=== PATIENT | male | born 1950 | race Caucasian/White ===

== ENCOUNTER 2020-06-29 00:51 | Outpatient (CLI) | payer MEDICARE, MEDICAID, SELFPAY ==
[2020-06-29 17:08] LABS: SARS-CoV-2 RNA PCR Negative
== END 2020-06-29 00:52 | disposition home or self-care (01) ==
PROVIDERS: PCP Internal Medicine; Visit Provider Internal Medicine Critical Care Medicine
DX: R68.89 Other general symptoms and signs (principal); Z20.828 Contact with and (suspected) exposure to other viral communicable diseases
CPT/HCPCS: 87635; C9803; U0003

== ENCOUNTER 2020-07-02 08:30 | Outpatient (CLI) | payer MEDICARE, MEDICAID, SELFPAY ==
--- NOTE | 2020-07-25 16:18 | WPDSLEEPSTUD ---
Sleep Study Date of Study: 07/02/20 Ordering Provider: Ana Pascual MD Interpreting Physician: Ana Pascual MD Sleep Study Type: Polysomnogram Height: 1.7 m Weight: 108.862 kg Body Mass Index: 37.5 Neck Circumference (inches): 17 [place]: 14 Reason for Sleep Study LESLIE; loud snoring, daytime fatigue and need for naps Sleep History Patricio Salgado is a 70 year-old man referred by Dr. Emil Morse for loud snoring, daytime fatigue and need for naps. His sleep is non-refreshing, with frequent tossing and turning at night, which has been going on for years. He occasionally wakes feeling short of breath or having heartburn, belching or coughing. He reports difficulty falling asleep at night. He occasionally has difficulty sleeping when he has a cold, occasionally wakes up gasping for breath at night, never sweats excessively at night, although he does occasionally notice his heart pounding excessively at night. He does not fall asleep involuntarily, while driving, or with physical effort. He does not have loss of muscle tone with strong emotion, does not have daytime difficulty due to excessive sleepiness, rarely feels paralyzed on waking or falling sleep. He never has vivid dreams upon waking or falling asleep, and is never afraid to go to sleep. He occasionally has nightmares, rarely remembers his dreams. He frequently has racing thoughts, denies feeling sad or depressed, occasionally has anxiety. He occasionally has muscular tension, rarely notices parts of his body jerking, frequently kicks at night, occasionally has crawly achy feelings in his legs and occasionally has leg pain at night. He denies morning jaw pain and grinding his teeth during sleep. He is not bothered by pain in the day. Occasionally he is awakened with pain at night. He does not wake in the morning with stiffness, sore or achy muscles, or pain in the neck and spine. He does take naps in the afternoon of evening, and sometimes feels refreshed after a short nap. He feels better in the afternoon than in the morning. He frequently has morning headaches and daytime sleepiness. He wakes with a dry mouth, so severe that he can't swallow until he drinks water during the night. He requires at least 1-2 trips to the bathroom at night to urinate. He goes to bed between 8:00 p.m., usually closer to 9:00 p.m. waking at 5:00 a.m. Weekend schedule is the same. He has 1 cup of coffee in the morning, no soda. His legs are always cold and his feet constantly swell. He has has hypertension, currently better controlled. He has frequent crazy type dreams. He wakes at midnight to take his medications. I explained that he can adjust his meds to take them 3 times a day without waking up in the middle of the night. He says that he has taken his pills like this for years so he is used to waking in the middle of the night. He has multiple medical co-morbidities including hypertension coronary artery disease hyperlipidemia. [place] = 14, elevated. The patient had a home sleep test ordered by Dr. Marcus, cognos bi developer, and the patient said that he could not sleep during the testing as he was constipated. 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
[2020-07-25 19:30] VITALS: BMI 37.5
== END 2020-07-02 08:31 | disposition home or self-care (01) ==
LOC: ANHCSM 08:31
PROVIDERS: PCP Internal Medicine; Visit Provider Internal Medicine Critical Care Medicine
DX: G47.33 Obstructive sleep apnea (adult) (pediatric) (principal)
CPT/HCPCS: 95810

== ENCOUNTER 2022-09-15 11:03 | Inpatient (IN) | payer OTHER, SELFPAY ==
[2022-09-15] VITALS (9 sets, daily range): BP systolic 94–131; BP diastolic 61–84; PULSE 75–113; RESP 14–24; TEMP 36.6–37.6; O2SAT 92–98; BMI 33.7
--- NOTE | ~2022-09-15 | US_ITS ---
EXAMINATION: US right upper quadrant DATE: 09/29/2022 07:16 INDICATION: Gallbladder wall thickening. TECHNIQUE: Multiple grayscale and Doppler ultrasound images of the abdomen were obtained. COMPARISON: Chest CT 09/27/2022 FINDINGS: The visualized portions of the head, body, and tail of the pancreas are normal. The liver i s normal without focal lesion. There is normal flow in main portal vein. The gallbladder is normal in size and contains sludge. The gallstones seen by CT are not well visualized. Gallbladder wall thicke rachel is noted. There was no sonographic Bowser sign. The common duct is not visualized, but was vincenzo l in caliber on the CT . IMPRESSION: 1. Cholelithiasis. Gallbladder wall thickening is most likely secondary to interstitial edema. No gal lbladder distention or sonographic Bowser sign to suggest acute cholecystitis. Reviewed, dictated and finalized at location A. RENCE AND INSTRUCTION LIBRARIAN IMPRESSION: 1. Cholelithiasis. Gallbladder wall thickening is most likely secondary to inte rstitial edema. No gallbladder distention or sonographic Bowser sign to suggest acute cholecystitis.
--- NOTE | ~2022-09-15 | US_ITS ---
Renal-Bladder ultrasound Clinical History: Renal failure Technique: Real-time sonographic imaging of the kidneys and urinary bladder was performed. Findings: The right kidney is not visualized. The left kidney measures 12.3 cm. There is no left hydr onephrosis or renal calculus identified. Left renal cortical echogenicity is within normal limits. No left renal mass lesion is identified. The urinary bladder is partially distended at the time of this exam. No intraluminal echoes are ident ified. No abnormal wall thickening is seen. Impression: Unremarkable left kidney and bladder. Right kidney not seen. Correlate for prior nephrectomy. Reviewed, dictated and finalized at location [] NE COMMUNICATIONS MANAGER Impression: Unremarkable left kidney and bladder. Right kidney not seen. Correlate for prior nephrectomy.
--- NOTE | ~2022-09-15 | US_ITS ---
EXAMINATION: US thoracentesis DATE: 09/28/2022 15:52 INDICATION: Right pleural effusion TECHNIQUE: The procedure and its risks and benefits were discussed with the patient. Potential risks discussed included bleeding, infection, and pneumothorax. The patient understood the risks and agreed to proceed. The skin was prepped and draped in sterile fashion. 1% lidocaine was used for local anes thesia. Under ultrasound guidance, a 5 Fr catheter with trochar was advanced into the right pleural e ffusion. Fluid was aspirated. The catheter was removed, and a dressing was applied. There were no imm ediate complications. FINDINGS: Ultrasound images demonstrate a small right pleural effusion and the catheter within the fluid. IMPRESSION: 1. Successful ultrasound-guided thoracentesis yielding 740 mL of clear yellow fluid. Reviewed, dictated and finalized at location A. OSITOR APPRENTICE
--- NOTE | ~2022-09-15 | XR_ITS ---
EXAMINATION: XR chest 1V portable INDICATION: Shortness of breath TECHNIQUE: Portable AP chest at 1147 hours COMPARISON: None available FINDINGS: There is a small to moderate size right pleural effusion. There are airspace opacities of t he lung bases and right midlung zone. No pneumothorax is identified. Cardiomegaly is noted. IMPRESSION: 1. Yadhn-lk-cftrgbsn size right pleural effusion. 2. Airspace opacities of the lung bases and right midlung zone, consistent with atelectasis versus pn eumonia. Reviewed, dictated and finalized at location A. T MARKETING REPRESENTATIVE IMPRESSION: 1. Ifkqy-nz-akbuaycj size right pleural effusion. 2. Airspace opacities of the lung bases and right midlung zone, consistent with atelectasis versus pneumonia.
--- NOTE | ~2022-09-15 | NM_ITS ---
EXAMINATION: NM renal flow and function DATE: 10/03/2022 15:01 INDICATION: Acute kidney injury TECHNIQUE: 7.5 mCi Tc-99m MAG3 was administered IV. 40 mg furosemide was administered IV immediately afterward. The patient was scanned in the supine position. A posterior abdominal radionuclide angiog haley was obtained. A subsequent time course of static images of the kidneys, ureters, and bladder was obtained. COMPARISON: Ultrasound dated 09/25/2022 FINDINGS: The posterior abdominal radionuclide angiogram and sequential static images show normal size, positio n, and morphology of the left kidney. The right kidney is again not visualized suggesting it is eithe r severely atrophic or developmentally or surgically absent. Peak renal parenchymal uptake was indete rminate with continually rising activity in the left kidney over the 30 minute course of the study. N o evident photopenic region at the left renal hilum to suggest significant hydronephrosis. No evident accumulation of activity at the left renal pelvis no evident activity in the left ureter. IMPRESSION: 1. Indeterminate left renal peak renal parenchymal uptake and half-time of clearance with continuall y increasing activity in the left kidney throughout the 30 minutes of observation consistent with non specific nephropathy. 2. No evident right renal activity suggesting either severe atrophy or developmental or surgical abs ence of the right kidney. Correlate with clinical history. Reviewed, dictated and finalized at location A. DEICER ELEMENT WINDER IMPRESSION: 1. Indeterminate left renal peak renal parenchymal uptake and half-time of cale arance with continually increasing activity in the left kidney throughout the 3 0 minutes of observation consistent with nonspecific nephropathy. 2. No evident right renal activity suggesting either severe atrophy or develop mental or surgical absence of the right kidney. Correlate with clinical history .
--- NOTE | ~2022-09-15 | MR_ITS ---
MRI of the pelvis CLINICAL HISTORY: Osteomyelitis, sacral decubitus ulcer TECHNIQUE: T1-weighted and T2 fat sat images were acquired in the axial, coronal, and sagittal planes . Axial diffusion-weighted imaging and T1 fat sat imaging was performed. Following intravenous admini stration of 20 MultiHance gadolinium, T1-weighted fat-sat imaging was performed in the axial, coronal , and sagittal planes. FINDINGS: Sacral decubitus ulcer is present at the midline just right of midline, at the S4 and S5 le vels, and at the proximal coccyx. The ulcer extends nearly to the level of the bone at the S5 level. Bone marrow signals however are intact. No marrow edema or hypointense T1 marrow signal to suggest os teomyelitis. No fracture. Bilateral hip joint spaces are preserved, with probable mild to moderate diffuse chondromalacia bilat erally. No significant hip joint effusion seen on either side. Remainder of the visualized pelvic bon es also demonstrate normal marrow signal intensity. SI joints are intact. There is diffuse edema of the visualized musculature about the pelvis and bilateral hip regions, incl uding the proximal quadriceps and hamstring musculature, adductor musculature, and gluteal musculatur e. No focal fluid collection or abnormal postcontrast enhancement evident. IMPRESSION: No evidence for osteomyelitis. Sacral decubitus ulcer, as detailed above. Diffuse muscle edema about the pelvis and proximal hips, nonspecific. Reviewed, dictated and finalized at location [] ORK CONSULTANT
--- NOTE | ~2022-09-15 | XR_ITS ---
EXAMINATION: XR chest 1V portable DATE: 09/29/2022 06:48 INDICATION: Right pleural effusion. TECHNIQUE: A single frontal view of the chest was obtained. COMPARISON: Chest single view 09/28/2022, chest CT 09/27/2022 FINDINGS: There is elevation of right hemidiaphragm. There are mild airspace opacities in right mid a nd lower lung zones. No pleural effusion or pneumothorax. The heart size is normal. IMPRESSION: 1. Persistent elevation of right hemidiaphragm. 2. Worsened mild airspace opacities in right mid and lower lung zones, consistent with atelectasis ve rsus pneumonia. Reviewed, dictated and finalized at location A. CTOR OF SPEECH PATHOLOGY IMPRESSION: 1. Persistent elevation of right hemidiaphragm. 2. Worsened mild airspace opacities in right mid and lower lung zones, consiste nt with atelectasis versus pneumonia.
--- NOTE | ~2022-09-15 | CT_ITS ---
EXAMINATION: CT brain wo con DATE: 09/18/2022 22:55 INDICATION: Patient unresponsive. TECHNIQUE: Computed tomography (CT) of the head was performed without intravenous contrast. The dose- length product was 605.33 mGy-cm. Automated exposure control and iterative reconstruction technique w ere employed. COMPARISON: None FINDINGS: Generalized atrophy. There are scattered moderate periventricular and subcortical white mat ter changes, most likely related to small vessel ischemic disease (microangiopathy). There is a large chronic right lacunar infarction. Small chronic left lacunar infarction. There is mild mucosal thick ening of the ethmoid and left sphenoid sinus. Mastoids are pneumatized. There is small right mastoid effusion. No depressed skull fractures. No acute intracranial infarction, hemorrhage or mass. IMPRESSION: 1. No acute intracranial abnormality. 2: Chronic bilateral lacunar infarctions. 3: Chronic age-related findings. Reviewed, dictated and finalized at location A. NO CAGE SUPERVISOR
--- NOTE | ~2022-09-15 | XR_ITS ---
EXAMINATION: XR sacrum coccyx min 2V DATE: 09/15/2022 11:31 INDICATION: Decubitus ulcer TECHNIQUE: AP and lateral views of the sacrum and coccyx were obtained. COMPARISON: None. FINDINGS: Lucency in the soft tissues along the posterior margin of the caudal sacrum and the coccyx likely rep resenting a deep decubitus ulcer which extends to contact the bone. There is cortical erosion and ost eolysis along the posterior margin of S4 consistent with osteomyelitis. Technique 3 mm anterolisthesis L4 on L5. Mild to moderate disc height loss at L4-L5. Polyarticular os teoarthritis, moderate at the left and mild at the right sacral joints and mild at the bilateral hip joints. IMPRESSION: 1. Deep sacral decubitus ulcer with osteolysis along the posterior margin of S4 concerning for osteom yelitis. Reviewed, dictated and finalized at location A. H WINDER IMPRESSION: 1. Deep sacral decubitus ulcer with osteolysis along the posterior margin of S4 concerning for osteomyelitis.
--- NOTE | ~2022-09-15 | XR_ITS ---
EXAMINATION: [id number] DATE: 09/28/2022 15:15 INDICATION: Status post right thoracentesis TECHNIQUE: frontal view of the chest was obtained. COMPARISON: Chest radiograph dated 09/27/2022 FINDINGS: Elevation the right hemidiaphragm with resolution of prior small right pleural effusion. Mild residua l opacities in the right lung base and persistent opacities in the left lower lung zone. No pulmonary edema, pneumothorax or pleural effusion. Heart size within normal limits for AP technique. IMPRESSION: 1. Persistent elevation right hemidiaphragm but no residual pleural effusion post right thoracentesis . 2. Opacities in the bilateral lower lung zones which could represent atelectasis or pneumonia. Reviewed, dictated and finalized at location A. GE WEAVER IMPRESSION: 1. Persistent elevation right hemidiaphragm but no residual pleural effusion po st right thoracentesis. 2. Opacities in the bilateral lower lung zones which could represent atelectasi s or pneumonia.
--- NOTE | ~2022-09-15 | CT_ITS ---
EXAMINATION: CT diagnostic chest wo con DATE: 09/27/2022 14:08 INDICATION: right-sided pleural effusion TECHNIQUE: Computed tomography (CT) of the chest was performed without intravenous contrast. Addition al 3D reconstructions utilizing coronal maximum intensity projection (MIP) were performed. Automated exposure control and iterative reconstruction technique were employed. The dose-length product was 78 4.89 mGy-cm. COMPARISON: None FINDINGS: Moderate-sized right and small left pleural effusions. Near complete collapse of the right lower lobe and additional dependent compressive atelectasis in the remaining lobes of both lungs. No pneumonia or pulmonary edema within the residual aerated portions of the lungs. Calcified right lower lobe nodu le along with calcified bilateral hilar and mediastinal lymphadenopathy consistent with old granuloma tous disease. Heart size is normal. Atherosclerotic coronary artery calcifications. Very small perica rdial effusion. Thoracic aorta is normal in caliber. No pathologically enlarged thoracic lymphadenopa thy. Small amount of ascites in the visualized upper abdomen. Dependent predominant gradient of incre asing density likely representing sludge within the gallbladder. There is also diffuse nonspecific ga llbladder wall thickening. Moderate right glenohumeral osteoarthritis with additional mild degenerati ve skeletal changes in the spine and left shoulder. IMPRESSION: 1. Moderate right and small left pleural effusions with associated partial collapse of the right lowe r lobe and additional dependent atelectasis in the remaining lobes of both lungs. No other evident un derlying lung disease. 2. There is small pericardial effusion. 3. Very small amount of ascites in the abdomen. 4. Sludge in the gallbladder with diffuse nonspecific mild gallbladder wall thickening. Differential would include acute cholecystitis or more likely edema related to heart, renal or liver failure, seps is or other generalized edema forming states which might also account for the ascites and pleural and pericardial effusions. Correlate for Bowser and could consider further evaluation with either right upper quadrant ultrasound or HIDA scan as clinically indicated. Reviewed, dictated and finalized at location A. FEEDER IMPRESSION: 1. Moderate right and small left pleural effusions with associated partial bhavana apse of the right lower lobe and additional dependent atelectasis in the remain ing lobes of both lungs. No other evident underlying lung disease. 2. There is small pericardial effusion. 3. Very small amount of ascites in the abdomen. 4. Sludge in the gallbladder with diffuse nonspecific mild gallbladder wall thi ckening. Differential would include acute cholecystitis or more likely edema re lated to heart, renal or liver failure, sepsis or other generalized edema formi ng states which might also account for the ascites and pleural and pericardial effusions. Correlate for Bowser and could consider further evaluation with [facility] right upper quadrant ultrasound or HIDA scan as clinically indicated.
--- NOTE | ~2022-09-15 | US_ITS ---
EXAMINATION:US venous doppler LE BI INDICATION:Leg pain TECHNIQUE: Multiple grayscale, color flow and Doppler images of the right and left lower extremity de ep venous systems were obtained and reviewed. COMPARISON:No prior studies for comparison. FINDINGS: The common femoral, superficial femoral and popliteal veins demonstrate normal respiratory variation, augmentation and compressibility. Color flow is also seen within the posterior tibial, pe roneal, greater saphenous and profunda veins. IMPRESSION: 1: No lower extremity deep venous thrombosis. Reviewed, dictated and finalized at location A. L SAWYER
--- NOTE | 2022-09-15 11:16 | ED.WOUNDLAC ---
HPI - Wound/Laceration General Chief Complaint: Wound/Laceration Stated Complaint: COCCYX WOUND MORE PAINFUL AND DRAINAGE Time Seen by Provider: 09/15/22 11:07 History of Present Illness HPI narrative: Pt presents with a sacral decubitus ulcer that is getting worse and draining foul smelling purulent material. Pt says this has been treated for a long time but has been getting worse for the last few weeks. Pt denies fever. Pt says it is becoming more painful. Related Data Home Medications Medication Instructions Recorded Confirmed aspirin 81 mg chewable tablet 81 mg PO DAILY 12/20/19 09/15/22 (Juvenal Chewable Low Dose Aspirin) atorvastatin 20 mg tablet 20 mg PO DAILY 12/20/19 09/15/22 hydralazine 25 mg tablet 25 mg PO TID 12/20/19 09/15/22 metoprolol succinate 100 mg 25 mg PO BID 12/20/19 09/15/22 tablet,extended release 24 hr apixaban 5 mg tablet (Eliquis) 5 mg PO BID 09/15/22 09/15/22 gabapentin 300 mg capsule 300 mg PO TID 09/15/22 09/15/22 tamsulosin 0.4 mg capsule 0.4 mg PO HS 09/15/22 09/15/22 Allergies Allergy/AdvReac Type Severity Reaction Status Date / Time No Known Allergies Allergy Unverified 09/15/22 11:16 Review of Systems Review of Systems: All systems reviewed & are unremarkable except as noted in HPI and below PMFSH Past Medical History Medical History (Updated 09/15/22 @ 18:28 by Pilar Nava PA-C) Chronic anticoagulation Coronary artery disease Essential hypertension History of tobacco abuse Hyperlipemia Hypertension Obstructive sleep apnea Stroke (2006) Residual left-sided weakness. Surgical History Surgical History (Updated 09/15/22 @ 18:14 by Pilar Nava PA-C) History of arthroplasty of right knee History of cardiac catheterization History of colonoscopy History of coronary artery stent placement History of nephrectomy, right Reportedly for large kidney stones. Family History Family History (Updated 09/15/22 @ 18:15 by Pilar Nava PA-C) Other Heart disease Hypertension Social History Social History (Updated 09/15/22 @ 18:15 by Pilar Nava PA-C) Social History: Surrogate medical decision maker: Nelda Najera, daughter. Code status: Full code. Smoking packs per day: 1 Smoking cigarettes per day: 20.0 Years smoked: 40 Smoking pack-years: 40.00 Smoking status: Former smoker Tobacco type: cigarettes Second hand tobacco smoke exposure: Yes Smoking end date: 10/12/06 Additional smoking assessment comments: quit in 2009 Alcohol intake: never Substance use: never Lack of Transportation: No Lack of Food: Never True Current Housing: I Have Housing Concerned About Future Housing: Decline to Answer Difficulty Paying Gas/Electric Bills: Decline to Answer Difficulty Paying for Meds: Decline to Answer Currently Unemployed: Decline to Answer Education: Decline to Answer Difficulty w/ Childcare or Family Care: Decline to Answer Additional living arrangements comments: Currently in [facility]. 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 Spiritual care concerns: No Exam Const: General: no acute distress Nutritional Appearance: well nourished Orientation/consciousness: patient oriented x3 Limitations: no limitations Eyes: EOM: EOMs intact bilaterally Neck: Neck: normal visual inspection Resp: Effort & Inspection: normal respiratory effort Auscultation: clear to auscultation bilaterally Cardio: Rate: regular rate Rhythm: regular rhythm GI: GI Palp: Yes Soft to palpation Auscultation: normal bowel sounds Back/Spine/Pelvis: Other: sacral decub with surrounding erythema and yellow drainiage Skin: Wounds: wounds noted Neuro: General: patient oriented x3 Speech: normal speech Extrem: General: no pedal edema Psych: Mental Status: mental status grossly normal Affect: normal affect Attitude: cooperative Course Vital Signs Vital signs:
[2022-09-15 12:14] LABS: Basophils Percent Auto 0.4 % (0.2-1.2); Eosinophils Absolute Auto 0.3 K/mm3 (0-0.3); Eosinophils Percent Auto 3.3 % (0-4.4); Hematocrit 27.7 % (42.0-52.0); Immature Granulocyte Absolute 0.08 K/mm3 (0.00-0.031); Immature Granulocyte Percent A 0.8 % (0-0.5); Lymphocytes Absolute Auto 1.65 K/mm3 (0.9-3.2); Lymphocytes Percent Auto 16.7 % (18.3-44.2); Mean Corpuscular HGB Conc 28.9 g/dl (32-36); Mean Corpuscular Hemoglobin 26.3 pg (26-34); Mean Corpuscular Volume 91.1 fl (80-100); Mean Platelet Volume 10.1 fl (7.4-10.4); Monocytes Percent Auto 9.9 % (2.6-8.5); Neutrophils Absolute Auto 6.8 K/mm3 (1.3-6.7); Neutrophils Percent Auto 68.9 % (45.5-73.1); Platelet Count Result 350 k/mm3 (150-375); Red Blood Count 3.04 M/mm3 (4.6-6.20); Red Cell Distribution Width 19.5 % (11.5-14.5); White Blood Count 9.9 K/mm3 (4.5-10.0)
[2022-09-15 12:24] LABS: Influenza A QL RT-PCR Negative (Negative); Influenza B QL RT-PCR Negative (Negative); RSV RNA, RT-PCR Negative (Negative); SARS-CoV-2 RNA PCR Negative
[2022-09-15 12:26] LABS: Alanine Aminotransferase 18 U/L (6-50); Albumin Level 2.9 g/dL (3.5-5.1); Alkaline Phosphatase 74 U/L (38-126); Anion Gap 4 mmol/L (8-16); Aspartate Amino Transferase 20 U/L (17-59); Bilirubin,Total 0.8 mg/dL (0.2-1.3); Blood Urea Nitrogen 13 mg/dL (9-20); CRP 2.4 mg/dL (<1.0); Calcium 8.4 mg/dL (8.4-10.2); Carbon Dioxide 25 mmol/L (22-30); Chloride 105 mmol/L (98-107); Estimated CRCL calculation 73 ml/min; Estimated Glomerular Filt Rate > 60; Glucose 88 mg/dL (65-110); Sodium 134 mmol/L (137-145)
[2022-09-15 12:31] LABS: INR 1.9; Partial Thromboplastin Time 40.9 SECONDS (22.3-36.8); Prothrombin Time 21.1 Seconds (11.1-14.7)
[2022-09-15 12:54] LABS: Anisocytosis 2+ (NORMAL); Hypochromasia 2+ (NORMAL); Ovalocytes 1+ (NORMAL); Platelet Estimate Adequate (Adequate); Poikilocytosis 1+ (NORMAL); Schistocytes Rare (NORMAL)
[2022-09-15 12:55] LABS: Atypical Lymphocytes Present
--- NOTE | 2022-09-15 14:30 | PM.IMHP ---
H&P: HPI History of Present Illness Date/Time: 09/15/22 14:30 Chief Complaint: Increased drainage from sacral wound. Narrative: This is a very pleasant 72-year-old male with history of stroke, coronary artery disease, hypertension, hyperlipidemia, and benign prostatic hyperplasia with indwelling Starks catheter who presented to the emergency department [facility] for evaluation of increased drainage from a sacral wound. Prior to May he was living in his own home and ambulating with a cane. He suffered a fall at the end of May, sustained no significant injuries, but he was week following hospitalization for what sounds like rhabdomyolysis and he was admitted to the facility for rehab. Unfortunately it does not sound as though he has much rehab there and in fact he is not able to walk any longer. He tells me it is rare for them to even get him out of the bed with a Shannon lift. As such he has developed multiple pressure wounds including a sacral decubitus ulcer which has worsen over the last week or so with malodorous drainage and increasing pain. Radiographs showed a deep sacral decubitus ulcer with osteolysis along the posterior margin of S4 concerning for osteomyelitis and he is being admitted in this setting for IV antibiotics and surgery consultation. He denies fever, chills, sweats, cold and flu symptoms, chest pain, shortness a breath, nausea, vomiting, and diarrhea. No known history of multidrug resistant organisms. Review of Systems Review of Systems: Twelve systems were reviewed and are negative except for as per HPI. FORMERLY [facility], [facility] Past Medical History Medical History (Updated 09/15/22 @ 18:28 by Pilar Nava PA-C) Chronic anticoagulation Coronary artery disease Essential hypertension History of tobacco abuse Hyperlipemia Hypertension Obstructive sleep apnea Stroke (2006) Residual left-sided weakness. Surgical History Surgical History (Updated 09/15/22 @ 18:14 by Pilar Nava PA-C) History of arthroplasty of right knee History of cardiac catheterization History of colonoscopy History of coronary artery stent placement History of nephrectomy, right Reportedly for large kidney stones. Family History Family History (Updated 09/15/22 @ 18:15 by Pilar Nava PA-C) Other Heart disease Hypertension Social History Social History (Updated 09/15/22 @ 18:15 by Pilar Nava PA-C) Social History: Surrogate medical decision maker: Nelda Najera, daughter. Code status: Full code. Smoking packs per day: 1 Smoking cigarettes per day: 20.0 Years smoked: 40 Smoking pack-years: 40.00 Smoking status: Former smoker Tobacco type: cigarettes Second hand tobacco smoke exposure: Yes Smoking end date: 10/12/06 Additional smoking assessment comments: quit in 2009 Alcohol intake: never Substance use: never Lack of Transportation: No Lack of Food: Never True Current Housing: I Have Housing Concerned About Future Housing: Decline to Answer Difficulty Paying Gas/Electric Bills: Decline to Answer Difficulty Paying for Meds: Decline to Answer Currently Unemployed: Decline to Answer Education: Decline to Answer Difficulty w/ Childcare or Family Care: Decline to Answer Additional living arrangements comments: Currently in [facility]. 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 Spiritual care concerns: No Meds Home Medications and Allergies Home Medications Medication Instructions Recorded Confirmed Type aspirin 81 mg chewable tablet 81 mg PO DAILY 12/20/19 09/15/22 History (Juvenal Chewable Low Dose Aspirin) atorvastatin 20 mg tablet 20 mg PO DAILY 12/20/19 09/15/22 History hydralazine 25 mg tablet 25 mg PO TID 12/20/19 09/15/22 History metoprolol succinate 100 mg 25 mg PO BID 12/20/19 09/15/22 History tablet,extended release 24 hr apixaban 5 mg tablet (Eliquis) 5 mg PO BID 09/15
--- NOTE | 2022-09-15 15:20 | PC.NURSE ---
Pt to ultra sound and then to 330-2 after. Valerie forman.
--- NOTE | 2022-09-15 16:02 | ADMGEN ---
This patient, Patricio Salgado, was admitted to [facility] Room 330-02. Patient/family oriented to hospital policies and general routines including ID bracelet, bed and alarms, visiting hours, pain management, procedures, bathroom and other care routines, personal items, smoking policy, room service/diet, and visiting hours. Information on how to activate the Rapid Response Team has been discussed. Patient/Family are encouraged to report perceived risks to care and to ask questions if they do not understand what they are told or what they should do.
--- NOTE | 2022-09-15 17:03 | PM.CNGS ---
Assessment and Plan Assessment and plan (1) Decubitus ulcer of sacral area: Code(s): L89.159 - Pressure ulcer of sacral region, unspecified stage Status: Acute Assessment and Plan: Sacral decubitus ulcer appears to be fairly deep and extensive despite the rather small wound opening on the surface. This will likely require further wound opening and debridement to adequately clean out wound and determine extent of infection. This likely goes all the way down to bone and will require long-term antibiotics. This will also require very careful meticulous care to prevent further wound breakdown in the future. Will plan for Dakin's dressing changes currently and plan to proceed with surgical debridement in the next 1-2 days. (2) Osteomyelitis: Code(s): M86.9 - Osteomyelitis, unspecified Status: Acute (3) Obstructive sleep apnea: Code(s): G47.33 - Obstructive sleep apnea (adult) (pediatric) Status: Acute History of Present Illness Consult details Consult date: 09/15/22 Reason for consult: wound care Requesting physician: Pilar Nava PA-C Narrative: This is a 72-year-old man who I am asked to see for a worsening sacral decubitus ulcer. Patient is currently a resident at a assisted facility. He had a fall about 4-5 months ago and has been essentially bed-bound since then. His daughter is present in the room once he got up to the floor. She states that she has been seeing the wound it has been concerned with it getting worse. She had spoken to the assisted facility recently about this and they were discussing having a specialist see him there in the nursing facility. Over this weekend she was noticing a very foul smell coming from this and she called the ambulance to bring him to the hospital. He has never had any prior surgery to the area and this has been only treated topically so far. Review of Systems Review of Systems: All systems reviewed & are unremarkable except as noted in HPI and below Constitutional: Constitutional: Denies chills and Denies fever(s) Cardiovascular: Cardiovascular: Denies chest pain and Denies dyspnea Respiratory: Respiratory: Denies dyspnea Gastrointestinal: Gastrointestinal: Denies abdominal pain, Denies nausea and Denies vomiting Musculoskeletal: Musculoskeletal: Reports as per HPI [facility] Past Medical History Medical History Coronary arteriosclerosis Essential hypertension History of tobacco abuse Hyperlipemia Hypertension Status post nephrectomy Right kidney, not cancer Stroke 2007 with residual left sided weakness Surgical History Surgical History History of colonoscopy History of nephrectomy, right Social History Social History Smoking packs per day: 1 Smoking cigarettes per day: 20.0 Years smoked: 40 Smoking pack-years: 40.00 Smoking status: Former smoker Tobacco type: cigarettes Second hand tobacco smoke exposure: Yes Smoking end date: 10/12/06 Additional smoking assessment comments: quit in 2009 Alcohol intake: never Substance use: never Lack of Transportation: No Lack of Food: Never True Current Housing: I Have Housing Concerned About Future Housing: Decline to Answer Difficulty Paying Gas/Electric Bills: Decline to Answer Difficulty Paying for Meds: Decline to Answer Currently Unemployed: Decline to Answer Education: Decline to Answer Difficulty w/ Childcare or Family Care: Decline to Answer Spiritual care concerns: No Meds Home Medications and Allergies Home Medications Medication Instructions Recorded Confirmed Type aspirin 81 mg chewable tablet 81 mg PO DAILY 12/20/19 09/15/22 History (Juvenal Chewable Low Dose Aspirin) atorvastatin 20 mg tablet 20 mg PO DAILY 12/20/19 09/15/22 Histo
[2022-09-15] MEDS: ACETAMINOPHEN 325 MG TABLET 650 MG PO (17:31)
[2022-09-15 18:59] LABS: Immature Reticulocyte Fraction 40.4 % (3.0-15.9); Reticulocyte Hemoglobin Conten 26.6 pg (28.2-35.7); Reticulocyte Percent 3.25 % (0.7-4.3)
[2022-09-15 19:33] LABS: Appearance Urine Cloudy (Clear); Bilirubin Urine 1+ (Negative); Blood Urine 3+ (Negative); Color Urine Yellow (Yellow); Glucose Urine UA Trace mg/dL (Negative); Ketones Urine 1+ mg/dL (Negative); Leukocyte Esterase Ur 1+ LEU/UL (Negative); Nitrate Urine Positive (Negative); Protein Urine 2+ mg/dL (Negative); Specific Grav Ur >= 1.030 (1.001-1.035); Urobilinogen Urine >=8.0 mg/dL (<2.0); pH Urine 5.5 (5.0-9.0)
[2022-09-15 19:43] LABS: Add Urine Microscopic? YES; Bacteria Urine 4+ /hpf; Mucus Urine Heavy /lpf; RBC Urine >75 /hpf (0-2); WBC Urine >75 /hpf
[2022-09-15] MEDS: hydrALAZINE HCL 25 MG TABLET PO (20:29)
[2022-09-15] MEDS: GABAPENTIN 300 MG CAPSULE PO (20:29)
[2022-09-15] MEDS: METOPROLOL SUCCINATE EXT REL 25 MG TABCR PO (20:29)
[2022-09-15] MEDS: TAMSULOSIN HCL 0.4 MG CAPSULE PO (20:30)
[2022-09-15 20:33] LABS: Iron 24 ug/dL (49-181)
[2022-09-15 20:42] LABS: Percent Iron Saturation 14 % (20-50)
[2022-09-15 21:42] LABS: Folic Acid 5.1 ng/mL (2.76->20)
--- NOTE | 2022-09-15 22:30 | PC.NURSE ---
Pt has been resting in bed. Pt is a q2 turn. Pt has been sleeping and woke up for his assessment to answer questions. Pt participated and contributed in plan of care. Pt has no complaints of pain at this time. Pt went right back to sleep after assessment. Will continue to monitor pt.
[2022-09-16] VITALS (7 sets, daily range): BP systolic 100–114; BP diastolic 61–64; PULSE 69–83; RESP 18–22; TEMP 36.1–36.6; O2SAT 92–93; BMI 33.0
[2022-09-16 06:41] LABS: Hematocrit 26.2 % (42.0-52.0); Hemoglobin 7.4 g/dL (14.0-18.0); Mean Corpuscular HGB Conc 28.2 g/dl (32-36); Mean Corpuscular Hemoglobin 26.1 pg (26-34); Mean Corpuscular Volume 92.3 fl (80-100); Mean Platelet Volume 10.5 fl (7.4-10.4); Platelet Count Result 307 k/mm3 (150-375); Red Blood Count 2.84 M/mm3 (4.6-6.20); Red Cell Distribution Width 19.7 % (11.5-14.5)
[2022-09-16 07:09] LABS: Anion Gap 5 mmol/L (8-16); Blood Urea Nitrogen 12 mg/dL (9-20); Calcium 7.9 mg/dL (8.4-10.2); Carbon Dioxide 22 mmol/L (22-30); Chloride 104 mmol/L (98-107); Estimated CRCL calculation 80 ml/min; Estimated Glomerular Filt Rate > 60; Glucose 92 mg/dL (65-110); Magnesium 1.9 mg/dL (1.6-2.3); Potassium 3.8 mmol/L (3.4-5.0); Sodium 131 mmol/L (137-145)
[2022-09-16] MEDS: GABAPENTIN 300 MG CAPSULE PO ×3 (08:18→16:54)
[2022-09-16] MEDS: ATORVASTATIN 20 MG TABLET PO (08:18)
[2022-09-16] MEDS: METOPROLOL SUCCINATE EXT REL 25 MG TABCR PO ×2 (08:19→16:54)
[2022-09-16] MEDS: ASPIRIN 81 MG CHEWABLE TABLET PO (08:19)
--- NOTE | 2022-09-16 09:02 | ECG_ITS ---
Measurements Intervals [place] Rate: 77 P: 70 OK: 208 QRS: 33 QRSD: 95 T: 41 QT: 367 QTc: 417 Interpretive Statements SINUS RHYTHM NO PREVIOUS ECG AVAILABLE FOR COMPARISON Electronically Signed On 09-16-2022 15:31:44 AUTOMOTIVE REFINISH TECHNICIAN by Chrissie Bradley M.D.
[2022-09-16] MEDS: SILVERGEL (ELTA) 45 ML 1 APPLIC TOPICAL (11:57)
[2022-09-16] MEDS: SOD HYPOCHLORITE 1/4 STRENGTH 473 ML 1 APPLIC TOPICAL ×2 (11:57→22:29)
[2022-09-16] MEDS: hydrALAZINE HCL 25 MG TABLET PO (16:33)
--- NOTE | 2022-09-16 17:26 | PM.IMPN ---
Progress Note: A&P Assessment and Plan (1) Decubitus ulcer of sacral area: Code(s): L89.159 - Pressure ulcer of sacral region, unspecified stage Status: Acute Assessment and Plan: Imaging shows a sacral decubitus ulcer to bone with findings concerning for osteomyelitis. For now he will be started on broad-spectrum antibiotics to include cefepime and vancomycin pending wound cultures. Dr. Medina has been consulted for probable debridement and his input is greatly appreciated. Wound nurse has been consulted to address other pressure ulcers. 09/16/2022 interval history: 72-year-old male resident of nursing sent to emergency department with worsening sacral ulcer and drainage, patient was seen by General surgery recommended patient will need debridement of the wound and suspect patient may have osteomyelitis, culture will be collected and benign patient is being treated with cefepime and vancomycin, surgery scheduled for tomorrow will follow-up further recommendation to follow will have a PT OT evaluate the patient. (2) Osteomyelitis: Code(s): M86.9 - Osteomyelitis, unspecified Status: Acute Assessment and Plan: Plan is as detailed above. He will need long-term antibiotics. 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 Resume when okay with surgery. (4) Coronary artery disease: Code(s): I25.10 - Atherosclerotic heart disease of [place] coronary artery without angina pectoris Status: Acute Assessment and Plan: Continue aspirin, statin, and beta-dedra. (5) Obstructive sleep apnea: Code(s): G47.33 - Obstructive sleep apnea (adult) (pediatric) Status: Acute Assessment and Plan: CPAP will be provided for the patient to use while hospitalized. (6) Physical debility: Code(s): R53.81 - Other malaise Status: Acute Assessment and Plan: The patient's goal is to ultimately return home, so more than likely he will end up staying with his daughter. It does not sound as though he gets much therapy and in fact does not get out of bed much at his current facility. I encouraged him to do small exercises while in bed and perhaps he would be a candidate for rehab on discharge depending on how he does. (7) Hypertension: Code(s): I10 - Essential (primary) hypertension Status: Acute Assessment and Plan: Blood pressures were reviewed and they are stable. (8) Normocytic anemia: Code(s): D64.9 - Anemia, unspecified Status: Acute Assessment and Plan: Check iron studies, B12, folates. Subjective Date/time seen: 09/16/22 17:26 HPI-Narrative: This is a very pleasant 72-year-old male with history of stroke, coronary artery disease, hypertension, hyperlipidemia, and benign prostatic hyperplasia with indwelling Starks catheter who presented to the emergency department via EMS from [facility] for evaluation of increased drainage from a sacral wound. Prior to May he was living in his own home and ambulating with a cane. He suffered a fall at the end of May, sustained no significant injuries, but he was week following hospitalization for what sounds like rhabdomyolysis and he was admitted to the facility for rehab.? Unfortunately it does not sound as though he has much rehab there and in fact he is not able to walk any longer.? He tells me it is rare for them to even get him out of the bed with a Shannon lift. As such he has developed multiple pressure wounds including a sacral decubitus ulcer which has worsen over the last week or so with malodorous drainage and increasing pain. Radiographs showed a deep sacral decubitus ulcer with osteolysis along the posterior margin of S4 concerning for osteomyelitis and he is being admitted in this setting for IV antibio
[2022-09-16] MEDS: TAMSULOSIN HCL 0.4 MG CAPSULE PO (23:00)
[2022-09-17] VITALS (7 sets, daily range): BP systolic 100–126; BP diastolic 54–82; PULSE 77–85; RESP 16–20; TEMP 36.1–36.5; O2SAT 94–95
[2022-09-17 01:47] LABS: Estimated CRCL calculation 72 ml/min; Estimated Glomerular Filt Rate > 60
[2022-09-17 02:23] LABS: Vancomycin Trough 19.7 ug/mL (10.0-20.0)
--- NOTE | 2022-09-17 04:15 | PC.NURSE ---
Pt has no complaints of pain at this time. Pt expresses no needs at this time. Pt went NPO at midnight. Pt had dressing changed per orders. Pt participated and contributed in plan of care. Will continue to monitor pt.
[2022-09-17] MEDS: SOD HYPOCHLORITE 1/4 STRENGTH 473 ML 1 APPLIC TOPICAL ×2 (08:07→20:19)
[2022-09-17] MEDS: SILVERGEL (ELTA) 45 ML 1 APPLIC TOPICAL (08:07)
[2022-09-17 08:36] LABS: Hematocrit 24.6 % (42.0-52.0); Mean Corpuscular HGB Conc 28.9 g/dl (32-36); Mean Corpuscular Hemoglobin 26.2 pg (26-34); Mean Corpuscular Volume 90.8 fl (80-100); Mean Platelet Volume 10.4 fl (7.4-10.4); Platelet Count Result 279 k/mm3 (150-375); Red Blood Count 2.71 M/mm3 (4.6-6.20); Red Cell Distribution Width 19.3 % (11.5-14.5); White Blood Count 8.1 K/mm3 (4.5-10.0)
[2022-09-17 08:45] LABS: Anion Gap -1 mmol/L (8-16); Blood Urea Nitrogen 13 mg/dL (9-20); Calcium 7.9 mg/dL (8.4-10.2); Carbon Dioxide 27 mmol/L (22-30); Chloride 103 mmol/L (98-107); Estimated CRCL calculation 71 ml/min; Estimated Glomerular Filt Rate > 60; Glucose 93 mg/dL (65-110); Hemoglobin 7.1 g/dL (14.0-18.0); Magnesium 1.8 mg/dL (1.6-2.3); Potassium 3.9 mmol/L (3.4-5.0); Sodium 129 mmol/L (137-145)
[2022-09-17 11:31] LABS: Iron 26 ug/dL (49-181)
[2022-09-17 11:41] LABS: Percent Iron Saturation 19 % (20-50)
--- NOTE | 2022-09-17 12:08 | PM.PNGS ---
Progress Note: A&P Assessment and Plan (1) Decubitus ulcer of sacral area: Code(s): L89.159 - Pressure ulcer of sacral region, unspecified stage Status: Acute Assessment and Plan: Patient not medically stable for surgery today. Blood transfusion ordered by Hospitalist. Will await transfusion and better medical optimization before surgery. Will plan to proceed with debridement in OR tomorrow. (2) Osteomyelitis: Code(s): M86.9 - Osteomyelitis, unspecified Status: Acute (3) Normocytic anemia: Code(s): D64.9 - Anemia, unspecified Status: Acute Subjective Subjective Date/Time Seen: 09/17/22 12:08 Interval history: Patient anemic and hyponatremic, now getting a transfusion. No signs of sepsis currently. Exam Back/Spine/Pelvis: Other: left sacral wound extending to right with purulent drainage. Objective Data Vital Signs Vital Signs: Vital Signs - 24 hr 09/16/22 14:00 09/16/22 16:33 09/16/22 16:54 Temperature 36.6 C Pulse Rate 81 78 Respiratory Rate 20 Blood Pressure 105/62 110/61 Pulse Oximetry 92 Oxygen Delivery 09/16/22 21:10 09/16/22 22:00 09/17/22 06:00 Temperature 36.5 C 36.3 C L Pulse Rate 83 77 Respiratory Rate 22 H 16 Blood Pressure 100/64 105/68 Pulse Oximetry 93 95 Oxygen Delivery Room Air Intake/Output Intake/Output: Intake & Output 09/14/22 09/15/22 09/16/22 09/17/22 23:59 23:59 23:59 23:59 Intake Total 50 1200 50 Output Total 100 400 250 Balance -50 800 -200 Meds/Results Medications: Active Medications Generic Name Dose Route Start Last Admin Trade Name Freq PRN Reason Stop Dose Admin Acetaminophen 650 mg 09/15/22 17:02 09/15/22 17:31 Acetaminophen 325 Mg Tablet PO 650 mg Q6H PRN Administration Mild Pain (1-3) or Fever Hydrocodone Bitart/Acetaminophen 1 tab 09/15/22 17:02 Hydrocodone/Acetaminophen (*Crx) 5-325 Mg Tablet PO Q6H PRN Pain Rated 4-6 Aspirin 81 mg 09/16/22 09:00 09/17/22 08:12 Aspirin 81 Mg Chewable Tablet PO Not Given DAILY JOSE G Atorvastatin Calcium 20 mg 09/16/22 09:00 09/17/22 08:12 Atorvastatin 20 Mg Tablet PO Not Given DAILY [facility] Enoxaparin Sodium 40 mg 09/16/22 09:00 09/17/22 08:12 Enoxaparin 40 Mg/0.4 Ml Syringe SUB-Q Not Given DAILY [facility] Gabapentin 300 mg 09/15/22 18:50 09/17/22 08:12 Gabapentin 300 Mg Capsule PO Not Given TID [facility] Hydralazine HCl 25 mg 09/15/22 18:50 09/17/22 08:12 Hydralazine Hcl 25 Mg Tablet PO Not Given TID JOSE G Cefepime HCl 2 gm in 50 mls @ 100 mls/hr 09/15/22 20:00 09/17/22 08:34 Maxipime 2 Gm/D5w 50 Ml IVPB Infused Q12H JOSE G Infusion Vancomycin HCl 1,500 mg in 500 mls @ 333.333 mls/hr 09/17/22 03:00 09/17/22 03:21 Vancomycin 1,500 Mg/D5w 500 Ml IVPB 333.33 mls/hr Q12H [facility] Administration Sodium Chloride 250 mls @ 30 mls/hr 09/17/22 08:52 Normal Saline Iv IV CONT 09/17/22 17:11 .Q8H20M STA Metoprolol Succinate 25 mg 09/15/22 18:50 09/17/22 08:13 Metoprolol Succinate Ext Rel 25 Mg Tabcr PO Not Given BID [facility] Morphine Sulfate 2 mg 09/15/22 17:02 Morphine Sulfate (*Crx) 2 Mg/Ml Inj IV PUSH Q4H PRN Pain Rated 7-10 Silver Nitrate 1 applic 09/16/22 09:00 09/17/22 08:07 Silvergel (Elta) 45 Ml TOPICAL 1 applic DAILY [facility] Administration Sodium Chloride 1 gm 09/17/22 11:58 Sodium Chloride 1 Gm Tablet PO QAM [facility] Sodium Hypochlorite 1 applic 09/16/22 09:00 09/17/22 08:07 Sod Hypochlorite 1/4 Strength 473 Ml TOPICAL 1 applic Q12HR JOSE G Administration Tamsulosin HCl 0.4 mg 09/15/22 21:00 09/16/22 23:00 Tamsulosin Hcl 0.4 Mg Capsule PO 0.4 mg HS JOSE G Administration Radiology Results: ITS Impressions Sacrum and Coccyx X-Ray 09/15/22 11:39 IMPRESSION: 1. Deep sacral decubitus ulcer with osteolysis along the posterior margin of S4 concerning for osteomyelitis. Ve
[2022-09-17] MEDS: GABAPENTIN 300 MG CAPSULE PO ×2 (12:10→16:47)
[2022-09-17] MEDS: hydrALAZINE HCL 25 MG TABLET PO (12:10)
[2022-09-17] MEDS: SODIUM CHLORIDE 0.9% IV 250 ML 30 ML IV CONT (12:38)
[2022-09-17] MEDS: SODIUM CHLORIDE 1 GM TABLET PO (12:40)
--- NOTE | 2022-09-17 14:59 | PM.IMPN ---
Progress Note: A&P Assessment and Plan (1) Decubitus ulcer of sacral area: Code(s): L89.159 - Pressure ulcer of sacral region, unspecified stage Status: Acute Assessment and Plan: Imaging shows a sacral decubitus ulcer to bone with findings concerning for osteomyelitis. For now he will be started on broad-spectrum antibiotics to include cefepime and vancomycin pending wound cultures. Dr. Medina has been consulted for probable debridement and his input is greatly appreciated. Wound nurse has been consulted to address other pressure ulcers. 09/17/2022 interval history: 72-year-old male resident of alf sent to emergency department with worsening sacral ulcer and drainage, patient was seen by General surgery recommended patient will need debridement of the wound and suspect patient may have osteomyelitis, culture will be collected and benign patient is being treated with cefepime and vancomycin, surgery was scheduled for today however today patient's hemoglobin is 7.1, will give her 1 unit of pack RBC and patient appears to have iron deficiency anemia will give 1 time dose of Venofer 300 mg, patient has mild hyponatremia will start the patient salt tablet to bring patient NA up for surgery tomorrow, will follow-up further recommendation to follow will have a PT OT evaluate the patient. (2) Osteomyelitis: Code(s): M86.9 - Osteomyelitis, unspecified Status: Acute Assessment and Plan: Plan is as detailed above. He will need long-term antibiotics. 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 Resume when okay with surgery. (4) Coronary artery disease: Code(s): I25.10 - Atherosclerotic heart disease of [place] coronary artery without angina pectoris Status: Acute Assessment and Plan: Continue aspirin, statin, and beta-dedra. (5) Obstructive sleep apnea: Code(s): G47.33 - Obstructive sleep apnea (adult) (pediatric) Status: Acute Assessment and Plan: CPAP will be provided for the patient to use while hospitalized. (6) Physical debility: Code(s): R53.81 - Other malaise Status: Acute Assessment and Plan: The patient's goal is to ultimately return home, so more than likely he will end up staying with his daughter. It does not sound as though he gets much therapy and in fact does not get out of bed much at his current facility. I encouraged him to do small exercises while in bed and perhaps he would be a candidate for rehab on discharge depending on how he does. (7) Hypertension: Code(s): I10 - Essential (primary) hypertension Status: Acute Assessment and Plan: Blood pressures were reviewed and they are stable. (8) Normocytic anemia: Code(s): D64.9 - Anemia, unspecified Status: Acute Assessment and Plan: Check iron studies, B12, folates. Subjective Date/time seen: 09/17/22 14:59 Imaging shows a sacral decubitus ulcer to bone with findings concerning for osteomyelitis. For now he will be started on broad-spectrum antibiotics to include cefepime and vancomycin pending wound cultures. Dr. Medina has been consulted for probable debridement and his input is greatly appreciated. Wound nurse has been consulted to address other pressure ulcers. 09/17/2022 interval history: 72-year-old male resident of alf sent to emergency department with worsening sacral ulcer and drainage, patient was seen by General surgery recommended patient will need debridement of the wound and suspect patient may have osteomyelitis, culture will be collected and benign patient is being treated with cefepime and vancomycin, surgery was scheduled for today however today patient's hemoglobin is 7.1, will give her 1 unit of pack RBC and patient appears to
[2022-09-17] MEDS: TAMSULOSIN HCL 0.4 MG CAPSULE PO (20:18)
[2022-09-18] VITALS (15 sets, daily range): BP systolic 91–148; BP diastolic 52–75; PULSE 43–93; RESP 12–22; TEMP 35.9–37.7; O2SAT 91–99
--- NOTE | 2022-09-18 04:25 | PC.NURSE ---
Lost IV access @0420. Attempting new IV start; vancomycin paused.
[2022-09-18 07:04] LABS: Anion Gap 2 mmol/L (8-16); Blood Urea Nitrogen 12 mg/dL (9-20); Calcium 7.8 mg/dL (8.4-10.2); Carbon Dioxide 23 mmol/L (22-30); Chloride 104 mmol/L (98-107); Estimated CRCL calculation 90 ml/min; Estimated Glomerular Filt Rate > 60; Glucose 150 mg/dL (65-110); Magnesium 1.9 mg/dL (1.6-2.3); Potassium 3.6 mmol/L (3.4-5.0); Sodium 129 mmol/L (137-145)
[2022-09-18 07:12] LABS: Hematocrit 27.4 % (42.0-52.0); Hemoglobin 8.2 g/dL (14.0-18.0); Mean Corpuscular HGB Conc 29.9 g/dl (32-36); Mean Corpuscular Volume 90.1 fl (80-100); Mean Platelet Volume 11.3 fl (7.4-10.4); Platelet Count Result 282 k/mm3 (150-375); Red Blood Count 3.04 M/mm3 (4.6-6.20); Red Cell Distribution Width 18.5 % (11.5-14.5); White Blood Count 9.4 K/mm3 (4.5-10.0)
[2022-09-18] MEDS: SILVERGEL (ELTA) 45 ML 1 APPLIC TOPICAL (08:13)
[2022-09-18] MEDS: SOD HYPOCHLORITE 1/4 STRENGTH 473 ML 1 APPLIC TOPICAL ×2 (08:13→21:28)
[2022-09-18] MEDS: SODIUM CHLORIDE 1 GM TABLET PO (08:18)
[2022-09-18] MEDS: hydrALAZINE HCL 25 MG TABLET PO ×3 (09:48→15:34)
[2022-09-18] MEDS: METOPROLOL SUCCINATE EXT REL 25 MG TABCR PO ×3 (09:49→16:48)
--- NOTE | 2022-09-18 11:15 | WPDANESEPPF ---
Anes - Initial Pre Proc Eval Procedure: Operation Date: 09/18/22 12:00 Proposed Procedures p Debridement Sacral Decubitis - Braxton Medina DO Date/Time: 09/18/22 11:15 Surgeon: Chaitanya Kevin MD Pre Op Diagnosis: Decubitus Ulcer Patient Data Age: 72 Gender: M Height: 1.7 m Weight: 94.1 kg Last Vital Signs Temp 36.3 C L 09/18/22 11:01 Pulse 43 L 09/18/22 11:01 Resp 12 09/18/22 11:01 BP 138/63 09/18/22 11:01 Pulse Ox 97 09/18/22 11:01 O2 Del Method Room Air 09/18/22 11:01 Allergies Allergy/AdvReac Type Severity Reaction Status Date / Time No Known Allergies Allergy Unverified 09/15/22 11:16 Home Medications Medication Instructions Recorded Confirmed Type aspirin 81 mg chewable tablet 81 mg PO DAILY 12/20/19 09/15/22 History (Juvenal Chewable Low Dose Aspirin) atorvastatin 20 mg tablet 20 mg PO DAILY 12/20/19 09/15/22 History hydralazine 25 mg tablet 25 mg PO TID 12/20/19 09/15/22 History metoprolol succinate 100 mg 25 mg PO BID 12/20/19 09/15/22 History tablet,extended release 24 hr apixaban 5 mg tablet (Eliquis) 5 mg PO BID 09/15/22 09/15/22 History gabapentin 300 mg capsule 300 mg PO TID 09/15/22 09/15/22 History tamsulosin 0.4 mg capsule 0.4 mg PO HS 09/15/22 09/15/22 History Laboratory Tests 09/17/22 09/17/22 09/18/22 08:14 10:14 06:14 WBC 9.4 K/mm3 K/mm3 (4.5-10.0) RBC 3.04 M/mm3 L M/mm3 (4.6-6.20) Hgb 8.2 g/dL L g/dL (14.0-18.0) Hct 27.4 % L % (42.0-52.0) MCV 90.1 fl fl (80-100) MCH 27.0 pg pg (26-34) MCHC 29.9 g/dl L g/dl (32-36) RDW 18.5 % H % (11.5-14.5) Plt Count 282 k/mm3 k/mm3 (150-375) MPV 11.3 fl H fl (7.4-10.4) Sodium Potassium Chloride Carbon Dioxide Anion Gap BUN Creatinine Estim Creat Clear Calc Estimated GFR Glucose Calcium Magnesium Iron 26 ug/dL L ug/dL (49-181) TIBC 138 ug/dL L ug/dL (265-497) % Saturation 19 % L % (20-50) Ferritin 333.00 ng/mL H ng/mL (11.1-264) Blood Type A Positive Antibody Screen Negative Crossmatch See Detail 09/18/22 06:14 WBC RBC Hgb Hct MCV MCH MCHC RDW Plt Count MPV Sodium 129 mmol/L L mmol/L (137-145) Potassium 3.6 mmol/L mmol/L (3.4-5.0) Chloride 104 mmol/L mmol/L (98-107) Carbon Dioxide 23 mmol/L mmol/L (22-30) Anion Gap 2 mmol/L L mmol/L (8-16) BUN 12 mg/dL mg/dL (9-20) Creatinine 0.70 mg/dL mg/dL (0.7-1.3) Estim Creat Clear Calc 90 ml/min ml/min Estimated GFR > 60 (59 - ) Glucose 150 mg/dL H mg/dL (65-110) Calcium 7.8 mg/dL L mg/dL (8.4-10.2) Magnesium 1.9 mg/dL mg/dL (1.6-2.3) Iron TIBC % Saturation Ferritin Blood Type Antibody Screen Crossmatch Patient hx anesthesia problems: none Family hx anesthesia problems: none Results Review: All pre-operative results and documents have been reviewed as part of the pre-operative evaluation. [facility] Past Medical History Medical History (Updated 09/15/22 @ 18:28 by Pilar Nava PA-C) Chronic anticoagulation Coronary artery disease Essential hypertension History of tobacco abuse Hyperlipemia Hypertension Obstructive sleep apnea Stroke (2006) Residual left-sided weakness. Surgical History Surgical History (Updated 09/15/22 @ 18:14 by Pilar Nava PA-C) History of arthroplasty of right knee History of cardiac catheterization History of colonoscopy History of coronary artery stent placement History of nephrectomy, right Reportedly for large kidney stones. Family History Family History (Update
--- NOTE | 2022-09-18 12:11 | WPDHPUPDATE1 ---
History and Physical Update Update Date/Time: 09/18/22 12:11 History and Physical has been reviewed, including an updated exam of the patient. There are NO changes in the patient's condition. Risks, benefits, and alternatives have been discussed and questions answered. Patient agrees to proceed with procedure.
[2022-09-18] MEDS: BUPIVACAINE HCL 0.5% PF 30 ML VIAL INFILTRATE (12:50)
[2022-09-18] MEDS: LACTATED RINGERS 1,000 ML 30 ML IV CONT (13:03)
--- NOTE | 2022-09-18 13:07 | P.OP_ITS ---
Procedure Note - Detailed Date of Procedure 09/18/22 Pre-op Diagnosis Sacral decubitus ulcer Post-op Diagnosis Same Procedure Performed Sharp excisional debridement of sacral decubitus ulcer including skin, subcutaneous fat, tendon, and muscle measuring 12 cm x 5 cm Surgeon Braxton Medina, DO Anesthesia MAC and Local ( 0.5% bupivacaine) Indications this is a 72-year-old man who presented with a sacral wound from a senior care. He has an open wound that has progressively worsened over the past month. He was found to have an infected wound with purulence drainage and tunneling underneath the skin. Discussions were made with the patient and daughter about treatment options and decision was made to proceed with debridement of sacral decubitus ulcer. Findings Debridement of sacral decubitus ulcer was performed. There appeared to be a wide area of tunneling under an open wound in the left sacral region that extended all the way over to the right sacral region. There was purulence drainage and necrotic tissue within the wound bed. An incision was made over the tunneling area to open the wound completely and adequately d?bride the wound. Debridement included skin, subcutaneous fat, tendon, and muscle measuring 12 cm x 5 cm. Debridement was performed with scissors and 10 blade scalpel. I palpated the region and did not appreciate any definite soft bone within the region. I did not see the need to biopsy any of the bone given the firm nature. After most of the necrotic tissue was excised, the wound was then irrigated with sterile saline and packed with a 4 in Kerlix gauze soaked with Betadine. Description of Procedure Procedure as well as risks, benefits, and alternatives were discussed with the patient and daughter. Written consent was obtained and placed in chart prior to procedure. Patient was brought back to surgical suite. He was placed in the right lateral decubitus position on the operating table. Time-out was done to confirm patient and procedure. IV sedation was then administered by the anesthesia department. His sacral region was prepped and draped in sterile fashion using Betadine prep. The open wound on the left sacral region was probed and carefully inspected. The wound was then opened along the area that was tunneling over to the right sacral region using a 10 blade scalpel. Electrocautery was used for hemostasis. 0.5% bupivacaine was infiltrated locally around the skin. The necrotic tissue was then sharply excised using curved Marroquin scissors. The wound was adequately debrided and then irrigated with sterile saline. Hemostasis was achieved with electrocautery. The wound was then packed with 4 in Kerlix gauze soaked in Betadine. Fluff gauze, ABD pads, and Medipore tape was then applied. The patient was then awakened from anesth esia and transferred to recovery. Estimated Blood Loss 20 Pathology None sent Complications No immediate complications Condition Stable Disposition Floor [facility] Billing Surgery - Charge Forward: Surgery Billing
--- NOTE | 2022-09-18 14:57 | PM.IMPN ---
Progress Note: A&P Assessment and Plan (1) Decubitus ulcer of sacral area: Code(s): L89.159 - Pressure ulcer of sacral region, unspecified stage Status: Acute Assessment and Plan: Imaging shows a sacral decubitus ulcer to bone with findings concerning for osteomyelitis. For now he will be started on broad-spectrum antibiotics to include cefepime and vancomycin pending wound cultures. Dr. Medina has been consulted for probable debridement and his input is greatly appreciated. Wound nurse has been consulted to address other pressure ulcers. 09/18/2022 interval history: 72-year-old male resident of care home sent to emergency department with worsening sacral ulcer and drainage, patient was seen by General surgery recommended patient will need debridement of the wound and suspect patient may have osteomyelitis, culture will be collected and patient is being treated with cefepime and vancomycin, surgery was scheduled for 09/17 however patient's hemoglobin was 7.1, and surgery was postponed, was given 1 unit of pack RBC and patient appears to have iron deficiency anemia gave 1 time dose of Venofer 300 mg, patient has mild hyponatremia will start the patient salt tablet, today patient hemoglobin is 8.2 and patient is scheduled for debridement of performing, will continue present management, will follow-up further recommendation to follow will have a PT OT evaluate the patient. (2) Osteomyelitis: Code(s): M86.9 - Osteomyelitis, unspecified Status: Acute Assessment and Plan: Plan is as detailed above. He will need long-term antibiotics. 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 Resume when okay with surgery. (4) Coronary artery disease: Code(s): I25.10 - Atherosclerotic heart disease of [place] coronary artery without angina pectoris Status: Acute Assessment and Plan: Continue aspirin, statin, and beta-dedra. (5) Obstructive sleep apnea: Code(s): G47.33 - Obstructive sleep apnea (adult) (pediatric) Status: Acute Assessment and Plan: CPAP will be provided for the patient to use while hospitalized. (6) Physical debility: Code(s): R53.81 - Other malaise Status: Acute Assessment and Plan: The patient's goal is to ultimately return home, so more than likely he will end up staying with his daughter. It does not sound as though he gets much therapy and in fact does not get out of bed much at his current facility. I encouraged him to do small exercises while in bed and perhaps he would be a candidate for rehab on discharge depending on how he does. (7) Hypertension: Code(s): I10 - Essential (primary) hypertension Status: Acute Assessment and Plan: Blood pressures were reviewed and they are stable. (8) Normocytic anemia: Code(s): D64.9 - Anemia, unspecified Status: Acute Assessment and Plan: Check iron studies, B12, folates. Subjective Date/time seen: 09/18/22 14:57 09/18/2022 interval history: 72-year-old male resident of care home sent to emergency department with worsening sacral ulcer and drainage, patient was seen by General surgery recommended patient will need debridement of the wound and suspect patient may have osteomyelitis, culture will be collected and patient is being treated with cefepime and vancomycin, surgery was scheduled for 09/17 however patient's hemoglobin was 7.1, and surgery was postponed, was given 1 unit of pack RBC and patient appears to have iron deficiency anemia gave 1 time dose of Venofer 300 mg, patient has mild hyponatremia will start the patient salt tablet, today patient hemoglobin is 8.2 and patient is scheduled for debridement of performing, will continue present management, will follow-
[2022-09-18] MEDS: HYDROcodone/acetaminophen (*CRX) 10-325 MG TABLET 1 TAB PO (15:34)
[2022-09-18] MEDS: GABAPENTIN 300 MG CAPSULE PO ×2 (15:34→16:49)
[2022-09-18] MEDS: TAMSULOSIN HCL 0.4 MG CAPSULE PO (21:27)
--- NOTE | 2022-09-18 22:41 | PM.CCN ---
Critical Care Event Note Summary Code activated: No Narrative: 09/18/2022 at 22:11 A rapid response was called as patient was unresponsive. The patient had had an I and D sacral decubitus ulcer earlier in the day. Evidently since the patient returned from the ER the patient was awake but was not responding verbally to nursing staff. However at the time of the rapid response the patient was sitting upright in bed head of bed at 45?. The patient initially would not open his eyes. After multiple attempts patient did open his eyes. Accu-Chek at this time a rapid response was 130. Blood pressures were within normal limits. After evaluation the patient did start looking around the room. however, he was still not speaking. He was able to weakly wiggle toes his fingers. Was able to move his right great toe. he would not stick his tongue out however when I pulled the patient's mouth open he then did stick his tongue out. He was not diaphoretic and breath sounds were equal. The Patient's heart rate was regular. the patient did not have any obvious facial asymmetry. Patient has evidently been having increasing weakness since he had a fall in May and is no longer able to walk. 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 This could explain fact that the patient was unable to vehicle his toes on his left foot. And also explains why he was unable to squeeze nursing staff hand on the left side. However given the patient is still nonverbal and not at his baseline will check stat CT of the brain to rule out acute CVA. has nursing staff was trying to get an IV in prepare the patient to be taken and his stat CT of the head the patient did become more responsive was moving his upper extremities more equally. He was following commands better but still was not verbal. Acute change in mental status 32 minutes spent in critical care activities. Due to a high probability of clinically significant, life threatening deterioration, the patient required my highest level of preparedness to intervene emergently and I personally spent this critical care time directly and personally managing the patient. This critical care time included obtaining a history; examining the patient; pulse oximetry; ordering and review of studies; arranging urgent treatment with development of a management plan; evaluation of patient's response to treatment; frequent reassessment; and discussions with other providers. It was exclusive of separately billable procedures and treating other patients and teaching time. Please see Assessment and Plan section and the rest of the note for further information on patient assessment and treatment. This case had a high probability of a clinically significant, sudden, or life threatening deterioration of this patient's condition which required my full and direct attention, intervention and personal management. Critical care time: 30 - 74 mins
[2022-09-18 23:06] LABS: Glucose Point of Care 139 mg/dl (65-105)
[2022-09-19] VITALS (9 sets, daily range): BP systolic 98–119; BP diastolic 56–75; PULSE 84–94; RESP 16–24; TEMP 36.2–36.7; O2SAT 91–95
[2022-09-19 03:45] LABS: Hematocrit 31.7 % (42.0-52.0); Hemoglobin 9.3 g/dL (14.0-18.0); Mean Corpuscular HGB Conc 29.3 g/dl (32-36); Mean Corpuscular Hemoglobin 26.5 pg (26-34); Mean Corpuscular Volume 90.3 fl (80-100); Mean Platelet Volume 10.6 fl (7.4-10.4); Platelet Count Result 330 k/mm3 (150-375); Red Blood Count 3.51 M/mm3 (4.6-6.20); Red Cell Distribution Width 18.9 % (11.5-14.5); White Blood Count 13.7 K/mm3 (4.5-10.0)
[2022-09-19 03:57] LABS: Anion Gap 3 mmol/L (8-16); Blood Urea Nitrogen 12 mg/dL (9-20); Calcium 8.2 mg/dL (8.4-10.2); Carbon Dioxide 24 mmol/L (22-30); Chloride 106 mmol/L (98-107); Estimated CRCL calculation 79 ml/min; Estimated Glomerular Filt Rate > 60; Glucose 95 mg/dL (65-110); Magnesium 1.8 mg/dL (1.6-2.3); Potassium 3.9 mmol/L (3.4-5.0); Sodium 133 mmol/L (137-145)
[2022-09-19 04:04] LABS: Vancomycin Trough 32.8 ug/mL (10.0-20.0)
[2022-09-19] MEDS: ATORVASTATIN 20 MG TABLET PO (08:56)
[2022-09-19] MEDS: GABAPENTIN 300 MG CAPSULE PO ×3 (08:56→17:27)
[2022-09-19] MEDS: SODIUM CHLORIDE 1 GM TABLET PO (08:56)
[2022-09-19] MEDS: ASPIRIN 81 MG CHEWABLE TABLET PO (08:56)
[2022-09-19] MEDS: ENOXAPARIN 40 MG/0.4 ML SYRINGE SUB-Q (09:12)
[2022-09-19] MEDS: METOPROLOL SUCCINATE EXT REL 25 MG TABCR PO ×2 (09:12→17:27)
[2022-09-19] MEDS: SOD HYPOCHLORITE 1/4 STRENGTH 473 ML 1 APPLIC TOPICAL ×2 (09:13→20:48)
[2022-09-19] MEDS: SILVERGEL (ELTA) 45 ML 1 APPLIC TOPICAL (09:13)
[2022-09-19] MEDS: hydrALAZINE HCL 25 MG TABLET PO ×3 (09:13→17:27)
--- NOTE | 2022-09-19 09:48 | PCNFU ---
Nutrition Follow-Up Complete: Unintentional weight loss related to reduced appetite and intake as evidenced by pt report Goal:Meet estimated needs -Progressing toward goal Pt current nutrition is Heart healthy diet. Nutrition recommendation: Prasanth BID and Ensure Compact BID for wound healing and weight loss Last recorded weight is 100.1 kg. Bowel Motility: +1 BM 09/16/22 Labs Reviewed: Hgb 9.3, Hct 31.7, Na 133 Meds Noted: Lovenox Skin: Unstageable R heel; stage 4 coccyx Additional Notes: Had I&D to sacral pressure ulcer yesterday. NPO for procedure yesterday. Intakes averaging 66%. Will add supplements and monitor Monitor for diet order, intake, wt, labs, skin. Follow up in 3 days.
--- NOTE | 2022-09-19 10:42 | WPDANESPN ---
Anes - Prog Note Post-Op Date/Time: 09/19/22 09:54 Cardiovascular status: normal Respiratory status: normal Airway patency: baseline Mental status: baseline Post-Op hydration status: normal Vital Signs: Last Vital Signs Temp 97.4 F L 09/19/22 07:25 Pulse 94 09/19/22 09:12 Resp 22 H 09/19/22 07:25 BP 114/75 09/19/22 07:25 Pulse Ox 95 09/19/22 07:25 O2 Del Method Room Air 09/18/22 22:25 O2 Flow Rate 8 09/18/22 13:15 Pain Score (VAS): 0 I/O: Intake & Output 09/18/22 09/19/22 09/19/22 23:59 07:59 15:59 Intake Total 800 200 240 Output Total 275 Balance 800 -75 240 Laboratory Tests 09/19/22 03:10 09/19/22 03:10 09/18/22 09/19/22 09/19/22 22:07 03:10 03:10 WBC 13.7 H RBC 3.51 L Hgb 9.3 L Hct 31.7 L MCV 90.3 MCH 26.5 MCHC 29.3 L RDW 18.9 H Plt Count 330 MPV 10.6 H Sodium 133 L Potassium 3.9 Chloride 106 Carbon Dioxide 24 Anion Gap 3 L BUN 12 Creatinine 0.80 Estim Creat Clear Calc 79 Estimated GFR > 60 Glucose 95 POC Capillary Glucose 139 H Calcium 8.2 L Magnesium 1.8 Vancomycin Trough 09/19/22 03:10 WBC RBC Hgb Hct MCV MCH MCHC RDW Plt Count MPV Sodium Potassium Chloride Carbon Dioxide Anion Gap BUN Creatinine Estim Creat Clear Calc Estimated GFR Glucose POC Capillary Glucose Calcium Magnesium Vancomycin Trough 32.8 H Microbiology 09/15/22 11:59 Blood Blood Culture - Preliminary Proteus Mirabilis 09/15/22 12:40 Decubitus Ulcer Wound Culture - Final Proteus Mirabilis Post-procedural complaints: none Patient Feedback: Patient satisfied with anesthetic care.
--- NOTE | 2022-09-19 11:36 | PM.PNGS ---
Progress Note: A&P Assessment and Plan (1) Decubitus ulcer of sacral area: Code(s): L89.159 - Pressure ulcer of sacral region, unspecified stage Status: Acute Assessment and Plan: Continue local wound care with Dakin's packing changes. Surrounding skin needs to heal a little more, but might eventually be able to place wound vac. Will re-assess on Thursday with wound care nurses and determine half-way treatment. Dr. Garcia will be available over the weekend if there are any significant changes to the wound. (2) Normocytic anemia: Code(s): D64.9 - Anemia, unspecified Status: Acute Subjective Subjective Date/Time Seen: 09/19/22 11:36 Interval history: No acute changes overnight. Nursing changed packing this morning. Exam Back/Spine/Pelvis: Sacrum: other (Skin around sacral wound still macerated and red. No purulent drainage.) Other: No necrotic skin. No bleeding. Objective Data Vital Signs Vital Signs: Vital Signs - 24 hr 09/18/22 13:02 09/18/22 13:15 09/18/22 13:30 Temperature 37.7 C H Pulse Rate 56 L 87 83 Respiratory Rate 22 H 20 22 H Blood Pressure 148/75 H 102/68 100/57 L Pulse Oximetry 97 97 94 Oxygen Delivery Simple Face Mask Simple Face Mask Room Air Oxygen Flow Rate 8 8 09/18/22 13:37 09/18/22 14:01 09/18/22 14:22 Temperature 36.3 C L 36.3 C L Pulse Rate 82 88 84 Respiratory Rate 20 20 19 Blood Pressure 105/61 105/60 108/67 Pulse Oximetry 94 91 91 Oxygen Delivery Room Air Oxygen Flow Rate 09/18/22 15:22 09/18/22 16:33 09/18/22 16:48 Temperature 36.8 C 36.6 C Pulse Rate 90 92 93 Respiratory Rate 19 17 Blood Pressure 107/70 106/74 Pulse Oximetry 91 94 Oxygen Delivery Oxygen Flow Rate 09/18/22 22:25 09/18/22 21:25 09/18/22 20:00 Temperature 36.2 C L 35.9 C L Pulse Rate 84 72 Respiratory Rate 20 20 Blood Pressure 106/64 91/52 L Pulse Oximetry 99 94 Oxygen Delivery Room Air Room Air Oxygen Flow Rate 09/18/22 23:25 09/19/22 03:25 09/19/22 09:12 Temperature 36.2 C L 36.3 C L Pulse Rate 79 86 94 Respiratory Rate 20 20 Blood Pressure 111/69 Pulse Oximetry 94 91 Oxygen Delivery Oxygen Flow Rate 09/19/22 07:25 Temperature 36.3 C L Pulse Rate 94 Respiratory Rate 22 H Blood Pressure 114/75 Pulse Oximetry 95 Oxygen Delivery Oxygen Flow Rate Intake/Output Intake/Output: Intake & Output 09/16/22 09/17/22 09/18/22 09/19/22 23:59 23:59 23:59 23:59 Intake Total 1200 2085 1350 440 Output Total 400 1000 550 275 Balance 800 1085 800 165 Meds/Results Medications: Active Medications Generic Name Dose Route Start Last Admin Trade Name Freq PRN Reason Stop Dose Admin Acetaminophen 650 mg 09/15/22 17:02 09/15/22 17:31 Acetaminophen 325 Mg Tablet PO 650 mg Q6H PRN Administration Mild Pain (1-3) or Fever Hydrocodone Bitart/Acetaminophen 1 tab 09/18/22 13:40 Hydrocodone/Acetaminophen (*Crx) 5-325 Mg Tablet PO Q4H PRN Pain Rated 4-6 Hydrocodone Bitart/Acetaminophen 1 tab 09/18/22 13:40 09/18/22 15:34 Hydrocodone/Acetaminophen (*Crx) 10-325 Mg Tablet PO 1 tab Q6H PRN Administration Pain Rated 7-10 Aspirin 81 mg 09/16/22 09:00 09/19/22 08:56 Aspirin 81 Mg Chewable Tablet PO 81 mg DAILY JOSE G Administration Atorvastatin Calcium 20 mg 09/16/22 09:00 09/19/22 08:56 Atorvastatin 20 Mg Tablet PO 20 mg DAILY JOSE G Administration Enoxaparin Sodium 40 mg 09/16/22 09:00 09/19/22 09:12 Enoxaparin 40 Mg/0.4 Ml Syringe SUB-Q 40 mg DAILY JOSE G Administration Gabapentin 300 mg 09/15/22 18:50 09/19/22 08:56 Gabapentin 300 Mg Capsule PO 300 mg TID JOSE G Administration Hydralazine HCl 25 mg 09/15/22 18:50 09/19/22 09:13 Hydralazine Hcl 25 Mg Tablet PO 25 mg TID JOSE G Administration Cefepime HCl 2 gm in 50 mls @ 100 mls/hr 09/15/22 20:00 09/19/22 08:53 Maxipime 2 Gm/D5w 50 Ml IVPB 100 mls/hr Q12H S
--- NOTE | 2022-09-19 15:15 | PM.IMPN ---
Progress Note: A&P Assessment and Plan (1) Decubitus ulcer of sacral area: Code(s): L89.159 - Pressure ulcer of sacral region, unspecified stage Status: Acute Assessment and Plan: Imaging shows a sacral decubitus ulcer to bone with findings concerning for osteomyelitis. For now he will be started on broad-spectrum antibiotics to include cefepime and vancomycin pending wound cultures. Dr. Medina has been consulted for probable debridement and his input is greatly appreciated. Wound nurse has been consulted to address other pressure ulcers. 09/19/2022 interval history: 72-year-old male resident of [facility] sent to emergency department with worsening sacral ulcer and drainage, patient was seen by General surgery recommended patient will need debridement of the wound and suspect patient may have osteomyelitis, culture will be collected and patient is being treated with cefepime and vancomycin, surgery was scheduled for 09/17 however patient's hemoglobin was 7.1, and surgery was postponed, was given 1 unit of pack RBC and patient appears to have iron deficiency anemia gave 1 time dose of Venofer 300 mg, patient has mild hyponatremia will start the patient salt tablet, on 09/18 patient hemoglobin was 8.2 and patient had debridement of the wound, wound culture collected upon arrival is growing Proteus Mirabalis, sensitive to ceftriaxone, will continue present management, will follow-up further recommendation to follow will have a PT OT evaluate the patient. (2) Osteomyelitis: Code(s): M86.9 - Osteomyelitis, unspecified Status: Acute Assessment and Plan: Plan is as detailed above. He will need long-term antibiotics. 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 Resume when okay with surgery. (4) Coronary artery disease: Code(s): I25.10 - Atherosclerotic heart disease of [place] coronary artery without angina pectoris Status: Acute Assessment and Plan: Continue aspirin, statin, and beta-dedra. (5) Obstructive sleep apnea: Code(s): G47.33 - Obstructive sleep apnea (adult) (pediatric) Status: Acute Assessment and Plan: CPAP will be provided for the patient to use while hospitalized. (6) Physical debility: Code(s): R53.81 - Other malaise Status: Acute Assessment and Plan: The patient's goal is to ultimately return home, so more than likely he will end up staying with his daughter. It does not sound as though he gets much therapy and in fact does not get out of bed much at his current facility. I encouraged him to do small exercises while in bed and perhaps he would be a candidate for rehab on discharge depending on how he does. (7) Hypertension: Code(s): I10 - Essential (primary) hypertension Status: Acute Assessment and Plan: Blood pressures were reviewed and they are stable. (8) Normocytic anemia: Code(s): D64.9 - Anemia, unspecified Status: Acute Assessment and Plan: Check iron studies, B12, folates. Subjective Date/time seen: 09/19/22 15:15 09/19/2022 interval history: 72-year-old male resident of [facility] sent to emergency department with worsening sacral ulcer and drainage, patient was seen by General surgery recommended patient will need debridement of the wound and suspect patient may have osteomyelitis, culture will be collected and patient is being treated with cefepime and vancomycin, surgery was scheduled for 09/17 however patient's hemoglobin was 7.1, and surgery was postponed, was given 1 unit of pack RBC and patient appears to have iron deficiency anemia gave 1 time dose of Venofer 300 mg, patient has mild hyponatremia will start the patient salt tablet, on 09/18 patient hemoglobin was 8.2 and patient had
[2022-09-19 15:54] LABS: Vancomycin Trough 25.3 ug/mL (10.0-20.0)
[2022-09-19] MEDS: TAMSULOSIN HCL 0.4 MG CAPSULE PO (20:42)
[2022-09-20 04:00] VITALS: BP 105/69; PULSE 85; RESP 20; TEMP 36.1; O2SAT 93
[2022-09-20] MEDS: GABAPENTIN 300 MG CAPSULE PO ×3 (08:30→18:16)
[2022-09-20] MEDS: ATORVASTATIN 20 MG TABLET PO (08:31)
[2022-09-20] MEDS: hydrALAZINE HCL 25 MG TABLET PO ×3 (08:31→18:15)
[2022-09-20] MEDS: SODIUM CHLORIDE 1 GM TABLET PO (08:32)
[2022-09-20] MEDS: METOPROLOL SUCCINATE EXT REL 25 MG TABCR PO ×2 (08:32→18:16)
[2022-09-20] MEDS: ASPIRIN 81 MG CHEWABLE TABLET PO (08:32)
[2022-09-20] MEDS: ENOXAPARIN 40 MG/0.4 ML SYRINGE SUB-Q (08:33)
[2022-09-20 08:38] LABS: Hematocrit 25.9 % (42.0-52.0); Hemoglobin 7.3 g/dL (14.0-18.0); Mean Corpuscular HGB Conc 28.2 g/dl (32-36); Mean Corpuscular Hemoglobin 25.8 pg (26-34); Mean Corpuscular Volume 91.5 fl (80-100); Mean Platelet Volume 10.9 fl (7.4-10.4); Platelet Count Result 271 k/mm3 (150-375); Red Blood Count 2.83 M/mm3 (4.6-6.20); Red Cell Distribution Width 18.8 % (11.5-14.5); White Blood Count 10.9 K/mm3 (4.5-10.0)
[2022-09-20 08:50] LABS: Anion Gap 3 mmol/L (8-16); Blood Urea Nitrogen 15 mg/dL (9-20); Carbon Dioxide 23 mmol/L (22-30); Chloride 106 mmol/L (98-107); Estimated CRCL calculation 81 ml/min; Estimated Glomerular Filt Rate > 60; Glucose 92 mg/dL (65-110); Potassium 3.8 mmol/L (3.4-5.0); Sodium 132 mmol/L (137-145)
[2022-09-20 09:19] LABS: Vancomycin Trough 19.6 ug/mL (10.0-20.0)
[2022-09-20] MEDS: SILVERGEL (ELTA) 45 ML 1 APPLIC TOPICAL (09:33)
[2022-09-20] MEDS: SOD HYPOCHLORITE 1/4 STRENGTH 473 ML 1 APPLIC TOPICAL (09:40)
--- NOTE | 2022-09-20 13:32 | PM.IMPN ---
Progress Note: A&P Assessment and Plan (1) Decubitus ulcer of sacral area: Code(s): L89.159 - Pressure ulcer of sacral region, unspecified stage Status: Acute Assessment and Plan: Imaging shows a sacral decubitus ulcer to bone with findings concerning for osteomyelitis. For now he will be started on broad-spectrum antibiotics to include cefepime and vancomycin pending wound cultures. Dr. Medina has been consulted for probable debridement and his input is greatly appreciated. Wound nurse has been consulted to address other pressure ulcers. 09/20/2022 interval history: 72-year-old male resident of [facility] to emergency department with worsening sacral ulcer and drainage, patient was seen by General surgery recommended patient will need debridement of the wound and suspect patient may have osteomyelitis, culture will be collected and patient is being treated with cefepime and vancomycin, surgery was scheduled for 09/17 however patient's hemoglobin was 7.1, and surgery was postponed, was given 1 unit of pack RBC and patient appears to have iron deficiency anemia gave 1 time dose of Venofer 300 mg, patient has mild hyponatremia will start the patient salt tablet, on 09/18 patient hemoglobin was 8.2 and patient had debridement of the wound, wound culture collected upon arrival is growing Proteus Mirabalis as well as one bottle is also the organis,, sensitive to ceftriaxone, discuss with ID pharmacist, will continue IV abx, until patient is discharge, patient will need wound vac per surgeon, will continue present management, will follow-up further recommendation to follow will have a PT OT evaluate the patient. (2) Osteomyelitis: Code(s): M86.9 - Osteomyelitis, unspecified Status: Acute Assessment and Plan: Plan is as detailed above. He will need long-term antibiotics. 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 Resume when okay with surgery. (4) Coronary artery disease: Code(s): I25.10 - Atherosclerotic heart disease of [place] coronary artery without angina pectoris Status: Acute Assessment and Plan: Continue aspirin, statin, and beta-dedra. (5) Obstructive sleep apnea: Code(s): G47.33 - Obstructive sleep apnea (adult) (pediatric) Status: Acute Assessment and Plan: CPAP will be provided for the patient to use while hospitalized. (6) Physical debility: Code(s): R53.81 - Other malaise Status: Acute Assessment and Plan: The patient's goal is to ultimately return home, so more than likely he will end up staying with his daughter. It does not sound as though he gets much therapy and in fact does not get out of bed much at his current facility. I encouraged him to do small exercises while in bed and perhaps he would be a candidate for rehab on discharge depending on how he does. (7) Hypertension: Code(s): I10 - Essential (primary) hypertension Status: Acute Assessment and Plan: Blood pressures were reviewed and they are stable. (8) Normocytic anemia: Code(s): D64.9 - Anemia, unspecified Status: Acute Assessment and Plan: Check iron studies, B12, folates. Subjective Date/time seen: 09/20/22 13:32 Imaging shows a sacral decubitus ulcer to bone with findings concerning for osteomyelitis. For now he will be started on broad-spectrum antibiotics to include cefepime and vancomycin pending wound cultures. Dr. Medina has been consulted for probable debridement and his input is greatly appreciated. Wound nurse has been consulted to address other pressure ulcers. 09/20/2022 interval history: 72-year-old male resident [facility] to emergency department with worsening sacral ulcer and drainage, patient was seen by General s
[2022-09-20 14:00] VITALS: BP 101/70; PULSE 84; RESP 24; TEMP 35.8; O2SAT 95
[2022-09-20 20:00] VITALS: BP 139/99; PULSE 44; RESP 16; TEMP 36.2; O2SAT 93
[2022-09-20] MEDS: TAMSULOSIN HCL 0.4 MG CAPSULE PO (21:40)
[2022-09-21] MEDS: SOD HYPOCHLORITE 1/4 STRENGTH 473 ML 1 APPLIC TOPICAL ×3 (01:27→20:21)
[2022-09-21] MEDS: MELOXICAM 7.5 MG TABLET PO ×2 (01:27→10:10)
[2022-09-21 04:00] VITALS: BP 109/70; PULSE 78; RESP 14; TEMP 36.3; O2SAT 93
[2022-09-21 07:22] LABS: Hematocrit 26.7 % (42.0-52.0); Hemoglobin 7.9 g/dL (14.0-18.0); Mean Corpuscular HGB Conc 29.6 g/dl (32-36); Mean Corpuscular Hemoglobin 27.1 pg (26-34); Mean Corpuscular Volume 91.4 fl (80-100); Mean Platelet Volume 10.5 fl (7.4-10.4); Platelet Count Result 282 k/mm3 (150-375); Red Blood Count 2.92 M/mm3 (4.6-6.20); White Blood Count 12.1 K/mm3 (4.5-10.0)
[2022-09-21 07:35] LABS: Anion Gap 4 mmol/L (8-16); Blood Urea Nitrogen 20 mg/dL (9-20); Calcium 8.2 mg/dL (8.4-10.2); Carbon Dioxide 24 mmol/L (22-30); Chloride 102 mmol/L (98-107); Estimated CRCL calculation 42 ml/min; Estimated Glomerular Filt Rate 43; Glucose 120 mg/dL (65-110); Magnesium 1.9 mg/dL (1.6-2.3); Potassium 4.1 mmol/L (3.4-5.0); Sodium 130 mmol/L (137-145)
[2022-09-21] MEDS: ASPIRIN 81 MG CHEWABLE TABLET PO (10:05)
[2022-09-21 10:06] VITALS: PULSE 70
[2022-09-21] MEDS: METOPROLOL SUCCINATE EXT REL 25 MG TABCR PO ×2 (10:06→16:07)
[2022-09-21] MEDS: GABAPENTIN 300 MG CAPSULE PO ×3 (10:06→16:07)
[2022-09-21] MEDS: SODIUM CHLORIDE 1 GM TABLET PO (10:10)
[2022-09-21] MEDS: ATORVASTATIN 20 MG TABLET PO (10:10)
[2022-09-21] MEDS: hydrALAZINE HCL 25 MG TABLET PO ×3 (10:10→16:06)
[2022-09-21] MEDS: ENOXAPARIN 40 MG/0.4 ML SYRINGE SUB-Q (10:11)
[2022-09-21] MEDS: SILVERGEL (ELTA) 45 ML 1 APPLIC TOPICAL (10:12)
[2022-09-21 14:00] VITALS: BP 93/67; PULSE 77; RESP 20; TEMP 35.9; O2SAT 92
--- NOTE | 2022-09-21 14:14 | PM.IMPN ---
Progress Note: A&P Assessment and Plan (1) Decubitus ulcer of sacral area: Code(s): L89.159 - Pressure ulcer of sacral region, unspecified stage Status: Acute Assessment and Plan: Imaging shows a sacral decubitus ulcer to bone with findings concerning for osteomyelitis. For now he will be started on broad-spectrum antibiotics to include cefepime and vancomycin pending wound cultures. Dr. Medina has been consulted for probable debridement and his input is greatly appreciated. Wound nurse has been consulted to address other pressure ulcers. 09/21/2022 interval history: 72-[facility] with worsening sacral ulcer and drainage, patient was seen by General surgery recommended patient will need debridement of the wound and suspect patient may have osteomyelitis, culture will be collected and patient is being treated with cefepime and vancomycin, surgery was scheduled for 09/17 however patient's hemoglobin was 7.1, and surgery was postponed, was given 1 unit of pack RBC and patient appears to have iron deficiency anemia gave 1 time dose of Venofer 300 mg, patient has mild hyponatremia will start the patient salt tablet, on 09/18 patient hemoglobin was 8.2 and patient had debridement of the wound, wound culture collected upon arrival is growing Proteus Mirabalis as well as one bottle is also the Proteus mirabilis, sensitive to ceftriaxone, another bottle is growing Peptoniphilus assacharolyticus, will discuss with ID pharmacist, will continue IV abx, until patient is discharge, patient will need wound vac per surgeon, will continue present management, will follow-up further recommendation to follow will have a PT OT evaluate the patient. (2) Osteomyelitis: Code(s): M86.9 - Osteomyelitis, unspecified Status: Acute Assessment and Plan: Plan is as detailed above. He will need long-term antibiotics. (3) Chronic anticoagulation: Code(s): Z79.01 - [facility] (current) use of anticoagulants Status: Acute Assessment and Plan: Hold Eliquis in anticipation of debridement. Resume when okay with surgery. (4) Coronary artery disease: Code(s): I25.10 - Atherosclerotic heart disease of [place] coronary artery without angina pectoris Status: Acute Assessment and Plan: Continue aspirin, statin, and beta-dedra. (5) Obstructive sleep apnea: Code(s): G47.33 - Obstructive sleep apnea (adult) (pediatric) Status: Acute Assessment and Plan: CPAP will be provided for the patient to use while hospitalized. (6) Physical debility: Code(s): R53.81 - Other malaise Status: Acute Assessment and Plan: The patient's goal is to ultimately return home, so more than likely he will end up staying with his daughter. It does not sound as though he gets much therapy and in fact does not get out of bed much at his current facility. I encouraged him to do small exercises while in bed and perhaps he would be a candidate for rehab on discharge depending on how he does. (7) Hypertension: Code(s): I10 - Essential (primary) hypertension Status: Acute Assessment and Plan: Blood pressures were reviewed and they are stable. (8) Normocytic anemia: Code(s): D64.9 - Anemia, unspecified Status: Acute Assessment and Plan: Check iron studies, B12, folates. Subjective Date/time seen: 09/21/22 14:14 09/21/2022 interval history: 72-year-old [facility] to emergency department with worsening sacral ulcer and drainage, patient was seen by General surgery recommended patient will need debridement of the wound and suspect patient may have osteomyelitis, culture will be collected and patient is being treated with cefepime and vancomycin, surgery was scheduled for 09/17 however patient's hemoglobin was 7.1, and surgery was postponed, was
[2022-09-21 16:07] VITALS: PULSE 70
[2022-09-21 20:00] VITALS: BP 98/58; PULSE 76; RESP 24; TEMP 36.4; O2SAT 93
[2022-09-21] MEDS: TAMSULOSIN HCL 0.4 MG CAPSULE PO (20:21)
[2022-09-22] VITALS (9 sets, daily range): BP systolic 92–108; BP diastolic 48–64; PULSE 56–77; RESP 12–26; TEMP 35.6–36.6; O2SAT 94–97
[2022-09-22 00:06] LABS: Vancomycin Trough 24.6 ug/mL (10.0-20.0)
[2022-09-22 03:28] LABS: IFOB Positive Control Positive; Immunochemical Fecal Occult Bl Negative (N)
[2022-09-22 07:02] LABS: Hematocrit 25.3 % (42.0-52.0); Hemoglobin 7.4 g/dL (14.0-18.0); Mean Corpuscular HGB Conc 29.2 g/dl (32-36); Mean Corpuscular Hemoglobin 26.9 pg (26-34); Mean Platelet Volume 11.1 fl (7.4-10.4); Platelet Count Result 267 k/mm3 (150-375); Red Blood Count 2.75 M/mm3 (4.6-6.20); Red Cell Distribution Width 19.3 % (11.5-14.5); White Blood Count 10.7 K/mm3 (4.5-10.0)
[2022-09-22 07:08] LABS: Anion Gap 4 mmol/L (8-16); Blood Urea Nitrogen 28 mg/dL (9-20); Calcium 7.8 mg/dL (8.4-10.2); Carbon Dioxide 23 mmol/L (22-30); Chloride 106 mmol/L (98-107); Estimated CRCL calculation 29 ml/min; Estimated Glomerular Filt Rate 28; Glucose 93 mg/dL (65-110); Magnesium 2.1 mg/dL (1.6-2.3); Potassium 4.2 mmol/L (3.4-5.0); Sodium 133 mmol/L (137-145)
[2022-09-22] MEDS: SODIUM CHLORIDE 0.9% IV 1,000 ML 125 ML IV CONT ×2 (08:07→19:34)
[2022-09-22] MEDS: METOPROLOL SUCCINATE EXT REL 25 MG TABCR PO ×2 (08:08→16:17)
[2022-09-22] MEDS: ASPIRIN 81 MG CHEWABLE TABLET PO (08:08)
[2022-09-22] MEDS: hydrALAZINE HCL 25 MG TABLET PO ×3 (08:08→16:16)
[2022-09-22] MEDS: MELOXICAM 7.5 MG TABLET PO (08:08)
[2022-09-22] MEDS: GABAPENTIN 300 MG CAPSULE PO ×3 (08:08→16:17)
[2022-09-22] MEDS: SODIUM CHLORIDE 1 GM TABLET PO (08:08)
[2022-09-22] MEDS: ENOXAPARIN 40 MG/0.4 ML SYRINGE SUB-Q (08:09)
[2022-09-22] MEDS: ATORVASTATIN 20 MG TABLET PO (08:09)
[2022-09-22] MEDS: SOD HYPOCHLORITE 1/4 STRENGTH 473 ML 1 APPLIC TOPICAL (08:10)
[2022-09-22] MEDS: SILVERGEL (ELTA) 45 ML 1 APPLIC TOPICAL (08:10)
--- NOTE | 2022-09-22 10:28 | PCNFU ---
Nutrition Follow-Up Complete: Unintentional weight loss related to reduced appetite and intake as evidenced by pt report Goal: Meet estimated needs - not meeting goal. Continue same goal Pt current nutrition is Heart healthy diet. Intakes 30% average. Prasanth BID, Ensure compact BID. Nutrition recommendation: Continue with same diet order and supplements. Encourage intakes. Last recorded weight is 96.4 kg. Bowel Motility: +2 BM 09/22/22 Labs Reviewed: Hgb 7.4, Hct 25.3, Na 133, BUN 28, Creat 2.3 Meds Noted: Lovenox, cefepime, zofran, vanco Skin: Unstageable R heel. Stage IV coccyx, s/p I&D Additional Notes: [facility]. Appetite has decreased. Monitor for diet order, intake, wt, labs, skin. Follow up in 3 days.
[2022-09-22 11:40] LABS: Vancomycin Random 20.9 ug/mL (10-20)
--- NOTE | 2022-09-22 12:20 | PM.PNGS ---
Progress Note: A&P Assessment and Plan (1) Decubitus ulcer of sacral area: Code(s): L89.159 - Pressure ulcer of sacral region, unspecified stage Status: Acute Assessment and Plan: Wound assessed with wound care today. Appears to be healing well. Will try switching to wound vac therapy. Continue frequent turning. (2) Normocytic anemia: Code(s): D64.9 - Anemia, unspecified Status: Acute Plan I have discussed the patient's case and plan of care with Dr. Medina. Subjective Subjective Date/Time Seen: 09/22/22 12:20 Patient reports: no new complaints Interval history: Patient seen and examined with Dr. Medina and the wound care nurse, Rebecca. No acute changes overnight. Nursing has not changed the dressing yet today. Exam Back/Spine/Pelvis: Other: Sacral dressing removed with some granulation tissue forming and some yellow slough in the right side of the wound, but no purulent drainage or foul odor. Surrounding skin between the wound and anal verge is macerated. Objective Data Vital Signs Vital Signs: Vital Signs - 24 hr 09/21/22 14:00 09/21/22 16:07 09/21/22 20:00 Temperature 96.7 F L 97.5 F L Pulse Rate 77 70 76 Respiratory Rate 20 24 H Blood Pressure 93/67 L 98/58 L Pulse Oximetry 92 93 Oxygen Delivery 09/21/22 20:00 09/22/22 00:00 09/22/22 04:00 Temperature 97.3 F L 97.8 F Pulse Rate 76 77 Respiratory Rate 24 H 26 H Blood Pressure 108/58 L 108/62 Pulse Oximetry 94 96 Oxygen Delivery Room Air 09/22/22 06:00 09/22/22 08:08 09/22/22 08:00 Temperature 97.8 F Pulse Rate 77 56 L Respiratory Rate 26 H Blood Pressure 108/62 Pulse Oximetry 96 Oxygen Delivery Room Air Intake/Output Intake/Output: Intake & Output 09/19/22 09/20/22 09/21/22 09/22/22 23:59 23:59 23:59 23:59 Intake Total 762 1190 610 340 Output Total 525 500 50 50 Balance 237 690 560 290 Meds/Results Medications: Active Medications Generic Name Dose Route Start Last Admin Trade Name Freq PRN Reason Stop Dose Admin Acetaminophen 650 mg 09/15/22 17:02 09/15/22 17:31 Acetaminophen 325 Mg Tablet PO 650 mg Q6H PRN Administration Mild Pain (1-3) or Fever Hydrocodone Bitart/Acetaminophen 1 tab 09/18/22 13:40 Hydrocodone/Acetaminophen (*Crx) 5-325 Mg Tablet PO Q4H PRN Pain Rated 4-6 Hydrocodone Bitart/Acetaminophen 1 tab 09/18/22 13:40 09/18/22 15:34 Hydrocodone/Acetaminophen (*Crx) 10-325 Mg Tablet PO 1 tab Q6H PRN Administration Pain Rated 7-10 Aspirin 81 mg 09/16/22 09:00 09/22/22 08:08 Aspirin 81 Mg Chewable Tablet PO 81 mg DAILY JOSE G Administration Atorvastatin Calcium 20 mg 09/16/22 09:00 09/22/22 08:09 Atorvastatin 20 Mg Tablet PO 20 mg DAILY JOSE G Administration Enoxaparin Sodium 40 mg 09/16/22 09:00 09/22/22 08:09 Enoxaparin 40 Mg/0.4 Ml Syringe SUB-Q 40 mg DAILY JOSE G Administration Gabapentin 300 mg 09/15/22 18:50 09/22/22 12:11 Gabapentin 300 Mg Capsule PO 300 mg TID JOSE G Administration Hydralazine HCl 25 mg 09/15/22 18:50 09/22/22 12:11 Hydralazine Hcl 25 Mg Tablet PO 25 mg TID JOSE G Administration Cefepime HCl 2 gm in 50 mls @ 100 mls/hr 09/15/22 20:00 09/22/22 07:51 Maxipime 2 Gm/D5w 50 Ml IVPB 100 mls/hr Q12H JOSE G Administration Vancomycin HCl 1,500 mg in 500 mls @ 333.333 mls/hr 09/22/22 12:00 Vancomycin 1,500 Mg/D5w 500 Ml IVPB Q48H JOSE G Sodium Chloride 1,000 mls @ 125 mls/hr 09/22/22 08:00 09/22/22 08:07 Normal Saline Iv IV CONT 125 mls/hr .Q8H JOSE G Administration Meloxicam 7.5 mg 09/20/22 23:00 09/22/22 08:08 Meloxicam 7.5 Mg Tablet PO 7.5 mg DAILY@0800 JOSE G Administration Metoprolol Succinate 25 mg 09/15/22 18:50 09/22/22 08:08 Metoprolol Succinate Ext Rel 25 Mg Tabcr PO 25 mg BID JOSE G Administration Morphine Sulfate 2 mg 09/18/22 13:40 Morphine Sulfate (*Crx) 2 Mg/Ml Inj IV PUSH
--- NOTE | 2022-09-22 15:22 | PM.IMPN ---
Progress Note: A&P Assessment and Plan (1) Decubitus ulcer of sacral area: Code(s): L89.159 - Pressure ulcer of sacral region, unspecified stage Status: Acute Assessment and Plan: Imaging shows a sacral decubitus ulcer to bone with findings concerning for osteomyelitis. For now he will be started on broad-spectrum antibiotics to include cefepime and vancomycin pending wound cultures. Dr. Medina has been consulted for probable debridement and his input is greatly appreciated. Wound nurse has been consulted to address other pressure ulcers. 09/22/2022 interval history: 72-year-old male resident of [facility] sent to emergency department with worsening sacral ulcer and drainage, patient was seen by General surgery recommended patient will need debridement of the wound and suspect patient may have osteomyelitis, culture will be collected and patient is being treated with cefepime and vancomycin, surgery was scheduled for 09/17 however patient's hemoglobin was 7.1, and surgery was postponed, was given 1 unit of pack RBC and patient appears to have iron deficiency anemia gave 1 time dose of Venofer 300 mg, patient has mild hyponatremia will start the patient salt tablet, on 09/18 patient hemoglobin was 8.2 and patient had debridement of the wound, wound culture collected upon arrival is growing Proteus Mirabalis as well as one bottle is also the Proteus mirabilis, sensitive to ceftriaxone, another bottle is growing Peptoniphilus assacharolyticus, discussed with ID pharmacist, suspect most likely contamination, recommended to DC vancomycin continue IV Rocephin and further recommendation to follow, patient was seen by surgery service wound is healing, patient will need wound vac per surgeon, will continue present management, will follow-up further recommendation to follow will have a PT OT evaluate the patient. (2) Osteomyelitis: Code(s): M86.9 - Osteomyelitis, unspecified Status: Acute Assessment and Plan: Plan is as detailed above. He will need long-term antibiotics. (3) Chronic anticoagulation: Code(s): Z79.01 - [facility] (current) use of anticoagulants Status: Acute Assessment and Plan: Hold Eliquis in anticipation of debridement. Resume when okay with surgery. (4) Coronary artery disease: Code(s): I25.10 - Atherosclerotic heart disease of [place] coronary artery without angina pectoris Status: Acute Assessment and Plan: Continue aspirin, statin, and beta-dedra. (5) Obstructive sleep apnea: Code(s): G47.33 - Obstructive sleep apnea (adult) (pediatric) Status: Acute Assessment and Plan: CPAP will be provided for the patient to use while hospitalized. (6) Physical debility: Code(s): R53.81 - Other malaise Status: Acute Assessment and Plan: The patient's goal is to ultimately return home, so more than likely he will end up staying with his daughter. It does not sound as though he gets much therapy and in fact does not get out of bed much at his current facility. I encouraged him to do small exercises while in bed and perhaps he would be a candidate for rehab on discharge depending on how he does. (7) Hypertension: Code(s): I10 - Essential (primary) hypertension Status: Acute Assessment and Plan: Blood pressures were reviewed and they are stable. (8) Normocytic anemia: Code(s): D64.9 - Anemia, unspecified Status: Acute Assessment and Plan: Check iron studies, B12, folates. Subjective Date/time seen: 09/22/22 15:22 09/22/2022 interval history: 72-year-old male resident of [facility] sent to emergency department with worsening sacral ulcer and drainage, patient was seen by General surgery recommended patient will need debridement of the wound and suspect patient may have osteomyelitis, culture will be collected and patient is being treated with cefep
[2022-09-22] MEDS: TAMSULOSIN HCL 0.4 MG CAPSULE PO (21:01)
[2022-09-23] MEDS: SODIUM CHLORIDE 0.9% IV 1,000 ML 125 ML IV CONT ×4 (03:32→21:43)
[2022-09-23 06:00] VITALS: BP 103/66; PULSE 73; RESP 12; TEMP 36.3; O2SAT 96
[2022-09-23 08:00] VITALS: PULSE 73; RESP 12; O2SAT 96
[2022-09-23] MEDS: METOPROLOL SUCCINATE EXT REL 25 MG TABCR PO ×2 (08:44→18:05)
[2022-09-23] MEDS: GABAPENTIN 300 MG CAPSULE PO ×3 (08:44→18:05)
[2022-09-23] MEDS: ATORVASTATIN 20 MG TABLET PO (08:44)
[2022-09-23] MEDS: SODIUM CHLORIDE 1 GM TABLET PO (08:44)
[2022-09-23] MEDS: MELOXICAM 7.5 MG TABLET PO (08:44)
[2022-09-23] MEDS: hydrALAZINE HCL 25 MG TABLET PO ×3 (08:44→18:05)
[2022-09-23] MEDS: ASPIRIN 81 MG CHEWABLE TABLET PO (08:45)
[2022-09-23] MEDS: ENOXAPARIN 40 MG/0.4 ML SYRINGE SUB-Q (08:45)
[2022-09-23] MEDS: SILVERGEL (ELTA) 45 ML 1 APPLIC TOPICAL (08:46)
[2022-09-23] MEDS: SOD HYPOCHLORITE 1/4 STRENGTH 473 ML 1 APPLIC TOPICAL ×2 (08:46→21:39)
[2022-09-23 09:22] LABS: Hematocrit 24.9 % (42.0-52.0); Hemoglobin 7.3 g/dL (14.0-18.0); Mean Corpuscular HGB Conc 29.3 g/dl (32-36); Mean Corpuscular Hemoglobin 26.6 pg (26-34); Mean Corpuscular Volume 90.9 fl (80-100); Platelet Count Result 238 k/mm3 (150-375); Red Blood Count 2.74 M/mm3 (4.6-6.20); Red Cell Distribution Width 18.9 % (11.5-14.5); White Blood Count 9.3 K/mm3 (4.5-10.0)
[2022-09-23 09:31] LABS: Anion Gap 4 mmol/L (8-16); Blood Urea Nitrogen 29 mg/dL (9-20); Calcium 7.6 mg/dL (8.4-10.2); Carbon Dioxide 20 mmol/L (22-30); Chloride 110 mmol/L (98-107); Estimated CRCL calculation 28 ml/min; Estimated Glomerular Filt Rate 26; Glucose 112 mg/dL (65-110); Sodium 134 mmol/L (137-145)
[2022-09-23 13:42] VITALS: BP 98/64; PULSE 66; RESP 18; TEMP 36.1; O2SAT 96
--- NOTE | 2022-09-23 18:15 | PM.IMPN ---
Progress Note: A&P Assessment and Plan (1) Decubitus ulcer of sacral area: Code(s): L89.159 - Pressure ulcer of sacral region, unspecified stage Status: Acute Assessment and Plan: Imaging shows a sacral decubitus ulcer to bone with findings concerning for osteomyelitis. For now he will be started on broad-spectrum antibiotics to include cefepime and vancomycin pending wound cultures. Dr. Medina has been consulted for probable debridement and his input is greatly appreciated. Wound nurse has been consulted to address other pressure ulcers. 09/23/2022 interval history: 72-year-old [facility] emergency department with worsening sacral ulcer and drainage, patient was seen by General surgery recommended patient will need debridement of the wound and suspect patient may have osteomyelitis, culture will be collected and patient is being treated with cefepime and vancomycin, surgery was scheduled for 09/17 however patient's hemoglobin was 7.1, and surgery was postponed, was given 1 unit of pack RBC and patient appears to have iron deficiency anemia gave 1 time dose of Venofer 300 mg, patient has mild hyponatremia will start the patient salt tablet, on 09/18 patient hemoglobin was 8.2 and patient had debridement of the wound, wound culture collected upon arrival is growing Proteus Mirabalis as well as one bottle is also the Proteus mirabilis, sensitive to ceftriaxone, another bottle is growing Peptoniphilus assacharolyticus, discussed with ID pharmacist, suspect most likely contamination, recommended to DC vancomycin continue IV Rocephin and further recommendation to follow, patient was seen by surgery service wound is healing, today patient had wound vac placed per surgeon, discussed with surgery service during the debridement did not notice any bone erosion suspicious for osteomyelitis however recommended to do the pelvic MRI to rule out osteomyelitis, pelvic MRI is ordered, will continue present management, will follow-up further recommendation to follow will have a PT OT evaluate the patient. (2) Osteomyelitis: Code(s): M86.9 - Osteomyelitis, unspecified Status: Acute Assessment and Plan: Plan is as detailed above. He will need long-term antibiotics. (3) Chronic anticoagulation: Code(s): Z79.01 - [facility] (current) use of anticoagulants Status: Acute Assessment and Plan: Hold Eliquis in anticipation of debridement. Resume when okay with surgery. (4) Coronary artery disease: Code(s): I25.10 - Atherosclerotic heart disease of [place] coronary artery without angina pectoris Status: Acute Assessment and Plan: Continue aspirin, statin, and beta-dedra. (5) Obstructive sleep apnea: Code(s): G47.33 - Obstructive sleep apnea (adult) (pediatric) Status: Acute Assessment and Plan: CPAP will be provided for the patient to use while hospitalized. (6) Physical debility: Code(s): R53.81 - Other malaise Status: Acute Assessment and Plan: The patient's goal is to ultimately return home, so more than likely he will end up staying with his daughter. It does not sound as though he gets much therapy and in fact does not get out of bed much at his current facility. I encouraged him to do small exercises while in bed and perhaps he would be a candidate for rehab on discharge depending on how he does. (7) Hypertension: Code(s): I10 - Essential (primary) hypertension Status: Acute Assessment and Plan: Blood pressures were reviewed and they are stable. (8) Normocytic anemia: Code(s): D64.9 - Anemia, unspecified Status: Acute Assessment and Plan: Check iron studies, B12, folates. Subjective Date/time seen: 09/23/22 18:15 09/23/2022 interval history: 72-year-old male [facility] sent to emergency department with worsening sacral ulcer a
[2022-09-23 19:32] VITALS: BP 98/62; PULSE 69; RESP 17; TEMP 36.5; O2SAT 98
[2022-09-23] MEDS: TAMSULOSIN HCL 0.4 MG CAPSULE PO (21:39)
[2022-09-23] MEDS: AMOXICILLIN/CLAVULANATE K 500-125 MG TAB 1 TABLET PO (21:39)
[2022-09-24] VITALS (8 sets, daily range): BP systolic 93–116; BP diastolic 52–71; PULSE 64–77; RESP 16–20; TEMP 36.2–36.6; O2SAT 93–99
[2022-09-24 06:48] LABS: Mean Corpuscular HGB Conc 28.4 g/dl (32-36); Mean Corpuscular Hemoglobin 26.3 pg (26-34); Mean Corpuscular Volume 92.6 fl (80-100); Mean Platelet Volume 10.7 fl (7.4-10.4); Platelet Count Result 246 k/mm3 (150-375); Red Cell Distribution Width 18.6 % (11.5-14.5); White Blood Count 8.7 K/mm3 (4.5-10.0)
[2022-09-24 06:53] LABS: Anion Gap 5 mmol/L (8-16); Blood Urea Nitrogen 27 mg/dL (9-20); Calcium 7.6 mg/dL (8.4-10.2); Carbon Dioxide 19 mmol/L (22-30); Chloride 109 mmol/L (98-107); Estimated CRCL calculation 28 ml/min; Estimated Glomerular Filt Rate 26; Glucose 82 mg/dL (65-110); Potassium 3.8 mmol/L (3.4-5.0); Sodium 133 mmol/L (137-145)
[2022-09-24 07:12] LABS: Hemoglobin 7.1 g/dL (14.0-18.0)
[2022-09-24] MEDS: ENOXAPARIN 40 MG/0.4 ML SYRINGE SUB-Q (08:52)
[2022-09-24] MEDS: MELOXICAM 7.5 MG TABLET PO (08:52)
[2022-09-24] MEDS: SODIUM CHLORIDE 1 GM TABLET PO (08:52)
[2022-09-24] MEDS: METOPROLOL SUCCINATE EXT REL 25 MG TABCR PO ×2 (08:52→17:12)
[2022-09-24] MEDS: ATORVASTATIN 20 MG TABLET PO (08:52)
[2022-09-24] MEDS: ASPIRIN 81 MG CHEWABLE TABLET PO (08:52)
[2022-09-24] MEDS: GABAPENTIN 300 MG CAPSULE PO ×3 (08:53→17:12)
[2022-09-24] MEDS: SILVERGEL (ELTA) 45 ML 1 APPLIC TOPICAL (08:53)
[2022-09-24] MEDS: hydrALAZINE HCL 25 MG TABLET PO ×3 (08:53→17:12)
[2022-09-24] MEDS: AMOXICILLIN/CLAVULANATE K 500-125 MG TAB 1 TABLET PO ×2 (08:53→20:53)
[2022-09-24] MEDS: SOD HYPOCHLORITE 1/4 STRENGTH 473 ML 1 APPLIC TOPICAL ×2 (08:54→20:51)
[2022-09-24] MEDS: SODIUM CHLORIDE 0.9% IV 1,000 ML 125 ML IV CONT ×2 (09:11→23:25)
--- NOTE | 2022-09-24 12:12 | PM.IMPN ---
Progress Note: A&P Assessment and Plan (1) Decubitus ulcer of sacral area: Code(s): L89.159 - Pressure ulcer of sacral region, unspecified stage Status: Acute Assessment and Plan: Imaging shows a sacral decubitus ulcer to bone with findings concerning for osteomyelitis. For now he will be started on broad-spectrum antibiotics to include cefepime and vancomycin pending wound cultures. Dr. Medina has been consulted for probable debridement and his input is greatly appreciated. Wound nurse has been consulted to address other pressure ulcers. plan for wound VAC therapy 09/23/2022 interval history: 72-year-old male resident of [facility] sent to emergency department with worsening sacral ulcer and drainage, patient was seen by General surgery recommended patient will need debridement of the wound and suspect patient may have osteomyelitis, culture will be collected and patient is being treated with cefepime and vancomycin, surgery was scheduled for 09/17 however patient's hemoglobin was 7.1, and surgery was postponed, was given 1 unit of pack RBC and patient appears to have iron deficiency anemia gave 1 time dose of Venofer 300 mg, patient has mild hyponatremia will start the patient salt tablet, on 09/18 patient hemoglobin was 8.2 and patient had debridement of the wound, wound culture collected upon arrival is growing Proteus Mirabalis as well as one bottle is also the Proteus mirabilis, sensitive to ceftriaxone, another bottle is growing Peptoniphilus assacharolyticus, discussed with ID pharmacist, suspect most likely contamination, recommended to DC vancomycin continue IV Rocephin and further recommendation to follow, patient was seen by surgery service wound is healing, today patient had wound vac placed per surgeon, discussed with surgery service during the debridement did not notice any bone erosion suspicious for osteomyelitis however recommended to do the pelvic MRI to rule out osteomyelitis, pelvic MRI is ordered, will continue present management, will follow-up further recommendation to follow will have a PT OT evaluate the patient. 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 Wound culture with Proteus mirabilis sensitive to ceftriaxone another bottle with Pepto only for less sec or lytic us which most likely contamination. Remains on IV Rocephin. Wound VAC placement planned status post debridement 09/18/2022. Pelvic MRI With no evidence of osteomyelitis but sacral decubitus ulcer but the ulcer extends nearly to the level of the bone at S5 level there is noted diffuse muscle edema about the pelvis and proximal hip which nonspecific finding. Seems like antibiotic has been switched to Augmentin until 10/02/2022 total 2 weeks Proteus mirabilis bacteremia sensitive to cefepime, swutched to augmentin for total 2 weeks course. Anemia acute on chronic. Evidence of iron deficiency. Received Venofer. Hyponatremia mild on salt tablet ULISSES baseline creatinine 0.8-1 creatinine bumped up to 2. Currently at 2.5 stable. urine output is not charted will add intake and output. 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 DVT prophylaxis on Lovenox with ongoing anemia will hold need to switch to heparin subQ (2) Osteomyelitis: Code(s): M86.9 - Osteomyelitis, unspecified Status: Acute Assessment and Plan: Plan is as detailed above. He will need long-term antibiotics. 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 Resume when okay with surgery. may need to resume this but with anemia will hold off today and reassess in a.m. (4) Coronary artery disease: C
--- NOTE | 2022-09-24 14:10 | PM.PNGS ---
Progress Note: A&P Assessment and Plan (1) Decubitus ulcer of sacral area: Code(s): L89.159 - Pressure ulcer of sacral region, unspecified stage Status: Acute Assessment and Plan: Wound assessed with wound care today. Wound vac not keeping a seal, so we will discontinue wound vac therapy and switch back to packing. Start silver gel dressing changes with gauze packing. MRI pelvis showed no evidence of osteomyelitis. WBC normal, wound healing well, afebrile. Okay from a surgical standpoint to [facility] the [facility] with wound care when okay with primary service. (2) Normocytic anemia: Code(s): D64.9 - Anemia, unspecified Status: Acute Plan I have discussed the patient's case and plan of care with Dr. Medina. Subjective Subjective Date/Time Seen: 09/24/22 14:10 Post Op day: 6 Interval history: Patient seen today with the wound care nurses for wound vac change. No acute changes overnight. Went for MRI pelvis this morning. Exam Const: General: no acute distress and alert Orientation/consciousness: patient oriented x3 Skin: Other: Wound vac dressing without a seal on the bottom and dressing coming off. Sacral ulcer healing well with granulation tissue forming. Small amount of yellow slough in one area of the wound bed but no purulent drainage or significant necrotic tissue. Objective Data Vital Signs Vital Signs: Vital Signs - 24 hr 09/23/22 19:32 09/24/22 00:00 09/24/22 03:25 Temperature 97.7 F 97.6 F 97.9 F Pulse Rate 69 66 69 Respiratory Rate 17 18 17 Blood Pressure 98/62 L 116/52 L 114/64 Pulse Oximetry 98 95 99 Oxygen Delivery 09/24/22 08:52 09/24/22 11:05 Temperature Pulse Rate 74 Respiratory Rate Blood Pressure Pulse Oximetry 93 Oxygen Delivery Room Air Intake/Output Intake/Output: Intake & Output 09/21/22 09/22/22 09/23/22 09/24/22 23:59 23:59 23:59 23:59 Intake Total 610 1540 4400 1340 Output Total 50 115 450 Balance 560 1425 4400 890 Meds/Results Medications: Active Medications Generic Name Dose Route Start Last Admin Trade Name Freq PRN Reason Stop Dose Admin Acetaminophen 650 mg 09/15/22 17:02 09/15/22 17:31 Acetaminophen 325 Mg Tablet PO 650 mg Q6H PRN Administration Mild Pain (1-3) or Fever Hydrocodone Bitart/Acetaminophen 1 tab 09/18/22 13:40 Hydrocodone/Acetaminophen (*Crx) 5-325 Mg Tablet PO Q4H PRN Pain Rated 4-6 Hydrocodone Bitart/Acetaminophen 1 tab 09/18/22 13:40 09/18/22 15:34 Hydrocodone/Acetaminophen (*Crx) 10-325 Mg Tablet PO 1 tab Q6H PRN Administration Pain Rated 7-10 Amoxicillin/Clavulanate Potassium 1 tablet 09/23/22 21:00 09/24/22 08:53 Amoxicillin/Clavulanate K 500-125 Mg Tab PO 10/02/22 23:59 1 tablet Q12HR JOSE G Administration Aspirin 81 mg 09/16/22 09:00 09/24/22 08:52 Aspirin 81 Mg Chewable Tablet PO 81 mg DAILY JOSE G Administration Atorvastatin Calcium 20 mg 09/16/22 09:00 09/24/22 08:52 Atorvastatin 20 Mg Tablet PO 20 mg DAILY JOSE G Administration Enoxaparin Sodium 40 mg 09/16/22 09:00 09/24/22 08:52 Enoxaparin 40 Mg/0.4 Ml Syringe SUB-Q 40 mg DAILY JOSE G Administration Gabapentin 300 mg 09/15/22 18:50 09/24/22 12:10 Gabapentin 300 Mg Capsule PO 300 mg TID JOSE G Administration Hydralazine HCl 25 mg 09/15/22 18:50 09/24/22 12:10 Hydralazine Hcl 25 Mg Tablet PO 25 mg TID JOSE G Administration Sodium Chloride 1,000 mls @ 125 mls/hr 09/22/22 08:00 09/24/22 09:11 Normal Saline Iv IV CONT 125 mls/hr .Q8H JOSE G Administration Metoprolol Succinate 25 mg 09/15/22 18:50 09/24/22 08:52 Metoprolol Succinate Ext Rel 25 Mg Tabcr PO 25 mg BID JOSE G Administration Morphine Sulfate 2 mg 09/18/22 13:40 Morphine Sulfate (*Crx) 2 Mg/Ml Inj IV PUSH Q2H PRN Pain Rated 4-6 Morphine Sulfate 4 mg 09/18/22 13:40 Morphine Sulfate (*Crx) 4 Mg/Ml Inj IV P
[2022-09-24] MEDS: TAMSULOSIN HCL 0.4 MG CAPSULE PO (20:54)
[2022-09-25] VITALS (8 sets, daily range): BP systolic 120–127; BP diastolic 62–88; PULSE 73–88; RESP 18; TEMP 35.9–36.6; O2SAT 96–100
[2022-09-25] MEDS: SODIUM CHLORIDE 0.9% IV 1,000 ML 125 ML IV CONT ×2 (06:12→18:13)
[2022-09-25 07:40] LABS: Hematocrit 25.7 % (42.0-52.0); Mean Corpuscular HGB Conc 27.6 g/dl (32-36); Mean Corpuscular Hemoglobin 26.2 pg (26-34); Mean Corpuscular Volume 94.8 fl (80-100); Mean Platelet Volume 10.8 fl (7.4-10.4); Platelet Count Result 240 k/mm3 (150-375); Red Blood Count 2.71 M/mm3 (4.6-6.20); Red Cell Distribution Width 19.1 % (11.5-14.5); White Blood Count 8.4 K/mm3 (4.5-10.0)
[2022-09-25 07:53] LABS: Hemoglobin 7.1 g/dL (14.0-18.0)
[2022-09-25 07:57] LABS: Anion Gap 3 mmol/L (8-16); Blood Urea Nitrogen 33 mg/dL (9-20); Calcium 7.7 mg/dL (8.4-10.2); Carbon Dioxide 19 mmol/L (22-30); Chloride 115 mmol/L (98-107); Estimated CRCL calculation 28 ml/min; Estimated Glomerular Filt Rate 24; Glucose 80 mg/dL (65-110); Magnesium 1.9 mg/dL (1.6-2.3); Sodium 137 mmol/L (137-145)
--- NOTE | 2022-09-25 09:30 | PCNFU ---
Nutrition Follow-Up Complete: Unintentional weight loss related to reduced appetite and intake as evidenced by pt report goal: Meet estimated needs Patient is progressing towards goal. We will continue current goal. Pt current nutrition is Heart Healthy. Last recorded weight is 109.1 kg. Bowel Motility:+BM reported 09/25 Labs Reviewed:Cr 2.6,GFR 24, BUN 33, Hct 25.7 Meds Noted:Lovenox,NS Skin: Unstageable R heel. Stage IV coccyx Additional Notes: Patient remains on a heart healthy diet, tolerating diet well. Diet supplement of Ensure providing an additional 220 kcals and 9 gms protein. Protein Modular of Prasanth BID for wound healing, providing an additional 90 kcals and 2.5 gms protein. Agree with diet orders. Monitor for diet order, intake, wt, labs, skin. Follow up in 7 days.
[2022-09-25] MEDS: ATORVASTATIN 20 MG TABLET PO (09:38)
[2022-09-25] MEDS: AMOXICILLIN/CLAVULANATE K 500-125 MG TAB 1 TABLET PO ×2 (09:38→20:47)
[2022-09-25] MEDS: GABAPENTIN 300 MG CAPSULE PO ×3 (09:38→17:12)
[2022-09-25] MEDS: ASPIRIN 81 MG CHEWABLE TABLET PO (09:38)
[2022-09-25] MEDS: hydrALAZINE HCL 25 MG TABLET PO ×3 (09:39→17:12)
[2022-09-25] MEDS: METOPROLOL SUCCINATE EXT REL 25 MG TABCR PO ×2 (09:39→17:12)
[2022-09-25] MEDS: SODIUM CHLORIDE 1 GM TABLET PO (09:39)
[2022-09-25] MEDS: SOD HYPOCHLORITE 1/4 STRENGTH 473 ML 1 APPLIC TOPICAL (09:40)
[2022-09-25] MEDS: SILVERGEL (ELTA) 45 ML 1 APPLIC TOPICAL (09:40)
[2022-09-25 11:13] LABS: Add Urine Microscopic? YES; Appearance Urine Cloudy (Clear); Bilirubin Urine Negative (Negative); Blood Urine Trace-Intact (Negative); Color Urine Light Yellow (Yellow); Glucose Urine UA Negative (Negative); Ketones Urine Trace mg/dL (Negative); Leukocyte Esterase Ur 1+ LEU/UL (NEGATIVE); Nitrate Urine Negative (Negative); Protein Urine 2+ mg/dL (Negative); Specific Grav Ur 1.025 (1.001-1.035); Urobilinogen Urine 0.2 mg/dL (<2.0); pH Urine 5.5 (5.0-9.0)
[2022-09-25 11:19] LABS: Amorphous Sediment Urine Few; Bacteria Urine Trace /hpf; Mucus Urine Rare /lpf; RBC Urine 21-50 /hpf (0-2); Squamous Epithelial Cell Urine Occasional /hpf (Few); WBC Urine >75 /hpf (0-3)
--- NOTE | 2022-09-25 17:56 | PM.IMPN ---
Progress Note: A&P Assessment and Plan (1) Decubitus ulcer of sacral area: Code(s): L89.159 - Pressure ulcer of sacral region, unspecified stage Status: Acute Assessment and Plan: Imaging shows a sacral decubitus ulcer to bone with findings concerning for osteomyelitis. For now he will be started on broad-spectrum antibiotics to include cefepime and vancomycin pending wound cultures. Dr. Medina has been consulted for probable debridement and his input is greatly appreciated. Wound nurse has been consulted to address other pressure ulcers. plan for wound VAC therapy 09/23/2022 interval history: 72-year-old male resident of [facility] sent to emergency department with worsening sacral ulcer and drainage, patient was seen by General surgery recommended patient will need debridement of the wound and suspect patient may have osteomyelitis, culture will be collected and patient is being treated with cefepime and vancomycin, surgery was scheduled for 09/17 however patient's hemoglobin was 7.1, and surgery was postponed, was given 1 unit of pack RBC and patient appears to have iron deficiency anemia gave 1 time dose of Venofer 300 mg, patient has mild hyponatremia will start the patient salt tablet, on 09/18 patient hemoglobin was 8.2 and patient had debridement of the wound, wound culture collected upon arrival is growing Proteus Mirabalis as well as one bottle is also the Proteus mirabilis, sensitive to ceftriaxone, another bottle is growing Peptoniphilus assacharolyticus, discussed with ID pharmacist, suspect most likely contamination, recommended to DC vancomycin continue IV Rocephin and further recommendation to follow, patient was seen by surgery service wound is healing, today patient had wound vac placed per surgeon, discussed with surgery service during the debridement did not notice any bone erosion suspicious for osteomyelitis however recommended to do the pelvic MRI to rule out osteomyelitis, pelvic MRI is ordered, will continue present management, will follow-up further recommendation to follow will have a PT OT evaluate the patient. : [facility] resident Worsening sacral ulcer and drainage Sacral decubitus ulcer with osteomyelitis on vancomycin cefepime debridement was planned however postponed due to anemia . Wound culture with Proteus mirabilis sensitive to ceftriaxone another bottle with Pepto only for less sec or lytic us which most likely contamination. Remains on IV Rocephin. Wound VAC placement planned status post debridement 09/18/2022. Pelvic MRI With no evidence of osteomyelitis but sacral decubitus ulcer but the ulcer extends nearly to the level of the bone at S5 level there is noted diffuse muscle edema about the pelvis and proximal hip which nonspecific finding. Seems like antibiotic has been switched to Augmentin until 10/02/2022 total 2 weeks Proteus mirabilis bacteremia sensitive to cefepime, swutched to augmentin for total 2 weeks course. Anemia acute on chronic. Evidence of iron deficiency. Received Venofer. Hyponatremia mild on salt tablet ULISSES baseline creatinine 0.8-1 creatinine bumped up to 2. Currently at 2.5 stable. urine output is not charted will add intake and output. Stop meloxicam. Bladder scan is negative. Are renal ultrasound with unremarkable left kidney a bladder right kidney not seen history of nephrectomy in the past Urine studies ordered evidence of UTI noted. 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 DVT prophylaxis on Lovenox with ongoing anemia will hold need to switch to heparin subQ (2) Osteomyelitis: Code(s): M86.9 - Osteomyelitis, unspecified Status: Acute Assessment and Plan: Plan is as detailed above. He will need long-term antibiotics. (3) Chron
[2022-09-25] MEDS: TAMSULOSIN HCL 0.4 MG CAPSULE PO (20:47)
[2022-09-26] VITALS (7 sets, daily range): BP systolic 106–128; BP diastolic 61–79; PULSE 73–89; RESP 14–20; TEMP 36.1; O2SAT 92–96
[2022-09-26 03:59] LABS: Creatinine Urine 107.4 mg/dL; Urea Random Urine 397 MG/DL
[2022-09-26 04:02] LABS: Sodium Urine Random 41 meq/L
[2022-09-26 04:49] LABS: Eosinophil Urine None Seen % (None Seen)
[2022-09-26 07:02] LABS: Basophils Percent Auto 0.5 % (0.2-1.2); Eosinophils Absolute Auto 0.6 K/mm3 (0-0.3); Eosinophils Percent Auto 7.4 % (0-4.4); Hematocrit 25.3 % (42.0-52.0); Hemoglobin 7.3 g/dL (14.0-18.0); Immature Granulocyte Absolute 0.16 K/mm3 (0.00-0.031); Immature Granulocyte Percent A 1.9 % (0-0.5); Lymphocytes Absolute Auto 1.17 K/mm3 (0.9-3.2); Mean Corpuscular HGB Conc 28.9 g/dl (32-36); Mean Corpuscular Hemoglobin 26.7 pg (26-34); Mean Corpuscular Volume 92.7 fl (80-100); Mean Platelet Volume 10.4 fl (7.4-10.4); Monocytes Absolute Auto 0.7 K/mm3 (0.1-0.6); Monocytes Percent Auto 8.5 % (2.6-8.5); Neutrophils Absolute Auto 5.7 K/mm3 (1.3-6.7); Neutrophils Percent Auto 67.7 % (45.5-73.1); Platelet Count Result 250 k/mm3 (150-375); Red Blood Count 2.73 M/mm3 (4.6-6.20); Red Cell Distribution Width 19.2 % (11.5-14.5); White Blood Count 8.4 K/mm3 (4.5-10.0)
[2022-09-26 07:17] LABS: Alanine Aminotransferase 60 U/L (6-50); Albumin Level 2.2 g/dL (3.5-5.1); Alkaline Phosphatase 80 U/L (38-126); Anion Gap 5 mmol/L (8-16); Aspartate Amino Transferase 27 U/L (17-59); Bilirubin,Total 0.5 mg/dL (0.2-1.3); Blood Urea Nitrogen 36 mg/dL (9-20); Calcium 7.9 mg/dL (8.4-10.2); Carbon Dioxide 18 mmol/L (22-30); Chloride 116 mmol/L (98-107); Estimated CRCL calculation 27 ml/min; Estimated Glomerular Filt Rate 23; Glucose 80 mg/dL (65-110); Magnesium 1.9 mg/dL (1.6-2.3); Potassium 4.1 mmol/L (3.4-5.0); Sodium 139 mmol/L (137-145)
[2022-09-26 08:54] LABS: Platelet Estimate Adequate (Adequate)
[2022-09-26 08:55] LABS: Burr Cells 1+ (NORMAL); Hypochromasia 1+ (NORMAL); Ovalocytes 1+ (NORMAL); Poikilocytosis 1+ (NORMAL); Schistocytes Rare (NORMAL); Tear Drop Cells 1+ (NORMAL)
[2022-09-26] MEDS: SODIUM CHLORIDE 1 GM TABLET PO (09:15)
[2022-09-26] MEDS: GABAPENTIN 300 MG CAPSULE PO ×3 (09:15→17:12)
[2022-09-26] MEDS: hydrALAZINE HCL 25 MG TABLET PO ×2 (09:15→17:10)
[2022-09-26] MEDS: ASPIRIN 81 MG CHEWABLE TABLET PO (09:15)
[2022-09-26] MEDS: ATORVASTATIN 20 MG TABLET PO (09:16)
[2022-09-26] MEDS: AMOXICILLIN/CLAVULANATE K 500-125 MG TAB 1 TABLET PO (09:16)
[2022-09-26] MEDS: METOPROLOL SUCCINATE EXT REL 25 MG TABCR PO ×2 (09:16→17:10)
[2022-09-26] MEDS: SILVERGEL (ELTA) 45 ML 1 APPLIC TOPICAL (09:21)
[2022-09-26] MEDS: SODIUM CHLORIDE 0.9% IV 1,000 ML 100 ML IV CONT (12:40)
--- NOTE | 2022-09-26 13:18 | PM.CNNEP ---
Assessment and Plan Assessment and plan (1) ULISSES (acute kidney injury): Code(s): N17.9 - Acute kidney failure, unspecified Status: Acute Assessment and Plan: normal creatinine at baseline suspect related to wound infection however, AIN is ppossible given multiple antibiotics in play/use renal ultrasound consistent with known history of solitary kidney (s/p right nephrectomy) check urine electrolytes, urine eoxinphils, and CPK does not look overtly dehydrated - consider trial of IVFs follow repeat labs and UOP (2) Decubitus ulcer of sacral area: Code(s): L89.159 - Pressure ulcer of sacral region, unspecified stage Status: Acute Assessment and Plan: as noted on admission concerns for osteomyelitis but imaging negative General Surgery and wound care following s/p debridement on antibiotic therapy (3) Hypertension: Code(s): I10 - Essential (primary) hypertension Status: Chronic Assessment and Plan: reasonable control at this time follow trend of hemodynamics (4) Normocytic anemia: Code(s): D64.9 - Anemia, unspecified Status: Acute Assessment and Plan: s/p PRBC transfusion suspect due to extensive wounds UILSSES may be contributing consider OBDULIA therapy while hospitalized (5) Physical debility: Code(s): R53.81 - Other malaise Status: Acute Assessment and Plan: seems soemwhat bed-bound PT/OT as tolerated Will continue to follow. History of Present Illness Reason for Consult Consult date: 09/26/22 Reason for consult: acute renal failure Chief Complaint Chief complaint: Decubitus Ulcer History of Present Illness Narrative: The patient is a 72-year-old male with a past medical history as outlined below who presented from his nursing facility for further evaluation of extensive sacral wounds that appear to be worsening in appearance. He was actually admitted about a week ago for this issue and has been receiving ongoing treatment for his sacral decubitus ulcers including debridement, aggressive wound care, optimization of nutrition, and IV antibiotic therapy. He has had some issues and problems with anemia requiring a packed red blood cell transfusion any remains on broad-spectrum IV antibiotic therapy based on wound cultures. On admission, his renal function was well within normal limits but then more recently in the last 24-48 hours, his renal function has started to decline. There are no associated laboratory abnormalities and his volume status appears to be stable but it is somewhat concerning that his renal function continues to deteriorate despite conservative therapy. Renal consultation was requested due to his acute kidney injury/ acute renal failure. As already mentioned above, his renal function was well within normal limits on admission. It subsequently then justino to 1.6, then up to 2.0 mg/dL, then 2.5, and on recent a.m. labs 2.7 mg/dL. In spite of this change in his renal function, he does not appear to be symptomatic with regard to this issue. It should be noted that he is on broad-spectrum IV antibiotic therapy for his sacral decubitus wounds and as far as I am aware, he has not had any recent contrast exposure but his urinalysis is somewhat suggestive of a urinary tract infection. Currently, at the time my visit, he appears in no acute distress. Review of Systems Review of Systems: As per HPI. [facility] Past Medical History Medical History (Updated 09/29/22 @ 02:35 by Ernestina Farrell MD) Chronic anticoagulation Coronary artery disease Essential hypertension History of tobacco abuse Hyperlipemia Hypertension Obstructive sleep apnea Stroke (2006) Residual left-sided weakness. Surgical History Surgical History (Updated 09/15/22 @ 18:14 by Pilar Nava PA-C) History of arthroplasty of right knee History of cardiac catheterization History of colonoscopy History of
[2022-09-26] MEDS: APIXABAN 5 MG TABLET PO (18:37)
[2022-09-26] MEDS: TAMSULOSIN HCL 0.4 MG CAPSULE PO (21:00)
[2022-09-27] MEDS: AMOXICILLIN/CLAVULANATE K 500-125 MG TAB 1 TABLET PO ×2 (00:55→08:39)
[2022-09-27 05:41] VITALS: BP 113/60; PULSE 82; RESP 14; TEMP 36.6; O2SAT 92
[2022-09-27 07:57] LABS: Basophils Percent Auto 0.5 % (0.2-1.2); Eosinophils Absolute Auto 0.7 K/mm3 (0-0.3); Eosinophils Percent Auto 7.6 % (0-4.4); Hematocrit 26.8 % (42.0-52.0); Hemoglobin 7.6 g/dL (14.0-18.0); Immature Granulocyte Absolute 0.18 K/mm3 (0.00-0.031); Immature Granulocyte Percent A 2.1 % (0-0.5); Lymphocytes Absolute Auto 1.08 K/mm3 (0.9-3.2); Lymphocytes Percent Auto 12.5 % (18.3-44.2); Mean Corpuscular HGB Conc 28.4 g/dl (32-36); Mean Corpuscular Hemoglobin 26.8 pg (26-34); Mean Corpuscular Volume 94.4 fl (80-100); Mean Platelet Volume 10.1 fl (7.4-10.4); Monocytes Absolute Auto 0.7 K/mm3 (0.1-0.6); Neutrophils Percent Auto 69.3 % (45.5-73.1); Platelet Count Result 223 k/mm3 (150-375); Red Blood Count 2.84 M/mm3 (4.6-6.20); Red Cell Distribution Width 19.7 % (11.5-14.5); White Blood Count 8.6 K/mm3 (4.5-10.0)
[2022-09-27 08:12] LABS: Alanine Aminotransferase 48 U/L (6-50); Albumin Level 2.2 g/dL (3.5-5.1); Alkaline Phosphatase 83 U/L (38-126); Anion Gap 1 mmol/L (8-16); Aspartate Amino Transferase 28 U/L (17-59); Bilirubin,Total 0.5 mg/dL (0.2-1.3); Blood Urea Nitrogen 38 mg/dL (9-20); Calcium 8.2 mg/dL (8.4-10.2); Carbon Dioxide 21 mmol/L (22-30); Chloride 115 mmol/L (98-107); Estimated CRCL calculation 26 ml/min; Estimated Glomerular Filt Rate 22; Glucose 80 mg/dL (65-110); Potassium 4.4 mmol/L (3.4-5.0); Sodium 137 mmol/L (137-145)
[2022-09-27] MEDS: hydrALAZINE HCL 25 MG TABLET PO ×3 (08:38→17:09)
[2022-09-27] MEDS: SODIUM CHLORIDE 1 GM TABLET PO (08:39)
[2022-09-27] MEDS: APIXABAN 5 MG TABLET PO (08:39)
[2022-09-27] MEDS: GABAPENTIN 300 MG CAPSULE PO ×3 (08:39→17:09)
[2022-09-27] MEDS: ASPIRIN 81 MG CHEWABLE TABLET PO (08:39)
[2022-09-27] MEDS: SILVERGEL (ELTA) 45 ML 1 APPLIC TOPICAL (08:39)
[2022-09-27 08:40] VITALS: PULSE 84
[2022-09-27] MEDS: METOPROLOL SUCCINATE EXT REL 25 MG TABCR PO ×2 (08:40→17:10)
[2022-09-27] MEDS: ATORVASTATIN 20 MG TABLET PO (08:40)
[2022-09-27 09:10] LABS: Creatinine Urine 98.6 mg/dL; Total Protein Urine Random 98 mg/dL; Ur Ttl Prot Creatinine Ratio 0.99 mg/mg (0-0.20)
[2022-09-27 09:12] LABS: Sodium Urine Random 60 meq/L
[2022-09-27 09:18] LABS: Platelet Estimate Adequate (Adequate)
[2022-09-27 09:19] LABS: Anisocytosis 1+ (NORMAL); Ovalocytes 1+ (NORMAL); Poikilocytosis 1+ (NORMAL)
[2022-09-27 09:20] LABS: Acanthocytes 1+ (NORMAL); Schistocytes Rare (NORMAL); Tear Drop Cells 1+ (NORMAL)
[2022-09-27 10:26] LABS: Eosinophil Urine 4 % (None Seen)
--- NOTE | 2022-09-27 10:47 | P.PNNP_ITS ---
Progress Note: A&P Assessment and Plan (1) ULISESS (acute kidney injury): Code(s): N17.9 - Acute kidney failure, unspecified Status: Acute Assessment and Plan: * normal creatinine at baseline * suspect related to wound infection * however, AIN is possible given multiple antibiotics in play/use * evaluation to date: * urine electrolytes slightly pre-renal * renal ultrasound consistent with known history of solitary kidney (s/p right nephrectomy) * urine eosinophils negative * CPK okay * continue supporrive therapy * follow repeat labs and UOP (2) Decubitus ulcer of sacral area: Code(s): L89.159 - Pressure ulcer of sacral region, unspecified stage Status: Acute Assessment and Plan: * as noted on admission * concerns for osteomyelitis but imaging negative * General Surgery and wound care following * s/p debridement * on antibiotic therapy (3) Hypertension: Code(s): I10 - Essential (primary) hypertension Status: Chronic Assessment and Plan: * reasonable control at this time * follow trend of hemodynamics (4) Normocytic anemia: Code(s): D64.9 - Anemia, unspecified Status: Acute Assessment and Plan: * s/p PRBC transfusion * suspect due to extensive wounds * ULISSES may be contributing * consider OBDULIA therapy while hospitalized (5) Physical debility: Code(s): R53.81 - Other malaise Status: Acute Assessment and Plan: * seems soemwhat bed-bound * PT/OT as tolerated Will continue to follow. Subjective Date/time seen: 09/27/22 10:47 No apparent distress voiced at the time of my visit; no real significant change noted although he seems that he has increased work of breathing but denies any shortness of breath. Exam Narrative: General: WD/WN elderly male in NAD Heart: normal S1 and S2; no rub Lungs: decreased at bases Abdomen: soft, nontender, nondistended, positive bowel sounds Extremities: no cyanosis or clubbing; trace - 1+ edema Skin: warm and dry Objective Data Vital Signs Vital Signs: Vital Signs Temp Pulse Resp BP Pulse Ox O2 Del Method 09/27/22 08:40 Room Air 09/27/22 08:40 84 09/27/22 05:41 97.9 F 82 14 113/60 92 09/26/22 21:57 96.9 F L 75 14 121/69 93 09/26/22 20:00 78 17 96 Room Air 09/26/22 15:03 96.9 F L 89 17 106/61 96 09/26/22 17:10 78 Intake/Output Intake/Output: Intake & Output 09/24/22 09/25/22 09/26/22 09/27/22 23:59 23:59 23:59 23:59 Intake Total 2540 2270 1910 740 Output Total 450 515 650 550 Balance 2090 1755 1260 190 Meds/Results Medications: Active Medications Generic Name Dose Route Start Last Admin Trade Name Freq PRN Reason Stop Dose Admin Acetaminophen 650 mg 09/15/22 17:02 09/15/22 17:31 Acetaminophen 325 Mg Tablet PO 650 mg Q6H PRN Administration Mild Pain (1-3) or Fever Hydrocodone Bitart/Acetaminophen 1 tab 09/18/22 13:40 Hydrocodone/Acetaminophen (*Crx) 5-325 Mg Tablet PO Q4H PRN Pain Rated 4-6 Hydrocodone Bitart/Acetaminophen 1 tab 09/18/22 13:40
--- NOTE | 2022-09-27 10:47 | PM.PNNEP ---
Progress Note: A&P Assessment and Plan (1) ULISSES (acute kidney injury): Code(s): N17.9 - Acute kidney failure, unspecified Status: Acute Assessment and Plan: normal creatinine at baseline suspect related to wound infection however, AIN is possible given multiple antibiotics in play/use evaluation to date: urine electrolytes slightly pre-renal renal ultrasound consistent with known history of solitary kidney (s/p right nephrectomy) urine eosinophils negative CPK okay continue supporrive therapy follow repeat labs and UOP (2) Decubitus ulcer of sacral area: Code(s): L89.159 - Pressure ulcer of sacral region, unspecified stage Status: Acute Assessment and Plan: as noted on admission concerns for osteomyelitis but imaging negative General Surgery and wound care following s/p debridement on antibiotic therapy (3) Hypertension: Code(s): I10 - Essential (primary) hypertension Status: Chronic Assessment and Plan: reasonable control at this time follow trend of hemodynamics (4) Normocytic anemia: Code(s): D64.9 - Anemia, unspecified Status: Acute Assessment and Plan: s/p PRBC transfusion suspect due to extensive wounds ULISSES may be contributing consider OBDULIA therapy while hospitalized (5) Physical debility: Code(s): R53.81 - Other malaise Status: Acute Assessment and Plan: seems soemwhat bed-bound PT/OT as tolerated Will continue to follow. Subjective Date/time seen: 09/27/22 10:47 No apparent distress voiced at the time of my visit; no real significant change noted although he seems that he has increased work of breathing but denies any shortness of breath. Exam Narrative: General: WD/WN elderly male in NAD Heart: normal S1 and S2; no rub Lungs: decreased at bases Abdomen: soft, nontender, nondistended, positive bowel sounds Extremities: no cyanosis or clubbing; trace - 1+ edema Skin: warm and dry Objective Data Vital Signs Vital Signs: Vital Signs Temp Pulse Resp BP Pulse Ox O2 Del Method 09/27/22 08:40 Room Air 09/27/22 08:40 84 09/27/22 05:41 97.9 F 82 14 113/60 92 09/26/22 21:57 96.9 F L 75 14 121/69 93 09/26/22 20:00 78 17 96 Room Air 09/26/22 15:03 96.9 F L 89 17 106/61 96 09/26/22 17:10 78 Intake/Output Intake/Output: Intake & Output 09/24/22 09/25/22 09/26/22 09/27/22 23:59 23:59 23:59 23:59 Intake Total 2540 2270 1910 740 Output Total 450 515 650 550 Balance 2090 1755 1260 190 Meds/Results Medications: Active Medications Generic Name Dose Route Start Last Admin Trade Name Freq PRN Reason Stop Dose Admin Acetaminophen 650 mg 09/15/22 17:02 09/15/22 17:31 Acetaminophen 325 Mg Tablet PO 650 mg Q6H PRN Administration Mild Pain (1-3) or Fever Hydrocodone Bitart/Acetaminophen 1 tab 09/18/22 13:40 Hydrocodone/Acetaminophen (*Crx) 5-325 Mg Tablet PO Q4H PRN Pain Rated 4-6 Hydrocodone Bitart/Acetaminophen 1 tab 09/18/22 13:40 09/18/22 15:34 Hydrocodone/Acetaminophen (*Crx) 10-325 Mg Tablet PO 1 tab Q6H PRN Administration Pain Rated 7-10 Apixaban 5 mg 09/26/22 17:00 09/27/22 08:39 Apixaban 5 Mg Tablet PO 5 mg BID JOSE G Administration Aspirin 81 mg 09/16/22 09:00 09/27/22 08:39 Aspirin 81 Mg Chewable Tablet PO 81 mg DAILY JOSE G Administration Atorvastatin Calcium 20 mg 09/16/22 09:00 09/27/22 08:40 Atorvastatin 20 Mg Tablet PO 20 mg DAILY JOSE G Administration Gabapentin 300 mg 09/15/22 18:50 09/27/22 12:40 Gabapentin 300 Mg Capsule PO 300 mg TID JOSE G Administration Hydralazine HCl 25 mg 09/15/22 18:50 09/27/22 12:40 Hydralazine Hcl 25 Mg Tablet PO 25 mg TID JOSE G Administration Cefepime HCl 1 gm in 50 mls @ 100 mls/hr 09/27/22 13:00 Maxipime 1 Gm/D5w 50 Ml IVPB Q24H JOSE G Vancomyc
--- NOTE | 2022-09-27 12:31 | P.PNIM_ITS ---
Progress Note: A&P Assessment and Plan (1) Decubitus ulcer of sacral area: Code(s): L89.159 - Pressure ulcer of sacral region, unspecified stage Status: Acute Assessment and Plan: Imaging shows a sacral decubitus ulcer to bone with findings concerning for osteomyelitis. For now he will be started on broad-spectrum antibiotics to include cefepime and vancomycin pending wound cultures. Dr. Medina has been c onsulted for probable debridement and his input is greatly appreciated. Wound nurse has been consulted to address other pressure ulcers. plan for wound VAC therapy 09/23/2022 interval history: 72-year-[facility] department with worsening sacral ulcer and drainage, patient was seen by General surgery recommended patient will need debridement of the wound and suspect patient may have osteomyelitis, culture will be collected and patient is being treated with cefepime and vancomycin, surgery was scheduled for 09/17 however patient's hemoglobin was 7.1, and surgery was postponed, was given 1 unit of pack RBC and patient appears to have iron deficiency anemia gave 1 time dose of Venofer 300 mg, patient has mild hyponatremia will start the patient salt tablet, on 09/18 patient hemoglobin was 8.2 and patient had debridement of the wound, wound culture collected upon arrival is growing Proteus Mirabalis as well as one bottle is also the Proteus mirabilis, sensitive to ceftriaxone, another bottle is growing Peptoniphilus assacharolyticus, discussed with ID pharmacist, suspect most likely contamination, recommended to DC vancomycin continue IV Rocephin and further recommendation to follow, patient was seen by surgery service wound is healing, today patient had wound vac placed per surgeon, discussed with surgery service during the debridement did not notice any bone erosion suspicious for osteomyelitis however recommended to do the pelvic MRI to rule out osteomyelitis, pelvic MRI is ordered, will continue present management, will follow-up further recommendation to follow will have a PT OT evaluate the patient. : [facility]idential resident Worsening sacral ulcer and drainage Sacral decubitus ulcer with osteomyelitis on vancomycin cefepime debridement was planned however postponed due to anemia . Wound culture with Proteus mirabilis sensitive to ceftriaxone another bottle with Pepto only for less sec or lytic us which most likely contamination. Remains on IV Rocephin. Wound VAC placement planned status post debridement 09/18/2022. Pelvic MRI With no evidence of osteomyelitis but sacral decubitus ulcer but the ulcer extends nearly to the level of the bone at S5 level there is noted diffuse muscle edema about the pelvis and proximal hip which nonspecific finding. Seems like antibiotic has been switched to Augmentin until 10/02/2022 total 2 weeks Proteus mirabilis bacteremia sensitive to cefepime, switched to augmentin for total 2 weeks course. Anemia acute on chronic. Evidence of iron deficiency. Received Venofer. Hyponatremia mild on salt tablet ULISSES baseline creatinine 0.8-1 creatinine bumped up to 2. Currently at 2.5 stable. urine output is not charted will add intake and output. Stop meloxicam. Bladder scan is negative. Are renal ultrasound with unremarkable left kidney a bladder right kidney not seen history of nephrectomy in the past Urine studies ordered evidence of UTI noted. 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 DVT prophylaxis on Lovenox with ongoing anemia will hold need to switch to hepari
[2022-09-27 13:41] LABS: NT Pro B Type Natriuretic Pept 2480 pg/mL (5-100)
[2022-09-27 16:30] VITALS: BP 118/64; PULSE 77; RESP 16; TEMP 35.9; O2SAT 93
[2022-09-27 16:39] LABS: Vancomycin Random 19.1 ug/mL (10-20)
[2022-09-27] MEDS: metroNIDAZOLE 500 MG/ISO 100ML 500 MG/100 ML BAG 100 MG IVPB (17:07)
[2022-09-27 17:10] VITALS: PULSE 68
[2022-09-27 20:00] VITALS: PULSE 68; RESP 16; O2SAT 93
[2022-09-27] MEDS: TAMSULOSIN HCL 0.4 MG CAPSULE PO (20:49)
[2022-09-27 21:55] VITALS: BP 127/73; PULSE 80; RESP 13; TEMP 36.6; O2SAT 95
[2022-09-28] MEDS: metroNIDAZOLE 500 MG/ISO 100ML 500 MG/100 ML BAG 100 MG IVPB ×4 (00:10→17:34)
[2022-09-28 05:51] VITALS: BP 123/69; PULSE 74; RESP 14; TEMP 36.6; O2SAT 93
[2022-09-28 08:19] LABS: INR 1.6; Prothrombin Time 18.2 Seconds (11.1-14.7)
[2022-09-28 08:20] LABS: Partial Thromboplastin Time 43.2 SECONDS (22.3-36.8)
[2022-09-28 08:42] LABS: Basophils Absolute Auto 0.1 K/mm3 (0.0-0.1); Basophils Percent Auto 0.7 % (0.2-1.2); Eosinophils Absolute Auto 0.7 K/mm3 (0-0.3); Hematocrit 25.2 % (42.0-52.0); Hemoglobin 7.2 g/dL (14.0-18.0); Immature Granulocyte Absolute 0.14 K/mm3 (0.00-0.031); Immature Granulocyte Percent A 1.9 % (0-0.5); Lymphocytes Absolute Auto 0.97 K/mm3 (0.9-3.2); Lymphocytes Percent Auto 13.4 % (18.3-44.2); Mean Corpuscular HGB Conc 28.6 g/dl (32-36); Mean Corpuscular Hemoglobin 26.9 pg (26-34); Mean Platelet Volume 10.7 fl (7.4-10.4); Monocytes Absolute Auto 0.6 K/mm3 (0.1-0.6); Monocytes Percent Auto 7.9 % (2.6-8.5); Neutrophils Absolute Auto 4.9 K/mm3 (1.3-6.7); Neutrophils Percent Auto 67.1 % (45.5-73.1); Platelet Count Result 216 k/mm3 (150-375); Red Blood Count 2.68 M/mm3 (4.6-6.20); Red Cell Distribution Width 19.7 % (11.5-14.5); White Blood Count 7.3 K/mm3 (4.5-10.0)
[2022-09-28 08:55] LABS: Alanine Aminotransferase 42 U/L (6-50); Alkaline Phosphatase 86 U/L (38-126); Anion Gap 3 mmol/L (8-16); Aspartate Amino Transferase 21 U/L (17-59); Bilirubin,Total 0.5 mg/dL (0.2-1.3); Blood Urea Nitrogen 44 mg/dL (9-20); Calcium 8.2 mg/dL (8.4-10.2); Carbon Dioxide 19 mmol/L (22-30); Chloride 118 mmol/L (98-107); Creatine Kinase 27 U/L (55-170); Estimated CRCL calculation 28 ml/min; Estimated Glomerular Filt Rate 24; Glucose 80 mg/dL (65-110); Magnesium 1.9 mg/dL (1.6-2.3); Potassium 4.5 mmol/L (3.4-5.0); Sodium 140 mmol/L (137-145)
[2022-09-28 09:25] LABS: Platelet Estimate Adequate (Adequate)
[2022-09-28 09:26] LABS: Anisocytosis 1+ (NORMAL); Hypochromasia 1+ (NORMAL); Poikilocytosis 1+ (NORMAL)
[2022-09-28 09:27] LABS: Burr Cells 1+ (NORMAL); Ovalocytes 1+ (NORMAL); Schistocytes Rare (NORMAL); Tear Drop Cells 1+ (NORMAL)
[2022-09-28] MEDS: SILVERGEL (ELTA) 45 ML 1 APPLIC TOPICAL (10:32)
[2022-09-28 11:47] VITALS: PULSE 88
[2022-09-28] MEDS: GABAPENTIN 300 MG CAPSULE PO ×3 (11:47→21:38)
[2022-09-28] MEDS: hydrALAZINE HCL 25 MG TABLET PO ×3 (11:47→21:39)
[2022-09-28] MEDS: METOPROLOL SUCCINATE EXT REL 25 MG TABCR PO ×2 (11:47→21:39)
--- NOTE | 2022-09-28 12:51 | PM.IMPN ---
Progress Note: A&P Assessment and Plan (1) Decubitus ulcer of sacral area: Code(s): L89.159 - Pressure ulcer of sacral region, unspecified stage Status: Acute Assessment and Plan: Imaging shows a sacral decubitus ulcer to bone with findings concerning for osteomyelitis. For now he will be started on broad-spectrum antibiotics to include cefepime and vancomycin pending wound cultures. Dr. Medina has been consulted for probable debridement and his input is greatly appreciated. Wound nurse has been consulted to address other pressure ulcers. plan for wound VAC therapy 09/23/2022 interval history: 72-year-old male resident of residential sent to emergency department with worsening sacral ulcer and drainage, patient was seen by General surgery recommended patient will need debridement of the wound and suspect patient may have osteomyelitis, culture will be collected and patient is being treated with cefepime and vancomycin, surgery was scheduled for 09/17 however patient's hemoglobin was 7.1, and surgery was postponed, was given 1 unit of pack RBC and patient appears to have iron deficiency anemia gave 1 time dose of Venofer 300 mg, patient has mild hyponatremia will start the patient salt tablet, on 09/18 patient hemoglobin was 8.2 and patient had debridement of the wound, wound culture collected upon arrival is growing Proteus Mirabalis as well as one bottle is also the Proteus mirabilis, sensitive to ceftriaxone, another bottle is growing Peptoniphilus assacharolyticus, discussed with ID pharmacist, suspect most likely contamination, recommended to DC vancomycin continue IV Rocephin and further recommendation to follow, patient was seen by surgery service wound is healing, today patient had wound vac placed per surgeon, discussed with surgery service during the debridement did not notice any bone erosion suspicious for osteomyelitis however recommended to do the pelvic MRI to rule out osteomyelitis, pelvic MRI is ordered, will continue present management, will follow-up further recommendation to follow will have a PT OT evaluate the patient. 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 Wound culture with Proteus mirabilis sensitive to ceftriaxone another bottle with Pepto only for less sec or lytic us which most likely contamination. Remains on IV Rocephin. Wound VAC placement planned status post debridement 09/18/2022. Pelvic MRI With no evidence of osteomyelitis but sacral decubitus ulcer but the ulcer extends nearly to the level of the bone at S5 level there is noted diffuse muscle edema about the pelvis and proximal hip which nonspecific finding. Seems like antibiotic has been switched to Augmentin until 10/02/2022 total 2 weeks Proteus mirabilis bacteremia sensitive to cefepime, switched to augmentin for total 2 weeks course. Anemia acute on chronic. Evidence of iron deficiency. Received Venofer. Hyponatremia mild on salt tablet ULISSES baseline creatinine 0.8-1 creatinine bumped up to 2. Currently at 2.5 stable. urine output is not charted will add intake and output. Stop meloxicam. Bladder scan is negative. Are renal ultrasound with unremarkable left kidney a bladder right kidney not seen history of nephrectomy in the past Urine studies ordered evidence of UTI noted. 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 DVT prophylaxis on Lovenox with ongoing anemia will hold need to switch to heparin subQ (2) Osteomyelitis: Code(s): M86.9 - Osteomyelitis, unspecified Status: Acute Assessment and Plan: Plan is as detailed above. He will need long-term antibiotics. (3) Chron
--- NOTE | 2022-09-28 14:43 | PM.PNNEP ---
Progress Note: A&P Assessment and Plan (1) ULISSES (acute kidney injury): Code(s): N17.9 - Acute kidney failure, unspecified Status: Acute Assessment and Plan: about the same if not mild improvement normal creatinine at baseline suspect related to wound infection and possibly pneumonia however, AIN is possible given multiple antibiotics in play/use evaluation to date: urine electrolytes slightly pre-renal renal ultrasound consistent with known history of solitary kidney (s/p right nephrectomy) urine eosinophils negative CPK okay continue supporrive therapy follow repeat labs and UOP (2) Decubitus ulcer of sacral area: Code(s): L89.159 - Pressure ulcer of sacral region, unspecified stage Status: Acute Assessment and Plan: as noted on admission concerns for osteomyelitis but imaging negative General Surgery and wound care following s/p debridement on antibiotic therapy (3) Hypertension: Code(s): I10 - Essential (primary) hypertension Status: Chronic Assessment and Plan: reasonable control at this time follow trend of hemodynamics (4) Normocytic anemia: Code(s): D64.9 - Anemia, unspecified Status: Acute Assessment and Plan: s/p PRBC transfusion suspect due to extensive wounds ULISSES may be contributing consider OBDULIA therapy while hospitalized (5) Physical debility: Code(s): R53.81 - Other malaise Status: Acute Assessment and Plan: seems soemwhat bed-bound PT/OT as tolerated Will continue to follow. Subjective Date/time seen: 09/28/22 14:43 No acute complaints voiced at the time of my visit; antibiotics adjusted yesterday due to concerns for pneumonia (possibly aspiration) given increased work of breathing but he still denies acute shortness of breath; noted plans for thoracentesis due to findings of moderate right pleural effusion by CT scan yesterday; no apparent distress noted. Exam Narrative: General: WD/WN elderly male in NAD Heart: normal S1 and S2; no rub Lungs: decreased at bases Abdomen: soft, nontender, nondistended, positive bowel sounds Extremities: no cyanosis or clubbing; trace - 1+ edema Skin: warm and intact Objective Data Vital Signs Vital Signs: Vital Signs Temp Pulse Resp BP Pulse Ox O2 Del Method 09/28/22 10:30 Room Air 09/28/22 11:47 88 09/28/22 05:51 97.8 F 74 14 123/69 93 09/27/22 21:55 97.8 F 80 13 127/73 95 09/27/22 20:00 68 16 93 Room Air Intake/Output Intake/Output: Intake & Output 09/25/22 09/26/22 09/27/22 09/28/22 23:59 23:59 23:59 23:59 Intake Total 2270 1910 2030 940 Output Total 515 650 825 940 Balance 1755 1260 1205 0 Meds/Results Medications: Active Medications Generic Name Dose Route Start Last Admin Trade Name Freq PRN Reason Stop Dose Admin Acetaminophen 650 mg 09/15/22 17:02 09/15/22 17:31 Acetaminophen 325 Mg Tablet PO 650 mg Q6H PRN Administration Mild Pain (1-3) or Fever Apixaban 5 mg 09/26/22 17:00 09/27/22 08:39 Apixaban 5 Mg Tablet PO 5 mg BID JOSE G Administration Aspirin 81 mg 09/16/22 09:00 09/27/22 08:39 Aspirin 81 Mg Chewable Tablet PO 81 mg DAILY JOSE G Administration Atorvastatin Calcium 20 mg 09/16/22 09:00 09/27/22 08:40 Atorvastatin 20 Mg Tablet PO 20 mg DAILY JOSE G Administration Gabapentin 300 mg 09/15/22 18:50 09/28/22 11:47 Gabapentin 300 Mg Capsule PO 300 mg TID JOSE G Administration Hydralazine HCl 25 mg 09/15/22 18:50 09/28/22 11:47 Hydralazine Hcl 25 Mg Tablet PO 25 mg TID JOSE G Administration Cefepime HCl 1 gm in 50 mls @ 100 mls/hr 09/27/22 13:00 09/28/22 15:37 Maxipime 1 Gm/D5w 50 Ml IVPB 100 mls/hr Q24H JOSE G Administration Vancomycin HCl 1,500 mg in 500 mls @ 333.333 mls/hr 09/27/22 13:13 Vancomycin 1,500 Mg/D5w 500 Ml IVPB PRN PRN Kinetics Consult
--- NOTE | 2022-09-28 14:43 | P.PNNP_ITS ---
Progress Note: A&P Assessment and Plan (1) ULISSES (acute kidney injury): Code(s): N17.9 - Acute kidney failure, unspecified Status: Acute Assessment and Plan: * about the same if not mild improvement * normal creatinine at baseline * suspect related to wound infection and possibly pneumonia * however, AIN is possible given multiple antibiotics in play/use * evaluation to date: * urine electrolytes slightly pre-renal * renal ultrasound consistent with known history of solitary kidney (s/p right nephrectomy) * urine eosinophils negative * CPK okay * continue supporrive therapy * follow repeat labs and UOP (2) Decubitus ulcer of sacral area: Code(s): L89.159 - Pressure ulcer of sacral region, unspecified stage Status: Acute Assessment and Plan: * as noted on admission * concerns for osteomyelitis but imaging negative * General Surgery and wound care following * s/p debridement * on antibiotic therapy (3) Hypertension: Code(s): I10 - Essential (primary) hypertension Status: Chronic Assessment and Plan: * reasonable control at this time * follow trend of hemodynamics (4) Normocytic anemia: Code(s): D64.9 - Anemia, unspecified Status: Acute Assessment and Plan: * s/p PRBC transfusion * suspect due to extensive wounds * ULISSES may be contributing * consider OBDULIA therapy while hospitalized (5) Physical debility: Code(s): R53.81 - Other malaise Status: Acute Assessment and Plan: * seems soemwhat bed-bound * PT/OT as tolerated Will continue to follow. Subjective Date/time seen: 09/28/22 14:43 No acute complaints voiced at the time of my visit; antibiotics adjusted yesterday due to concerns for pneumonia (possibly aspiration) given increased work of breathing but he still denies acute shortness of breath; noted plans for thoracentesis due to findings of moderate right pleural effusion by CT scan yesterday; no apparent distress noted. Exam Narrative: General: WD/WN elderly male in NAD Heart: normal S1 and S2; no rub Lungs: decreased at bases Abdomen: soft, nontender, nondistended, positive bowel sounds Extremities: no cyanosis or clubbing; trace - 1+ edema Skin: warm and intact Objective Data Vital Signs Vital Signs: Vital Signs Temp Pulse Resp BP Pulse Ox O2 Del Method 09/28/22 10:30 Room Air 09/28/22 11:47 88 09/28/22 05:51 97.8 F 74 14 123/69 93 09/27/22 21:55 97.8 F 80 13 127/73 95 09/27/22 20:00 68 16 93 Room Air Intake/Output Intake/Output: Intake & Output 09/25/22 09/26/22 09/27/22 09/28/22 23:59 23:59 23:59 23:59 Intake Total 2270 1910 2030 940 Output Total 515 650 825 940 Balance 1755 1260 1205 0 Meds/Results Medications: Active Medications Generic Name Dose Route Start Last Admin Trade Name Freq PRN Reason Stop Dose Admin Acetaminophen 650 mg 09/15/22 17:02 09/15/22 17:31 Acetaminophen 325 Mg Tablet PO 650 mg Q6H PRN Administration Mild Pain (1-3) or Fever Apixaban 5 mg 09/26/22 17:00 09/27/22 08:39 Apixaban 5 Mg Tablet PO 5 mg BID
[2022-09-28 15:22] LABS: pH Pleural Fluid 7.424 (7.210-7.500)
[2022-09-28] MEDS: ASPIRIN 81 MG CHEWABLE TABLET PO (17:35)
[2022-09-28] MEDS: ATORVASTATIN 20 MG TABLET PO (17:35)
[2022-09-28] MEDS: SODIUM CHLORIDE 1 GM TABLET PO (17:35)
[2022-09-28 18:31] LABS: Appearance Pleural Fluid Hazy (Clear); Color Pleural Fluid Yellow (Colorless); Lymphocytes Pleural Fluid 66 %; Macrophages Pleural Fluid 3 %; Monocytes Pleural Fluid 7 %; Neutrophils Pleural Fluid 24 % (0-25); Pleural fluid source Pleural fluid
[2022-09-28 20:00] VITALS: PULSE 80; RESP 14; O2SAT 93
[2022-09-28 21:39] VITALS: PULSE 80
[2022-09-28] MEDS: TAMSULOSIN HCL 0.4 MG CAPSULE PO (21:40)
[2022-09-28 22:00] VITALS: BP 114/62; PULSE 86; RESP 18; TEMP 36.3; O2SAT 94
[2022-09-29] MEDS: metroNIDAZOLE 500 MG/ISO 100ML 500 MG/100 ML BAG 100 MG IVPB ×4 (02:33→18:14)
[2022-09-29 06:00] VITALS: BP 139/83; PULSE 78; RESP 22; TEMP 36.3; O2SAT 93
[2022-09-29 06:47] LABS: Basophils Absolute Auto 0.1 K/mm3 (0.0-0.1); Basophils Percent Auto 0.7 % (0.2-1.2); Eosinophils Absolute Auto 0.6 K/mm3 (0-0.3); Eosinophils Percent Auto 8.5 % (0-4.4); Hematocrit 26.3 % (42.0-52.0); Hemoglobin 7.6 g/dL (14.0-18.0); Immature Granulocyte Absolute 0.14 K/mm3 (0.00-0.031); Immature Granulocyte Percent A 1.9 % (0-0.5); Lymphocytes Absolute Auto 0.99 K/mm3 (0.9-3.2); Lymphocytes Percent Auto 13.1 % (18.3-44.2); Mean Corpuscular HGB Conc 28.9 g/dl (32-36); Mean Corpuscular Hemoglobin 27.4 pg (26-34); Mean Corpuscular Volume 94.9 fl (80-100); Mean Platelet Volume 10.9 fl (7.4-10.4); Monocytes Absolute Auto 0.6 K/mm3 (0.1-0.6); Monocytes Percent Auto 7.7 % (2.6-8.5); Neutrophils Absolute Auto 5.1 K/mm3 (1.3-6.7); Neutrophils Percent Auto 68.1 % (45.5-73.1); Platelet Count Result 227 k/mm3 (150-375); Red Blood Count 2.77 M/mm3 (4.6-6.20); Red Cell Distribution Width 19.8 % (11.5-14.5); White Blood Count 7.5 K/mm3 (4.5-10.0)
[2022-09-29 06:55] LABS: Alanine Aminotransferase 32 U/L (6-50); Albumin Level 2.3 g/dL (3.5-5.1); Alkaline Phosphatase 83 U/L (38-126); Anion Gap 3 mmol/L (8-16); Aspartate Amino Transferase 20 U/L (17-59); Bilirubin,Total 0.4 mg/dL (0.2-1.3); Blood Urea Nitrogen 47 mg/dL (9-20); Calcium 8.1 mg/dL (8.4-10.2); Carbon Dioxide 20 mmol/L (22-30); Chloride 115 mmol/L (98-107); Estimated CRCL calculation 28 ml/min; Estimated Glomerular Filt Rate 24; Glucose 120 mg/dL (65-110); Magnesium 1.9 mg/dL (1.6-2.3); Sodium 138 mmol/L (137-145)
[2022-09-29 08:52] VITALS: PULSE 76
[2022-09-29] MEDS: METOPROLOL SUCCINATE EXT REL 25 MG TABCR PO ×2 (08:52→16:58)
[2022-09-29] MEDS: SODIUM CHLORIDE 1 GM TABLET PO (08:52)
[2022-09-29] MEDS: GABAPENTIN 300 MG CAPSULE PO ×3 (08:52→16:59)
[2022-09-29] MEDS: ATORVASTATIN 20 MG TABLET PO (08:54)
[2022-09-29] MEDS: hydrALAZINE HCL 25 MG TABLET PO ×3 (08:54→16:58)
[2022-09-29] MEDS: ASPIRIN 81 MG CHEWABLE TABLET PO (08:54)
[2022-09-29 10:15] LABS: Anisocytosis 2+ (NORMAL); Crenated RBC 1+ (NORMAL); Platelet Estimate Adequate (Adequate); Schistocytes None Seen (NORMAL); Tear Drop Cells 1+ (NORMAL)
[2022-09-29] MEDS: SILVERGEL (ELTA) 45 ML 1 APPLIC TOPICAL (10:48)
[2022-09-29 14:00] VITALS: BP 116/69; PULSE 78; RESP 18; TEMP 36.2; O2SAT 91
[2022-09-29] MEDS: HYDROGEN PEROXIDE 3% SOLN(*SP) 473 ML BOTTLE (16:56)
[2022-09-29 16:58] VITALS: PULSE 72
--- NOTE | 2022-09-29 17:25 | P.PNNP_ITS ---
Progress Note: A&P Assessment and Plan (1) ULISSES (acute kidney injury): Code(s): N17.9 - Acute kidney failure, unspecified Status: Acute Assessment and Plan: * acute kidney injury. * His baseline creatinine is normal * urine electrolytes pre renal. Ultrasound shows normal solitary kidney. CPK normal. * He does have peripheral eosinophilia, although urine eosinophils are negative. The latter is not a very sensitive test. Allergic interstitial nephritis is a possibility, especially since his creatinine is not improving. Possible causes among his current medications include hydralazine and cefepime, and past medications include vancomycin, amoxicillin, meloxicam. Course he is off the ladder 3. * Will try to get him off hydralazine and consider changing cefepime to a non cephalosporin/Penicillin. * Other possibilities for ULISSES include wound infection and possibly pneumonia * with the presence of these 2 and the decubitus ulcer, steroids would be unwise at this point. * The patient does have a lot of swelling. I agree with trying a couple of doses of Lasix. * Albumin only 2.3. Consider some albumin with the diuretics tomorrow if he does not have a good diuresis tonight. * Check a creatinine tomorrow (2) Decubitus ulcer of sacral area: Code(s): L89.159 - Pressure ulcer of sacral region, unspecified stage Status: Acute Assessment and Plan: * as noted on admission * concerns for osteomyelitis but imaging negative * General Surgery and wound care following * s/p debridement * on antibiotic therapy (3) Hypertension: Code(s): I10 - Essential (primary) hypertension Status: Chronic Assessment and Plan: * reasonable control at this time * It is so good I think we can just stop the hydralazine. * Will see how the blood pressure does without this. (4) Normocytic anemia: Code(s): D64.9 - Anemia, unspecified Status: Acute Assessment and Plan: * s/p PRBC transfusion * suspect due to extensive wounds * ULISSES may be contributing * consider OBDULIA therapy while hospitalized (5) Physical debility: Code(s): R53.81 - Other malaise Status: Acute Assessment and Plan: * seems soemwhat bed-bound * PT/OT as tolerated Will continue to follow. Subjective Date/time seen: 09/29/22 17:25 Interval history: patient lying in bed on his right side. No chest pain or shortness of breath. No belly pain Exam Narrative: General: WD/WN elderly male in NAD Heart: normal S1 and S2; no rub or gallop Lungs: decreased at bases Abdomen: soft, nontender, nondistended, positive bowel sounds Extremities: no cyanosis or clubbing; trace - 1+ edema Skin: no rash Objective Data Vital Signs Vital Signs: Vital Signs - 24 hr 09/28/22 21:39 09/28/22 20:00 09/28/22 22:00 Temperature 97.3 F L Pulse Rate 80 80 86 Respiratory Rate 14 18 Blood Pressure 114/62 Pulse Oximetry 93 94 Oxygen Delivery Room Air 09/29/22 06:00 09/29/22 08:52 09/29/22 08:50 Temperature 97.4 F L Pulse Rate 78 76 Respiratory Rate 22 H Blood Pressure 139/83 Pulse Oximetry 93 Oxygen Delivery Room Air 09/29/22 14:00 09/29/22 16:58 Temperature 97.1 F L
--- NOTE | 2022-09-29 17:25 | PM.PNNEP ---
Progress Note: A&P Assessment and Plan (1) ULISSES (acute kidney injury): Code(s): N17.9 - Acute kidney failure, unspecified Status: Acute Assessment and Plan: acute kidney injury. His baseline creatinine is normal urine electrolytes pre renal. Ultrasound shows normal solitary kidney. CPK normal. He does have peripheral eosinophilia, although urine eosinophils are negative. The latter is not a very sensitive test. Allergic interstitial nephritis is a possibility, especially since his creatinine is not improving. Possible causes among his current medications include hydralazine and cefepime, and past medications include vancomycin, amoxicillin, meloxicam. Course he is off the ladder 3. Will try to get him off hydralazine and consider changing cefepime to a non cephalosporin/Penicillin. Other possibilities for ULISSES include wound infection and possibly pneumonia with the presence of these 2 and the decubitus ulcer, steroids would be unwise at this point. The patient does have a lot of swelling. I agree with trying a couple of doses of Lasix. Albumin only 2.3. Consider some albumin with the diuretics tomorrow if he does not have a good diuresis tonight. Check a creatinine tomorrow (2) Decubitus ulcer of sacral area: Code(s): L89.159 - Pressure ulcer of sacral region, unspecified stage Status: Acute Assessment and Plan: as noted on admission concerns for osteomyelitis but imaging negative General Surgery and wound care following s/p debridement on antibiotic therapy (3) Hypertension: Code(s): I10 - Essential (primary) hypertension Status: Chronic Assessment and Plan: reasonable control at this time It is so good I think we can just stop the hydralazine. Will see how the blood pressure does without this. (4) Normocytic anemia: Code(s): D64.9 - Anemia, unspecified Status: Acute Assessment and Plan: s/p PRBC transfusion suspect due to extensive wounds ULISSES may be contributing consider OBDULIA therapy while hospitalized (5) Physical debility: Code(s): R53.81 - Other malaise Status: Acute Assessment and Plan: seems soemwhat bed-bound PT/OT as tolerated Will continue to follow. Subjective Date/time seen: 09/29/22 17:25 Interval history: patient lying in bed on his right side. No chest pain or shortness of breath. No belly pain Exam Narrative: General: WD/WN elderly male in NAD Heart: normal S1 and S2; no rub or gallop Lungs: decreased at bases Abdomen: soft, nontender, nondistended, positive bowel sounds Extremities: no cyanosis or clubbing; trace - 1+ edema Skin: no rash Objective Data Vital Signs Vital Signs: Vital Signs - 24 hr 09/28/22 21:39 09/28/22 20:00 09/28/22 22:00 Temperature 97.3 F L Pulse Rate 80 80 86 Respiratory Rate 14 18 Blood Pressure 114/62 Pulse Oximetry 93 94 Oxygen Delivery Room Air 09/29/22 06:00 09/29/22 08:52 09/29/22 08:50 Temperature 97.4 F L Pulse Rate 78 76 Respiratory Rate 22 H Blood Pressure 139/83 Pulse Oximetry 93 Oxygen Delivery Room Air 09/29/22 14:00 09/29/22 16:58 Temperature 97.1 F L Pulse Rate 78 72 Respiratory Rate 18 Blood Pressure 116/69 Pulse Oximetry 91 Oxygen Delivery Intake/Output Intake/Output: Intake & Output 09/26/22 09/27/22 09/28/22 09/29/22 23:59 23:59 23:59 23:59 Intake Total 1910 2030 1430 760 Output Total 510 895 2865 275 Balance 1260 1205 140 485 Meds/Results Medications: Active Medications Generic Name Dose Route Start Last Admin Trade Name Freq PRN Reason Stop Dose Admin Acetaminophen 650 mg 09/15/22 17:02 09/15/22 17:31 Acetaminophen 325 Mg Tablet PO 650 mg Q6H PRN Administration Mild Pain (1-3) or Fever Apixaban 5 mg 09/26/22 17:00 09/27/22 08:39 Apixaban 5 Mg Tablet PO 5 mg BID JOSE G Admin
[2022-09-29 20:15] VITALS: PULSE 84; RESP 20; O2SAT 95
[2022-09-29 20:19] LABS: Vancomycin Random 21.5 ug/mL (10-20)
[2022-09-29] MEDS: TAMSULOSIN HCL 0.4 MG CAPSULE PO (21:00)
[2022-09-29 22:00] VITALS: BP 112/76; PULSE 84; RESP 20; TEMP 36.1; O2SAT 95
[2022-09-29 22:02] LABS: Myoglobin, Urine 90 mcg/L (<28)
[2022-09-30] MEDS: metroNIDAZOLE 500 MG/ISO 100ML 500 MG/100 ML BAG 100 MG IVPB ×4 (00:32→17:54)
[2022-09-30 06:00] VITALS: BP 125/70; PULSE 70; RESP 22; TEMP 36.2; O2SAT 94
[2022-09-30 07:02] LABS: Basophils Absolute Auto 0.1 K/mm3 (0.0-0.1); Basophils Percent Auto 0.8 % (0.2-1.2); Eosinophils Absolute Auto 0.7 K/mm3 (0-0.3); Eosinophils Percent Auto 10.7 % (0-4.4); Hematocrit 25.7 % (42.0-52.0); Hemoglobin 7.2 g/dL (14.0-18.0); Immature Granulocyte Percent A 1.6 % (0-0.5); Lymphocytes Percent Auto 19.8 % (18.3-44.2); Mean Corpuscular Hemoglobin 27.1 pg (26-34); Mean Corpuscular Volume 96.6 fl (80-100); Mean Platelet Volume 11.4 fl (7.4-10.4); Monocytes Absolute Auto 0.5 K/mm3 (0.1-0.6); Monocytes Percent Auto 8.1 % (2.6-8.5); Neutrophils Absolute Auto 3.6 K/mm3 (1.3-6.7); Platelet Count Result 216 k/mm3 (150-375); Red Blood Count 2.66 M/mm3 (4.6-6.20); Red Cell Distribution Width 20.3 % (11.5-14.5); White Blood Count 6.1 K/mm3 (4.5-10.0)
[2022-09-30 07:13] LABS: Alanine Aminotransferase 27 U/L (6-50); Albumin Level 2.2 g/dL (3.5-5.1); Alkaline Phosphatase 77 U/L (38-126); Anion Gap 3 mmol/L (8-16); Aspartate Amino Transferase 26 U/L (17-59); Bilirubin,Total 0.5 mg/dL (0.2-1.3); Blood Urea Nitrogen 56 mg/dL (9-20); Calcium 8.4 mg/dL (8.4-10.2); Carbon Dioxide 21 mmol/L (22-30); Chloride 118 mmol/L (98-107); Estimated CRCL calculation 17 ml/min; Estimated Glomerular Filt Rate 27; Glucose 84 mg/dL (65-110); Magnesium 1.8 mg/dL (1.6-2.3); Phosphorus 3.5 mg/dL (2.5-4.5); Potassium 4.1 mmol/L (3.4-5.0); Sodium 142 mmol/L (137-145)
[2022-09-30 08:48] LABS: Anisocytosis 1+ (NORMAL); Burr Cells 1+ (NORMAL); Ovalocytes 1+ (NORMAL); Platelet Estimate Adequate (Adequate)
[2022-09-30 08:49] LABS: Acanthocytes 1+ (NORMAL); Schistocytes None Seen (NORMAL)
[2022-09-30 08:51] VITALS: PULSE 76
[2022-09-30] MEDS: METOPROLOL SUCCINATE EXT REL 25 MG TABCR PO ×2 (08:51→17:56)
[2022-09-30] MEDS: SODIUM CHLORIDE 1 GM TABLET PO (08:51)
[2022-09-30] MEDS: GABAPENTIN 300 MG CAPSULE PO ×3 (08:52→17:55)
[2022-09-30] MEDS: APIXABAN 5 MG TABLET PO ×2 (08:52→17:56)
[2022-09-30] MEDS: ASPIRIN 81 MG CHEWABLE TABLET PO (08:53)
[2022-09-30] MEDS: ATORVASTATIN 20 MG TABLET PO (08:53)
[2022-09-30] MEDS: FUROSEMIDE INJ 40 MG/4 ML VIAL IV PUSH (08:53)
--- NOTE | 2022-09-30 09:06 | P.PNNP_ITS ---
Progress Note: A&P Assessment and Plan (1) ULISSES (acute kidney injury): Code(s): N17.9 - Acute kidney failure, unspecified Status: Acute Assessment and Plan: * acute kidney injury. * His baseline creatinine is normal * urine electrolytes pre renal. Ultrasound shows normal solitary kidney. CPK normal. * He does have peripheral eosinophilia, although urine eosinophils are negative. The latter is not a very sensitive test. Allergic interstitial nephritis is a possibility, especially since his creatinine is not improving. Possible causes among his current medications include hydralazine and cefepime, and past medications include vancomycin, amoxicillin, meloxicam. Course he is off the ladder 3. * Will try to get him off hydralazine and consider changing cefepime to a non cephalosporin/Penicillin. * Other possibilities for ULISSES include wound infection and possibly pneumonia * with the presence of these 2 and the decubitus ulcer, steroids would be unwise at this point. * creatinine is better today * he has swelling. * he had 2 doses of lasix and not much of a response. * will try higher dose kitty since the creatinine is better (2) Decubitus ulcer of sacral area: Code(s): L89.159 - Pressure ulcer of sacral region, unspecified stage Status: Acute Assessment and Plan: * as noted on admission * concerns for osteomyelitis but imaging negative * General Surgery and wound care following * s/p debridement * on antibiotic therapy (3) Hypertension: Code(s): I10 - Essential (primary) hypertension Status: Chronic Assessment and Plan: * systolic in the range below 130 * off hydralazine (4) Normocytic anemia: Code(s): D64.9 - Anemia, unspecified Status: Acute Assessment and Plan: * s/p PRBC transfusion * suspect due to extensive wounds * ULISSES may be contributing * consider OBDULIA therapy while hospitalized (5) Physical debility: Code(s): R53.81 - Other malaise Status: Acute Assessment and Plan: * seems soemwhat bed-bound * PT/OT as tolerated Will continue to follow. Subjective Date/time seen: 09/30/22 09:06 Interval history: pt lying flat in bed. no cp or sob he has some swelling still. this is chronic he says Exam Narrative: General: WD/WN elderly male in NAD Heart: normal S1 and S2; no rub or gallop Lungs: decreased at bases Abdomen: soft, nontender, nondistended, positive bowel sounds Extremities: no cyanosis or clubbing; 1+ edema Skin: no rash Objective Data Vital Signs Vital Signs: Vital Signs - 24 hr 09/29/22 14:00 09/29/22 16:58 09/29/22 22:00 Temperature 97.1 F L 97.0 F L Pulse Rate 78 72 84 Respiratory Rate 18 20 Blood Pressure 116/69 112/76 Pulse Oximetry 91 95 Oxygen Delivery 09/29/22 20:15 09/30/22 06:00 09/30/22 08:51 Temperature 97.2 F L Pulse Rate 84 70 76 Respiratory Rate 20 22 H Blood Pressure 125/70 Pulse Oximetry 95 94 Oxygen Delivery Room Air Intake/Output Intake/Output: Intake & Output 09/27/22 09/28/22 09/29/22 09/30/22 23:59 23:59 23:59 23:59 Intake Total 2030 1430 1450 100 Output Total 825 1290 482 600
--- NOTE | 2022-09-30 09:06 | PM.PNNEP ---
Progress Note: A&P Assessment and Plan (1) ULISSES (acute kidney injury): Code(s): N17.9 - Acute kidney failure, unspecified Status: Acute Assessment and Plan: acute kidney injury. His baseline creatinine is normal urine electrolytes pre renal. Ultrasound shows normal solitary kidney. CPK normal. He does have peripheral eosinophilia, although urine eosinophils are negative. The latter is not a very sensitive test. Allergic interstitial nephritis is a possibility, especially since his creatinine is not improving. Possible causes among his current medications include hydralazine and cefepime, and past medications include vancomycin, amoxicillin, meloxicam. Course he is off the ladder 3. Will try to get him off hydralazine and consider changing cefepime to a non cephalosporin/Penicillin. Other possibilities for ULISSES include wound infection and possibly pneumonia with the presence of these 2 and the decubitus ulcer, steroids would be unwise at this point. creatinine is better today he has swelling. he had 2 doses of lasix and not much of a response. will try higher dose kitty since the creatinine is better (2) Decubitus ulcer of sacral area: Code(s): L89.159 - Pressure ulcer of sacral region, unspecified stage Status: Acute Assessment and Plan: as noted on admission concerns for osteomyelitis but imaging negative General Surgery and wound care following s/p debridement on antibiotic therapy (3) Hypertension: Code(s): I10 - Essential (primary) hypertension Status: Chronic Assessment and Plan: systolic in the range below 130 off hydralazine (4) Normocytic anemia: Code(s): D64.9 - Anemia, unspecified Status: Acute Assessment and Plan: s/p PRBC transfusion suspect due to extensive wounds ULISSES may be contributing consider OBDULIA therapy while hospitalized (5) Physical debility: Code(s): R53.81 - Other malaise Status: Acute Assessment and Plan: seems soemwhat bed-bound PT/OT as tolerated Will continue to follow. Subjective Date/time seen: 09/30/22 09:06 Interval history: pt lying flat in bed. no cp or sob he has some swelling still. this is chronic he says Exam Narrative: General: WD/WN elderly male in NAD Heart: normal S1 and S2; no rub or gallop Lungs: decreased at bases Abdomen: soft, nontender, nondistended, positive bowel sounds Extremities: no cyanosis or clubbing; 1+ edema Skin: no rash Objective Data Vital Signs Vital Signs: Vital Signs - 24 hr 09/29/22 14:00 09/29/22 16:58 09/29/22 22:00 Temperature 97.1 F L 97.0 F L Pulse Rate 78 72 84 Respiratory Rate 18 20 Blood Pressure 116/69 112/76 Pulse Oximetry 91 95 Oxygen Delivery 09/29/22 20:15 09/30/22 06:00 09/30/22 08:51 Temperature 97.2 F L Pulse Rate 84 70 76 Respiratory Rate 20 22 H Blood Pressure 125/70 Pulse Oximetry 95 94 Oxygen Delivery Room Air Intake/Output Intake/Output: Intake & Output 09/27/22 09/28/22 09/29/22 09/30/22 23:59 23:59 23:59 23:59 Intake Total 2030 1430 1450 100 Output Total 825 1290 275 600 Balance 9523 587 6670 -500 Meds/Results Medications: Active Medications Generic Name Dose Route Start Last Admin Trade Name Alexanderq PRN Reason Stop Dose Admin Acetaminophen 650 mg 09/15/22 17:02 09/15/22 17:31 Acetaminophen 325 Mg Tablet PO 650 mg Q6H PRN Administration Mild Pain (1-3) or Fever Apixaban 5 mg 09/26/22 17:00 09/30/22 08:52 Apixaban 5 Mg Tablet PO 5 mg BID JOSE G Administration Aspirin 81 mg 09/16/22 09:00 09/30/22 08:53 Aspirin 81 Mg Chewable Tablet PO 81 mg DAILY JOSE G Administration Atorvastatin Calcium 20 mg 09/16/22 09:00 09/30/22 08:53 Atorvastatin 20 Mg Tablet PO 20 mg DAILY JOSE G Administration Furosemide 40 mg 09/30/22 09:00 09/30/22 08:53 Furosemide Inj 40 Mg/4 M
[2022-09-30] MEDS: SILVERGEL (ELTA) 45 ML 1 APPLIC TOPICAL (12:09)
[2022-09-30 14:00] VITALS: BP 116/70; PULSE 77; RESP 16; TEMP 35.9; O2SAT 91
[2022-09-30] MEDS: ACETAMINOPHEN 325 MG TABLET 650 MG PO (17:55)
[2022-09-30 17:56] VITALS: PULSE 69
[2022-09-30] MEDS: BUMETANIDE INJ 2.5 MG/10 ML VIAL 2 MG IV PUSH (18:00)
[2022-09-30 20:30] VITALS: PULSE 78; RESP 18; O2SAT 95
[2022-09-30] MEDS: TAMSULOSIN HCL 0.4 MG CAPSULE PO (21:05)
[2022-09-30 22:00] VITALS: BP 122/78; PULSE 78; RESP 18; TEMP 36.3; O2SAT 95
[2022-10-01] MEDS: metroNIDAZOLE 500 MG/ISO 100ML 500 MG/100 ML BAG 100 MG IVPB ×4 (05:50→17:37)
[2022-10-01 06:00] VITALS: BP 115/72; PULSE 71; RESP 20; TEMP 36.1; O2SAT 96
--- NOTE | 2022-10-01 09:53 | PCNFU ---
Nutrition Follow-Up Complete: Unintentional weight loss related to reduced appetite and intake as evidenced by pt report Goal: Meet estimated needs _ progressing toward goal Pt current nutrition is Heart healthy diet. Prasanth BID for additional 90 kcals and 2.5 g protein each. Ensure Compact BID for 220 kcals and 9 g protein each. Nutrition recommendation: Continue with current nutrition care plan and monitoring. Agree with diet order Last recorded weight is 104.5 kg. Weight loss 4%/1 week: 10 lb Bowel Motility: + 1 BM 10/01/22 Labs Reviewed:Hgb 7.2, Hct 25.7, Alb 2.2, BUN 56, Cre 2.4 Meds Noted: Apixaban, cefepime, Zofran, bumex Skin: Stage IV coccyx; Unstageable R heel Additional Notes: Appetite is variable. Average intake 50%. Supplements are on board. Agree with current diet order and care plan. Monitor for diet order, intake, wt, labs, skin. Follow up in 3 days.
[2022-10-01] MEDS: ASPIRIN 81 MG CHEWABLE TABLET PO (09:57)
[2022-10-01] MEDS: APIXABAN 5 MG TABLET PO ×2 (09:57→17:38)
[2022-10-01] MEDS: ATORVASTATIN 20 MG TABLET PO (09:57)
[2022-10-01] MEDS: BUMETANIDE INJ 2.5 MG/10 ML VIAL 2 MG IV PUSH ×2 (09:58→17:38)
[2022-10-01] MEDS: SODIUM CHLORIDE 1 GM TABLET PO (09:58)
[2022-10-01] MEDS: METOPROLOL SUCCINATE EXT REL 25 MG TABCR PO ×2 (09:58→17:38)
[2022-10-01] MEDS: GABAPENTIN 300 MG CAPSULE PO ×3 (09:58→17:38)
[2022-10-01] MEDS: metOLazone 5 MG TABLET PO (09:58)
[2022-10-01 11:01] LABS: Basophils Absolute Auto 0.1 K/mm3 (0.0-0.1); Basophils Percent Auto 1.1 % (0.2-1.2); Eosinophils Absolute Auto 0.5 K/mm3 (0-0.3); Eosinophils Percent Auto 9.6 % (0-4.4); Hematocrit 27.3 % (42.0-52.0); Hemoglobin 7.2 g/dL (14.0-18.0); Immature Granulocyte Percent A 1.8 % (0-0.5); Lymphocytes Absolute Auto 1.06 K/mm3 (0.9-3.2); Lymphocytes Percent Auto 18.9 % (18.3-44.2); Mean Corpuscular HGB Conc 26.4 g/dl (32-36); Mean Corpuscular Hemoglobin 27.3 pg (26-34); Mean Corpuscular Volume 103.4 fl (80-100); Mean Platelet Volume 11.8 fl (7.4-10.4); Monocytes Absolute Auto 0.4 K/mm3 (0.1-0.6); Monocytes Percent Auto 6.2 % (2.6-8.5); Neutrophils Absolute Auto 3.5 K/mm3 (1.3-6.7); Neutrophils Percent Auto 62.4 % (45.5-73.1); Nucleated Red Blood Cells Perc 0.4 % (0.0-0.2); Platelet Count Result 199 k/mm3 (150-375); Red Blood Count 2.64 M/mm3 (4.6-6.20); Red Cell Distribution Width 20.7 % (11.5-14.5); White Blood Count 5.6 K/mm3 (4.5-10.0)
[2022-10-01 11:06] LABS: Alanine Aminotransferase 23 U/L (6-50); Albumin Level 2.3 g/dL (3.5-5.1); Alkaline Phosphatase 68 U/L (38-126); Anion Gap 3 mmol/L (8-16); Aspartate Amino Transferase 19 U/L (17-59); Bilirubin,Total 0.4 mg/dL (0.2-1.3); Blood Urea Nitrogen 59 mg/dL (9-20); Calcium 8.3 mg/dL (8.4-10.2); Carbon Dioxide 24 mmol/L (22-30); Chloride 112 mmol/L (98-107); Estimated CRCL calculation 31 ml/min; Estimated Glomerular Filt Rate 28; Glucose 108 mg/dL (65-110); Magnesium 1.7 mg/dL (1.6-2.3); Phosphorus 3.6 mg/dL (2.5-4.5); Potassium 3.6 mmol/L (3.4-5.0); Sodium 139 mmol/L (137-145)
[2022-10-01 11:20] LABS: Ovalocytes 2+ (NORMAL); Platelet Estimate Adequate (Adequate)
[2022-10-01 11:21] LABS: Acanthocytes 2+ (NORMAL); Crenated RBC 2+ (NORMAL); Polychromasia 1+ (NORMAL); Schistocytes 1+ (NORMAL)
[2022-10-01 11:23] LABS: Helmet Cells 1+ (NORMAL)
[2022-10-01] MEDS: SILVERGEL (ELTA) 45 ML 1 APPLIC TOPICAL (12:58)
[2022-10-01 13:38] VITALS: BP 125/71; PULSE 73; RESP 18; TEMP 36.2; O2SAT 97
--- NOTE | 2022-10-01 17:33 | P.PNNP_ITS ---
Progress Note: A&P Assessment and Plan (1) ULISSES (acute kidney injury): Code(s): N17.9 - Acute kidney failure, unspecified Status: Acute Assessment and Plan: * acute kidney injury. * His baseline creatinine is normal * urine electrolytes pre renal. Ultrasound shows normal solitary kidney. CPK normal. * He does have peripheral eosinophilia. Today it is 9.6% * he is off the hydralazine and consider changing cefepime to a non cephalosporin/Penicillin. * Other possibilities for ULISSES include wound infection and possibly pneumonia * with the presence of these 2 and the decubitus ulcer, steroids would be unwise at this point. * creatinine is better today * he has swelling. * he had 2 doses of Bumetanide and intake/output is negative. * Creatinine has come down a little bit so will continue the Bumetanide. (2) Decubitus ulcer of sacral area: Code(s): L89.159 - Pressure ulcer of sacral region, unspecified stage Status: Acute Assessment and Plan: * as noted on admission * concerns for osteomyelitis but imaging negative * General Surgery and wound care following * s/p debridement * on antibiotic therapy (3) Hypertension: Code(s): I10 - Essential (primary) hypertension Status: Chronic Assessment and Plan: * systolic in the range below 130 * off hydralazine (4) Normocytic anemia: Code(s): D64.9 - Anemia, unspecified Status: Acute Assessment and Plan: * s/p PRBC transfusion * suspect due to extensive wounds * ULISSES may be contributing * Creatinine is very slowly improving. Will start EPO. (5) Physical debility: Code(s): R53.81 - Other malaise Status: Acute Assessment and Plan: * seems somewhat bed-bound * PT/OT as tolerated Will continue to follow. Subjective Date/time seen: 10/01/22 17:33 Interval history: pt lying flat in bed. no cp or sob Exam Narrative: General: WD/WN elderly male in NAD Heart: normal S1 and S2; no rub or gallop Lungs: decreased at bases Abdomen: soft, nontender, nondistended, positive bowel sounds Extremities: no cyanosis or clubbing; 1+ bilateral edema Skin: no rash or subcu nodules Objective Data Vital Signs Vital Signs: Vital Signs - 24 hr 09/30/22 17:56 09/30/22 22:00 12/20/22 20:30 Temperature 97.4 F L Pulse Rate 69 78 78 Respiratory Rate 18 18 Blood Pressure 122/78 Pulse Oximetry 95 95 Oxygen Delivery Room Air 10/01/22 06:00 10/01/22 13:38 Temperature 97.0 F L 97.1 F L Pulse Rate 71 73 Respiratory Rate 20 18 Blood Pressure 115/72 125/71 Pulse Oximetry 96 97 Oxygen Delivery Intake/Output Intake/Output: Intake & Output 09/28/22 09/29/22 09/30/22 10/01/22 23:59 23:59 23:59 23:59 Intake Total 1430 1450 1480 840 Output Total 1684 411 5658 1400 Balance 140 3521 -409 -830 Meds/Results Medications: Active Medications Generic Name Dose Route Start Last Admin Trade Name Freq PRN Reason Stop Dose Admin Acetaminophen 650 mg 09/15/22 17:02 09/30/22 17:55 Acetaminophen 325 Mg Tablet PO 650 mg Q6H PRN
--- NOTE | 2022-10-01 17:33 | PM.PNNEP ---
Progress Note: A&P Assessment and Plan (1) ULISSES (acute kidney injury): Code(s): N17.9 - Acute kidney failure, unspecified Status: Acute Assessment and Plan: acute kidney injury. His baseline creatinine is normal urine electrolytes pre renal. Ultrasound shows normal solitary kidney. CPK normal. He does have peripheral eosinophilia. Today it is 9.6% he is off the hydralazine and consider changing cefepime to a non cephalosporin/Penicillin. Other possibilities for ULISSES include wound infection and possibly pneumonia with the presence of these 2 and the decubitus ulcer, steroids would be unwise at this point. creatinine is better today he has swelling. he had 2 doses of Bumetanide and intake/output is negative. Creatinine has come down a little bit so will continue the Bumetanide. (2) Decubitus ulcer of sacral area: Code(s): L89.159 - Pressure ulcer of sacral region, unspecified stage Status: Acute Assessment and Plan: as noted on admission concerns for osteomyelitis but imaging negative General Surgery and wound care following s/p debridement on antibiotic therapy (3) Hypertension: Code(s): I10 - Essential (primary) hypertension Status: Chronic Assessment and Plan: systolic in the range below 130 off hydralazine (4) Normocytic anemia: Code(s): D64.9 - Anemia, unspecified Status: Acute Assessment and Plan: s/p PRBC transfusion suspect due to extensive wounds ULISSES may be contributing Creatinine is very slowly improving. Will start EPO. (5) Physical debility: Code(s): R53.81 - Other malaise Status: Acute Assessment and Plan: seems somewhat bed-bound PT/OT as tolerated Will continue to follow. Subjective Date/time seen: 10/01/22 17:33 Interval history: pt lying flat in bed. no cp or sob Exam Narrative: General: WD/WN elderly male in NAD Heart: normal S1 and S2; no rub or gallop Lungs: decreased at bases Abdomen: soft, nontender, nondistended, positive bowel sounds Extremities: no cyanosis or clubbing; 1+ bilateral edema Skin: no rash or subcu nodules Objective Data Vital Signs Vital Signs: Vital Signs - 24 hr 09/30/22 17:56 09/30/22 22:00 09/30/22 20:30 Temperature 97.4 F L Pulse Rate 69 78 78 Respiratory Rate 18 18 Blood Pressure 122/78 Pulse Oximetry 95 95 Oxygen Delivery Room Air 10/01/22 06:00 10/01/22 13:38 Temperature 97.0 F L 97.1 F L Pulse Rate 71 73 Respiratory Rate 20 18 Blood Pressure 115/72 125/71 Pulse Oximetry 96 97 Oxygen Delivery Intake/Output Intake/Output: Intake & Output 09/28/22 09/29/22 09/30/22 10/01/22 23:59 23:59 23:59 23:59 Intake Total 1430 1450 1480 840 Output Total 2177 622 2429 1400 Balance 140 2935 -197 -066 Meds/Results Medications: Active Medications Generic Name Dose Route Start Last Admin Trade Name Freq PRN Reason Stop Dose Admin Acetaminophen 650 mg 09/15/22 17:02 09/30/22 17:55 Acetaminophen 325 Mg Tablet PO 650 mg Q6H PRN Administration Mild Pain (1-3) or Fever Apixaban 5 mg 09/26/22 17:00 10/01/22 09:57 Apixaban 5 Mg Tablet PO 5 mg BID JOSE G Administration Aspirin 81 mg 09/16/22 09:00 10/01/22 09:57 Aspirin 81 Mg Chewable Tablet PO 81 mg DAILY JOSE G Administration Atorvastatin Calcium 20 mg 09/16/22 09:00 10/01/22 09:57 Atorvastatin 20 Mg Tablet PO 20 mg DAILY JOSE G Administration Bumetanide 2 mg 09/30/22 17:25 10/01/22 09:58 Bumetanide Inj 2.5 Mg/10 Ml Vial IV PUSH 2 mg BID JOSE G Administration Gabapentin 300 mg 09/15/22 18:50 10/01/22 12:58 Gabapentin 300 Mg Capsule PO 300 mg TID JOSE G Administration Cefepime HCl 1 gm in 50 mls @ 100 mls/hr 09/27/22 13:00 10/01/22 13:28 Maxipime 1 Gm/D5w 50 Ml IVPB Infused Q24H JOSE G Infusion Metronidazole 500 mg in 100 mls @ 100 mls/hr
--- NOTE | 2022-10-01 18:02 | PM.IMPN ---
Progress Note: A&P Assessment and Plan (1) Decubitus ulcer of sacral area: Code(s): L89.159 - Pressure ulcer of sacral region, unspecified stage Status: Acute Assessment and Plan: Okay to discharge back to nursing facility per general surgery, no signs of osteomyelitis and wound, on cefepime and Flagyl (2) Osteomyelitis: Code(s): M86.9 - Osteomyelitis, unspecified Status: Acute Assessment and Plan: Do not suspect osteomyelitis (3) Chronic anticoagulation: Code(s): Z79.01 - cooker sulfate (current) use of anticoagulants Status: Acute Assessment and Plan: Continue Eliquis (4) Coronary artery disease: Code(s): I25.10 - Atherosclerotic heart disease of [place] coronary artery without angina pectoris Status: Acute Assessment and Plan: Continue aspirin, statin, and beta-dedra. (5) Obstructive sleep apnea: Code(s): G47.33 - Obstructive sleep apnea (adult) (pediatric) Status: Acute Assessment and Plan: CPAP will be provided for the patient to use while hospitalized. (6) Physical debility: Code(s): R53.81 - Other malaise Status: Acute Assessment and Plan: Plan is for rehab/nursing facility at discharge (7) Hypertension: Code(s): I10 - Essential (primary) hypertension Status: Chronic Assessment and Plan: Blood pressures were reviewed and they are stable. (8) Normocytic anemia: Code(s): D64.9 - Anemia, unspecified Status: Acute Assessment and Plan: Iron deficiency anemia, status post Venofer Plan DVT prophylaxis with Eliquis GI prophylaxis not indicated Code status full code Subjective Date/time seen: 10/01/22 18:02 Interval history: No overnight events noted. No chest pain or shortness of breath. No nausea, vomiting or diarrhea. No fevers or chills. Patient states his wound hurts, about the same as yesterday. Review of Systems Review of Systems: 12 point review of systems was assessed and was negative except as noted in the HPI Exam Narrative: General: No acute distress, alert and oriented per baseline HEENT: Atraumatic, normocephalic, mucous membranes moist CV: Regular rate and rhythm, S1, S2 Lungs: Clear to auscultation bilaterally, no rales or crackles noted, no wheezes, good air entry Abdomen: Soft, nontender, nondistended Extremities: Normal to inspection Skin: No rashes noted, no lesions or wounds seen Psych: Euthymic, normal affect Objective Data Vital Signs Vital Signs: Vital Signs - 24 hr 09/30/22 22:00 09/30/22 20:30 10/01/22 06:00 Temperature 97.4 F L 97.0 F L Pulse Rate 78 78 71 Respiratory Rate 18 18 20 Blood Pressure 122/78 115/72 Pulse Oximetry 95 95 96 Oxygen Delivery Room Air 10/01/22 13:38 Temperature 97.1 F L Pulse Rate 73 Respiratory Rate 18 Blood Pressure 125/71 Pulse Oximetry 97 Oxygen Delivery Intake/Output Intake/Output: Intake & Output 09/28/22 09/29/22 09/30/22 10/01/22 23:59 23:59 23:59 23:59 Intake Total 1430 1450 1480 840 Output Total 5346 218 1273 1400 Balance 140 9097 -840 -775 Meds/Results Medications: Active Medications Generic Name Dose Route Start Last Admin Trade Name Alexanderq PRN Reason Stop Dose Admin Acetaminophen 650 mg 09/15/22 17:02 09/30/22 17:55 Acetaminophen 325 Mg Tablet PO 650 mg Q6H PRN Administration Mild Pain (1-3) or Fever Apixaban 5 mg 09/26/22 17:00 10/01/22 17:38 Apixaban 5 Mg Tablet PO 5 mg BID JOSE G Administration Aspirin 81 mg 09/16/22 09:00 10/01/22 09:57 Aspirin 81 Mg Chewable Tablet PO 81 mg DAILY JOSE G Administration Atorvastatin Calcium 20 mg 09/16/22 09:00 10/01/22 09:57 Atorvastatin 20 Mg Tablet PO 20 mg DAILY JOSE G Administration Bumetanide 2 mg 09/30/22 17:25 10/01/22 17:38 Bumetanide Inj 2.5 Mg/10 Ml Vial IV PUSH 2 mg BID JOSE G Administration Bumetanide 2
[2022-10-01] MEDS: EPOETIN ALFA-EPBX 10,000 UNITS/ML VIAL 10000 UNITS SUB-Q (18:49)
[2022-10-01] MEDS: TAMSULOSIN HCL 0.4 MG CAPSULE PO (20:27)
[2022-10-01 22:00] VITALS: BP 132/74; PULSE 71; RESP 20; TEMP 36.2; O2SAT 98
[2022-10-02] MEDS: metroNIDAZOLE 500 MG/ISO 100ML 500 MG/100 ML BAG 100 MG IVPB ×2 (00:06→05:34)
[2022-10-02] MEDS: HYDROcodone/acetaminophen (*CRX) 5-325 MG TABLET 1 TAB PO ×2 (05:35→21:45)
[2022-10-02 06:00] VITALS: BP 128/80; PULSE 73; RESP 16; TEMP 36.2; O2SAT 94
[2022-10-02 06:33] LABS: Basophils Absolute Auto 0.1 K/mm3 (0.0-0.1); Basophils Percent Auto 0.8 % (0.2-1.2); Eosinophils Absolute Auto 0.6 K/mm3 (0-0.3); Eosinophils Percent Auto 9.2 % (0-4.4); Hematocrit 25.9 % (42.0-52.0); Hemoglobin 7.4 g/dL (14.0-18.0); Immature Granulocyte Absolute 0.06 K/mm3 (0.00-0.031); Lymphocytes Absolute Auto 1.18 K/mm3 (0.9-3.2); Lymphocytes Percent Auto 19.4 % (18.3-44.2); Mean Corpuscular HGB Conc 28.6 g/dl (32-36); Mean Corpuscular Hemoglobin 26.9 pg (26-34); Mean Corpuscular Volume 94.2 fl (80-100); Mean Platelet Volume 11.1 fl (7.4-10.4); Monocytes Absolute Auto 0.5 K/mm3 (0.1-0.6); Monocytes Percent Auto 8.9 % (2.6-8.5); Neutrophils Absolute Auto 3.7 K/mm3 (1.3-6.7); Neutrophils Percent Auto 60.7 % (45.5-73.1); Platelet Count Result 207 k/mm3 (150-375); Red Blood Count 2.75 M/mm3 (4.6-6.20); Red Cell Distribution Width 20.6 % (11.5-14.5); White Blood Count 6.1 K/mm3 (4.5-10.0)
[2022-10-02 06:52] LABS: Alanine Aminotransferase 22 U/L (6-50); Albumin Level 2.3 g/dL (3.5-5.1); Alkaline Phosphatase 72 U/L (38-126); Anion Gap 1 mmol/L (8-16); Aspartate Amino Transferase 20 U/L (17-59); Bilirubin,Total 0.4 mg/dL (0.2-1.3); Blood Urea Nitrogen 61 mg/dL (9-20); Calcium 8.3 mg/dL (8.4-10.2); Carbon Dioxide 26 mmol/L (22-30); Chloride 111 mmol/L (98-107); Estimated CRCL calculation 31 ml/min; Estimated Glomerular Filt Rate 28; Glucose 82 mg/dL (65-110); Phosphorus 3.4 mg/dL (2.5-4.5); Potassium 3.2 mmol/L (3.4-5.0); Sodium 138 mmol/L (137-145)
[2022-10-02 07:42] LABS: Anisocytosis 1+ (NORMAL); Platelet Estimate Adequate (Adequate); Poikilocytosis 2+ (NORMAL); Tear Drop Cells 1+ (NORMAL)
[2022-10-02 07:43] LABS: Acanthocytes 2+ (NORMAL); Ovalocytes 1+ (NORMAL); Schistocytes Rare (NORMAL)
--- NOTE | 2022-10-02 08:55 | PM.PNGS ---
Progress Note: A&P Assessment and Plan (1) Decubitus ulcer of sacral area: Code(s): L89.159 - Pressure ulcer of sacral region, unspecified stage Status: Acute Assessment and Plan: Continue current treatment with sliver gel dressing changes daily. (2) Eschar of trunk: Code(s): R23.4 - Changes in skin texture Status: Acute Assessment and Plan: Apply Betadine paint daily. Eschar will eventually fall off once underlying skin has completely healed. Subjective Subjective Date/Time Seen: 10/02/22 08:55 Interval history: Assessed left chest wall wound today. Patient states it is from a fall many months ago. No other current complaints. Exam Skin: Other: Left chest wall wound appears chronic with healing scar and thick dry eschar in center measuring about 2cm by 5cm. No erythema or drainage. Sacral wound has slight yellow exudate but no purulent drainage or foul smell. Wound bed appears to have decent granulation and no new wounds developing. Objective Data Vital Signs Vital Signs: Vital Signs - 24 hr 10/01/22 13:38 10/01/22 22:00 10/02/22 06:00 Temperature 36.2 C L 36.2 C L 36.2 C L Pulse Rate 73 71 73 Respiratory Rate 18 20 16 Blood Pressure 125/71 132/74 128/80 Pulse Oximetry 97 98 94 Intake/Output Intake/Output: Intake & Output 09/29/22 09/30/22 10/01/22 10/02/22 23:59 23:59 23:59 23:59 Intake Total 1450 1480 1360 800 Output Total 275 2050 2200 1750 Balance 1175 -570 -840 -950 Meds/Results Medications: Active Medications Generic Name Dose Route Start Last Admin Trade Name Freq PRN Reason Stop Dose Admin Acetaminophen 650 mg 09/15/22 17:02 09/30/22 17:55 Acetaminophen 325 Mg Tablet PO 650 mg Q6H PRN Administration Mild Pain (1-3) or Fever Hydrocodone Bitart/Acetaminophen 1 tab 10/01/22 18:10 10/02/22 05:35 Hydrocodone/Acetaminophen (*Crx) 5-325 Mg Tablet PO 1 tab Q6H PRN Administration Pain Rated 4-6 Apixaban 5 mg 09/26/22 17:00 10/01/22 17:38 Apixaban 5 Mg Tablet PO 5 mg BID JOSE G Administration Aspirin 81 mg 09/16/22 09:00 10/01/22 09:57 Aspirin 81 Mg Chewable Tablet PO 81 mg DAILY JOSE G Administration Atorvastatin Calcium 20 mg 09/16/22 09:00 10/01/22 09:57 Atorvastatin 20 Mg Tablet PO 20 mg DAILY JOSE G Administration Bumetanide 2 mg 09/30/22 17:25 10/01/22 17:38 Bumetanide Inj 2.5 Mg/10 Ml Vial IV PUSH 2 mg BID JOSE G Administration Epoetin Aj-epbx 10,000 units 10/01/22 17:40 10/01/22 18:49 Epoetin Aj-Epbx 10,000 Units/Ml Vial SUB-Q 10,000 units MOWEFR JOSE G Administration Gabapentin 300 mg 09/15/22 18:50 10/01/22 17:38 Gabapentin 300 Mg Capsule PO 300 mg TID JOSE G Administration Cefepime HCl 1 gm in 50 mls @ 100 mls/hr 09/27/22 13:00 10/01/22 13:28 Maxipime 1 Gm/D5w 50 Ml IVPB Infused Q24H JOSE G Infusion Metronidazole 500 mg in 100 mls @ 100 mls/hr 09/27/22 18:00 10/02/22 06:30 Flagyl 500 Mg/Iso Soln 100 Ml IVPB Infused Q6H JOSE G Infusion Metolazone 5 mg 10/01/22 09:00 10/01/22 09:58 Metolazone 5 Mg Tablet PO 5 mg QAM JOSE G Administration Metoprolol Succinate 25 mg 09/15/22 18:50 10/01/22 17:38 Metoprolol Succinate Ext Rel 25 Mg Tabcr PO 25 mg BID JOSE G Administration Miscellaneous Information 1 each 09/27/22 13:40 Morphine And [place] Orders Need To Be Renewed Or They Will Automatically Discontinue. XX 10/27/22 13:39 CLARIFY JOSE G Ondansetron HCl 4 mg 09/18/22 13:40 Ondansetron Inj 4 Mg/2 Ml Vial IV PUSH Q4H PRN Nausea And Vomiting Silver Nitrate 1 applic 09/16/22 09:00 10/01/22 12:58 Silvergel (Elta) 45 Ml TOPICAL 1 applic DAILY JOSE G Administration Sodium Chloride 1 gm 09/17/22 11:58 10/01/22 09:58 Sodium Chloride 1 Gm Tablet PO 1 gm QAM JOSE G Administration Tamsulosin HCl 0.4 mg 09/15/22 21:00 10/01/22 20:27 Tamsulosin Hcl 0.4 Mg Capsule PO 0.4 mg JOSE G
[2022-10-02] MEDS: ASPIRIN 81 MG CHEWABLE TABLET PO (09:33)
[2022-10-02] MEDS: METOPROLOL SUCCINATE EXT REL 25 MG TABCR PO ×2 (09:33→17:09)
[2022-10-02] MEDS: metOLazone 5 MG TABLET PO (09:33)
[2022-10-02] MEDS: GABAPENTIN 300 MG CAPSULE PO ×3 (09:33→17:09)
[2022-10-02] MEDS: SODIUM CHLORIDE 1 GM TABLET PO (09:33)
[2022-10-02] MEDS: APIXABAN 5 MG TABLET PO ×2 (09:33→17:09)
[2022-10-02] MEDS: ATORVASTATIN 20 MG TABLET PO (09:34)
[2022-10-02] MEDS: SILVERGEL (ELTA) 45 ML 1 APPLIC TOPICAL (09:34)
[2022-10-02] MEDS: BUMETANIDE INJ 2.5 MG/10 ML VIAL 2 MG IV PUSH ×2 (09:34→17:09)
[2022-10-02] MEDS: metroNIDAZOLE 500 MG/ISO 100ML 500 MG/100 ML BAG 1000 MG IVPB ×2 (12:57→17:08)
[2022-10-02 13:11] LABS: Chloride Rand Ur 82 mmol/L (32-290); Chloride/Creatinine Rand Ur 85 (23-275); Creatinine Random Urine 96 mg/dL (20-320)
[2022-10-02 14:00] VITALS: BP 108/66; PULSE 70; RESP 18; TEMP 36.1; O2SAT 95
--- NOTE | 2022-10-02 17:22 | PM.IMPN ---
Progress Note: A&P Assessment and Plan (1) ULISSES (acute kidney injury): Code(s): N17.9 - Acute kidney failure, unspecified Status: Acute Assessment and Plan: appreciate nephrology consultation, unsure of etiology, likely multifactorial currently receiving bumex and zaroxylyn for diuresis d/t anasarca, improving d/c when ok with nephrology (2) Decubitus ulcer of sacral area: Code(s): L89.159 - Pressure ulcer of sacral region, unspecified stage Status: Acute Assessment and Plan: Okay to discharge back to nursing facility per general surgery with wound care, no signs of osteomyelitis in wound, on cefepime and Flagyl Appreciate wound care consult Day 13 of abx, started on 09/15/22 with vanc + cefepime, back to d/c abx tomorrow after 14 days (3) Chronic anticoagulation: Code(s): Z79.01 - USP (current) use of anticoagulants Status: Acute Assessment and Plan: Continue Eliquis (4) Coronary artery disease: Code(s): I25.10 - Atherosclerotic heart disease of [place] coronary artery without angina pectoris Status: Acute Assessment and Plan: Continue aspirin, statin, and beta-dedra. (5) Obstructive sleep apnea: Code(s): G47.33 - Obstructive sleep apnea (adult) (pediatric) Status: Acute Assessment and Plan: CPAP will be provided for the patient to use while hospitalized. (6) Physical debility: Code(s): R53.81 - Other malaise Status: Acute Assessment and Plan: Plan is for rehab/nursing facility at discharge (7) Hypertension: Code(s): I10 - Essential (primary) hypertension Status: Chronic Assessment and Plan: Blood pressures were reviewed and they are stable. (8) Normocytic anemia: Code(s): D64.9 - Anemia, unspecified Status: Acute Assessment and Plan: Iron deficiency anemia, status post Venofer Plan DVT prophylaxis with Eliquis GI prophylaxis not indicated Code status full code Subjective Date/time seen: 10/02/22 17:22 Interval history: No overnight events noted. No chest pain or shortness of breath. No nausea, vomiting or diarrhea. No fevers or chills. No change from yesterday. No new complaints. Review of Systems Review of Systems: 12 point review of systems was assessed and was negative except as noted in the HPI Exam Narrative: General: No acute distress, alert and oriented per baseline HEENT: Atraumatic, normocephalic, mucous membranes moist CV: Regular rate and rhythm, S1, S2 Lungs: Clear to auscultation bilaterally, no rales or crackles noted, no wheezes, good air entry Abdomen: Soft, nontender, nondistended Extremities: Normal to inspection Skin: No rashes noted, no lesions or wounds seen Psych: Euthymic, normal affect Objective Data Vital Signs Vital Signs: Vital Signs - 24 hr 10/01/22 22:00 10/02/22 06:00 10/02/22 14:00 Temperature 97.2 F L 97.1 F L 97.0 F L Pulse Rate 71 73 70 Respiratory Rate 20 16 18 Blood Pressure 132/74 128/80 108/66 Pulse Oximetry 98 94 95 Intake/Output Intake/Output: Intake & Output 09/29/22 09/30/22 10/01/22 10/02/22 23:59 23:59 23:59 23:59 Intake Total 1450 1480 1360 1560 Output Total 275 2050 2200 1750 Balance 1175 -570 -840 -190 Meds/Results Medications: Active Medications Generic Name Dose Route Start Last Admin Trade Name Freq PRN Reason Stop Dose Admin Acetaminophen 650 mg 09/15/22 17:02 09/30/22 17:55 Acetaminophen 325 Mg Tablet PO 650 mg Q6H PRN Administration Mild Pain (1-3) or Fever Hydrocodone Bitart/Acetaminophen 1 tab 10/01/22 18:10 10/02/22 05:35 Hydrocodone/Acetaminophen (*Crx) 5-325 Mg Tablet PO 1 tab Q6H PRN Administration Pain Rated 4-6 Apixaban 5 mg 09/26/22 17:00 10/02/22 17:09 Apixaban 5 Mg Tablet PO 5 mg BID JOSE G Administration Aspirin 81 mg 09/16/22 09:00 10/02/22 09:33 Aspirin 81
[2022-10-02] MEDS: POTASSIUM CHLORIDE 20 MEQ TABLET 40 MEQ PO (18:47)
[2022-10-02] MEDS: TAMSULOSIN HCL 0.4 MG CAPSULE PO (21:23)
[2022-10-02 21:39] LABS: Albumin Pleural Fluid 0.9 g/dL
--- NOTE | 2022-10-02 21:52 | P.PNNP_ITS ---
Progress Note: A&P Assessment and Plan (1) ULISSES (acute kidney injury): Code(s): N17.9 - Acute kidney failure, unspecified Status: Acute Assessment and Plan: * acute kidney injury. * His baseline creatinine is normal * urine electrolytes pre renal. Ultrasound shows normal solitary kidney. CPK normal. * He does have peripheral eosinophilia. Today it is 9.6% * he is off the hydralazine and consider changing cefepime to a non cephalosporin/Penicillin. * Other possibilities for ULISSES include wound infection and possibly pneumonia * with the presence of these 2 and the decubitus ulcer, steroids would be unwise at this point. * creatinine is stable * continue IV diuretic until pt is discharged or creatinine rises. we can switch to PO when he is ready to go home. some of the improvement in the creatinine can occur as an outpatient. * he has swelling. * making urine with the bumex. * Creatinine is stable at 2.3 (2) Decubitus ulcer of sacral area: Code(s): L89.159 - Pressure ulcer of sacral region, unspecified stage Status: Acute Assessment and Plan: * as noted on admission * concerns for osteomyelitis but imaging negative * General Surgery and wound care following * s/p debridement * on antibiotic therapy (3) Hypertension: Code(s): I10 - Essential (primary) hypertension Status: Chronic Assessment and Plan: * systolic in the range below 130 * off hydralazine * allow bp to rise a little (4) Normocytic anemia: Code(s): D64.9 - Anemia, unspecified Status: Acute Assessment and Plan: * s/p PRBC transfusion * suspect due to extensive wounds * ULISSES may be contributing * Creatinine is very slowly improving. on epo (5) Physical debility: Code(s): R53.81 - Other malaise Status: Acute Assessment and Plan: * seems somewhat bed-bound * PT/OT as tolerated Subjective Date/time seen: 10/02/22 21:52 Interval history: pt lying flat in bed. feels okay. no sob or cp Exam Narrative: General: WD/WN elderly male in NAD Heart: normal S1 and S2; no rub or gallop Lungs: fairly clear Abdomen: soft, nontender, nondistended, positive bowel sounds Extremities: no cyanosis or clubbing; 1+ bilateral edema Skin: no rash Objective Data Vital Signs Vital Signs: Vital Signs - 24 hr 10/01/22 22:00 10/02/22 06:00 10/02/22 14:00 Temperature 97.2 F L 97.1 F L 97.0 F L Pulse Rate 71 73 70 Respiratory Rate 20 16 18 Blood Pressure 132/74 128/80 108/66 Pulse Oximetry 98 94 95 Intake/Output Intake/Output: Intake & Output 09/29/22 09/30/22 10/01/22 10/02/22 23:59 23:59 23:59 23:59 Intake Total 1450 1480 1360 1900 Output Total 275 2050 2200 3725 Balance 8415 -570 -840 -1825 Meds/Results Medications: Active Medications Generic Name Dose Route Start Last Admin Trade Name Freq PRN Reason Stop Dose Admin Acetaminophen 650 mg 09/15/22 17:02 09/30/22 17:55 Acetaminophen 325 Mg Tablet PO 650 mg Q6H PRN Administration Mild Pain (1-3) or Fever Hydrocodone Bitart/Acetaminophen 1 tab 10/01/22 18:10 10/02/22 21:45 Hydroco
--- NOTE | 2022-10-02 21:52 | PM.PNNEP ---
Progress Note: A&P Assessment and Plan (1) ULISSES (acute kidney injury): Code(s): N17.9 - Acute kidney failure, unspecified Status: Acute Assessment and Plan: acute kidney injury. His baseline creatinine is normal urine electrolytes pre renal. Ultrasound shows normal solitary kidney. CPK normal. He does have peripheral eosinophilia. Today it is 9.6% he is off the hydralazine and consider changing cefepime to a non cephalosporin/Penicillin. Other possibilities for ULISSES include wound infection and possibly pneumonia with the presence of these 2 and the decubitus ulcer, steroids would be unwise at this point. creatinine is stable continue IV diuretic until pt is discharged or creatinine rises. we can switch to PO when he is ready to go home. some of the improvement in the creatinine can occur as an outpatient. he has swelling. making urine with the bumex. Creatinine is stable at 2.3 (2) Decubitus ulcer of sacral area: Code(s): L89.159 - Pressure ulcer of sacral region, unspecified stage Status: Acute Assessment and Plan: as noted on admission concerns for osteomyelitis but imaging negative General Surgery and wound care following s/p debridement on antibiotic therapy (3) Hypertension: Code(s): I10 - Essential (primary) hypertension Status: Chronic Assessment and Plan: systolic in the range below 130 off hydralazine allow bp to rise a little (4) Normocytic anemia: Code(s): D64.9 - Anemia, unspecified Status: Acute Assessment and Plan: s/p PRBC transfusion suspect due to extensive wounds ULISSES may be contributing Creatinine is very slowly improving. on epo (5) Physical debility: Code(s): R53.81 - Other malaise Status: Acute Assessment and Plan: seems somewhat bed-bound PT/OT as tolerated Subjective Date/time seen: 10/02/22 21:52 Interval history: pt lying flat in bed. feels okay. no sob or cp Exam Narrative: General: WD/WN elderly male in NAD Heart: normal S1 and S2; no rub or gallop Lungs: fairly clear Abdomen: soft, nontender, nondistended, positive bowel sounds Extremities: no cyanosis or clubbing; 1+ bilateral edema Skin: no rash Objective Data Vital Signs Vital Signs: Vital Signs - 24 hr 10/01/22 22:00 10/02/22 06:00 10/02/22 14:00 Temperature 97.2 F L 97.1 F L 97.0 F L Pulse Rate 71 73 70 Respiratory Rate 20 16 18 Blood Pressure 132/74 128/80 108/66 Pulse Oximetry 98 94 95 Intake/Output Intake/Output: Intake & Output 09/29/22 09/30/22 10/01/22 10/02/22 23:59 23:59 23:59 23:59 Intake Total 1450 1480 1360 1900 Output Total 275 2050 2200 3725 Balance 2831 -785 -310 -6320 Meds/Results Medications: Active Medications Generic Name Dose Route Start Last Admin Trade Name Freq PRN Reason Stop Dose Admin Acetaminophen 650 mg 09/15/22 17:02 09/30/22 17:55 Acetaminophen 325 Mg Tablet PO 650 mg Q6H PRN Administration Mild Pain (1-3) or Fever Hydrocodone Bitart/Acetaminophen 1 tab 10/01/22 18:10 10/02/22 21:45 Hydrocodone/Acetaminophen (*Crx) 5-325 Mg Tablet PO 1 tab Q6H PRN Administration Pain Rated 4-6 Apixaban 5 mg 09/26/22 17:00 10/02/22 17:09 Apixaban 5 Mg Tablet PO 5 mg BID JOSE G Administration Aspirin 81 mg 09/16/22 09:00 10/02/22 09:33 Aspirin 81 Mg Chewable Tablet PO 81 mg DAILY JOSE G Administration Atorvastatin Calcium 20 mg 09/16/22 09:00 10/02/22 09:34 Atorvastatin 20 Mg Tablet PO 20 mg DAILY JOSE G Administration Bumetanide 2 mg 09/30/22 17:25 10/02/22 17:09 Bumetanide Inj 2.5 Mg/10 Ml Vial IV PUSH 2 mg BID JOSE G Administration Epoetin Aj-epbx 10,000 units 10/01/22 17:40 10/01/22 18:49 Epoetin Aj-Epbx 10,000 Units/Ml Vial SUB-Q 10,000 units MOWEFR JOSE G Administration Gabapentin 300 mg 09/15/22 18:50 10/02/22 17:
[2022-10-02 22:00] VITALS: BP 134/68; PULSE 77; RESP 18; TEMP 36.2; O2SAT 96
[2022-10-03] MEDS: metroNIDAZOLE 500 MG/ISO 100ML 500 MG/100 ML BAG 100 MG IVPB ×4 (00:42→17:50)
[2022-10-03 06:00] VITALS: BP 119/76; PULSE 64; RESP 18; TEMP 35.8; O2SAT 93
[2022-10-03 07:02] LABS: Basophils Absolute Auto 0.1 K/mm3 (0.0-0.1); Eosinophils Absolute Auto 0.6 K/mm3 (0-0.3); Eosinophils Percent Auto 10.2 % (0-4.4); Hematocrit 25.3 % (42.0-52.0); Hemoglobin 7.5 g/dL (14.0-18.0); Immature Granulocyte Absolute 0.06 K/mm3 (0.00-0.031); Lymphocytes Absolute Auto 1.22 K/mm3 (0.9-3.2); Lymphocytes Percent Auto 19.7 % (18.3-44.2); Mean Corpuscular HGB Conc 29.6 g/dl (32-36); Mean Corpuscular Hemoglobin 27.2 pg (26-34); Mean Corpuscular Volume 91.7 fl (80-100); Mean Platelet Volume 10.1 fl (7.4-10.4); Monocytes Absolute Auto 0.7 K/mm3 (0.1-0.6); Monocytes Percent Auto 10.8 % (2.6-8.5); Neutrophils Absolute Auto 3.6 K/mm3 (1.3-6.7); Neutrophils Percent Auto 57.3 % (45.5-73.1); Platelet Count Result 196 k/mm3 (150-375); Red Blood Count 2.76 M/mm3 (4.6-6.20); Red Cell Distribution Width 20.5 % (11.5-14.5); White Blood Count 6.2 K/mm3 (4.5-10.0)
[2022-10-03 07:40] LABS: Alanine Aminotransferase 19 U/L (6-50); Albumin Level 2.3 g/dL (3.5-5.1); Alkaline Phosphatase 73 U/L (38-126); Anion Gap 2 mmol/L (8-16); Aspartate Amino Transferase 15 U/L (17-59); Bilirubin,Total 0.4 mg/dL (0.2-1.3); Blood Urea Nitrogen 70 mg/dL (9-20); Calcium 8.2 mg/dL (8.4-10.2); Carbon Dioxide 28 mmol/L (22-30); Chloride 111 mmol/L (98-107); Estimated CRCL calculation 30 ml/min; Estimated Glomerular Filt Rate 28; Glucose 86 mg/dL (65-110); Phosphorus 3.3 mg/dL (2.5-4.5); Potassium 3.4 mmol/L (3.4-5.0); Sodium 141 mmol/L (137-145)
[2022-10-03] MEDS: ASPIRIN 81 MG CHEWABLE TABLET PO (09:15)
[2022-10-03] MEDS: BUMETANIDE INJ 2.5 MG/10 ML VIAL 2 MG IV PUSH ×2 (09:17→17:47)
[2022-10-03] MEDS: ATORVASTATIN 20 MG TABLET PO (09:18)
[2022-10-03 09:19] VITALS: PULSE 64
[2022-10-03] MEDS: METOPROLOL SUCCINATE EXT REL 25 MG TABCR PO ×2 (09:19→17:46)
[2022-10-03] MEDS: SODIUM CHLORIDE 1 GM TABLET PO (09:20)
[2022-10-03] MEDS: metOLazone 5 MG TABLET PO (09:20)
[2022-10-03] MEDS: GABAPENTIN 300 MG CAPSULE PO ×3 (09:20→17:46)
[2022-10-03] MEDS: APIXABAN 5 MG TABLET PO ×2 (09:21→17:46)
[2022-10-03 09:47] LABS: Platelet Estimate Adequate (Adequate); Schistocytes Rare (NORMAL)
[2022-10-03 09:50] LABS: Anisocytosis 1+ (NORMAL); Hypochromasia 1+ (NORMAL); Ovalocytes 1+ (NORMAL); Poikilocytosis 1+ (NORMAL)
[2022-10-03 09:51] LABS: Tear Drop Cells 1+ (NORMAL)
--- NOTE | 2022-10-03 10:51 | PM.DS ---
DS: Discharge Diagnosis Discharge Diagnosis (1) ULISSES (acute kidney injury): Code(s): N17.9 - Acute kidney failure, unspecified Status: Acute Assessment and Plan: appreciate nephrology consultation, unsure of etiology, likely multifactorial currently receiving bumex and zaroxylyn for diuresis d/t anasarca, improving d/c when ok with nephrology (2) Decubitus ulcer of sacral area: Code(s): L89.159 - Pressure ulcer of sacral region, unspecified stage Status: Acute Assessment and Plan: Okay to discharge back to nursing facility per general surgery with wound care, no signs of osteomyelitis in wound, on cefepime and Flagyl Appreciate wound care consult Day 13 of abx, started on 09/15/22 with vanc + cefepime, back to d/c abx tomorrow after 14 days (3) Chronic anticoagulation: Code(s): Z79.01 - buttermaker (current) use of anticoagulants Status: Acute Assessment and Plan: Continue Eliquis (4) Coronary artery disease: Code(s): I25.10 - Atherosclerotic heart disease of [place] coronary artery without angina pectoris Status: Acute Assessment and Plan: Continue aspirin, statin, and beta-dedra. (5) Obstructive sleep apnea: Code(s): G47.33 - Obstructive sleep apnea (adult) (pediatric) Status: Acute Assessment and Plan: CPAP will be provided for the patient to use while hospitalized. (6) Physical debility: Code(s): R53.81 - Other malaise Status: Acute Assessment and Plan: Plan is for rehab/nursing facility at discharge (7) Hypertension: Code(s): I10 - Essential (primary) hypertension Status: Chronic Assessment and Plan: Blood pressures were reviewed and they are stable. (8) Normocytic anemia: Code(s): D64.9 - Anemia, unspecified Status: Acute Assessment and Plan: Iron deficiency anemia, status post Venofer Plan DVT prophylaxis with Eliquis GI prophylaxis not indicated Code status full code DS: Summary Time Spent with Patient Time attestation: Total time spent providing and/or coordinating discharge services: Exam Narrative: General: No acute distress, alert and oriented per baseline HEENT: Atraumatic, normocephalic, mucous membranes moist CV: Regular rate and rhythm, S1, S2 Lungs: Clear to auscultation bilaterally, no rales or crackles noted, no wheezes, good air entry Abdomen: Soft, nontender, nondistended Extremities: Normal to inspection Skin: No rashes noted, no lesions or wounds seen Psych: Euthymic, normal affect DS: Data Data Completed and Pending Labs on day of discharge: Labs from last 24 hours 10/03/22 10/03/22 09/28/22 06:46 06:46 15:02 WBC 6.2 RBC 2.76 L Hgb 7.5 L Hct 25.3 L MCV 91.7 MCH 27.2 MCHC 29.6 L RDW 20.5 H Plt Count 196 MPV 10.1 Immature Gran % (Auto) 1.0 H Neut % (Auto) 57.3 Lymph % (Auto) 19.7 Phelps % (Auto) 10.8 H Eos % (Auto) 10.2 H Baso % (Auto) 1.0 Lymph # (Auto) 1.22 [place]helps # (Auto) 0.7 H Eos # (Auto) 0.6 H Baso # (Auto) 0.1 Abs Immat Gran (auto) 0.06 H Absolute Neuts (auto) 3.6 Absolute Nucleated RBC 0.0 Nucleated RBC % 0.0 Platelet Estimate Adequate Hypochromasia 1+ Poikilocytosis 1+ Anisocytosis 1+ Tear Drop Cells 1+ Ovalocytes 1+ Schistocytes Rare Sodium 141 Potassium 3.4 Chloride 111 H Carbon Dioxide 28 Anion Gap 2 L BUN 70 H Creatinine 2.30 H Estim Creat Clear Calc 30 Estimated GFR 28 L Glucose 86 Calcium 8.2 L Phosphorus 3.3 Total Bilirubin 0.4 AST 15 L ALT 19 Alkaline Phosphatase 73 Total Protein 5.0 L Albumin 2.3 L Ur Random Creatinine Ur Random Chloride U Random Chloride/Creat Pleural Albumin 0.9 09/27/22 08:54 WBC RBC Hgb Hct MCV MCH MCHC RDW Plt Count MPV Immature Gran % (Auto) N
--- NOTE | 2022-10-03 10:54 | PCNFU ---
Nutrition Follow-Up Complete: Unintentional weight loss related to reduced appetite and intake as evidenced by pt report Goal:Meet estimated needs. Pt is at goal. Continue with same goal Pt current nutrition is Heart healthy, DARIAN BID, Ensure compact BID. Nutrition recommendation: Continue with current plan of care. 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 Continue to encourage good intake of meals and supplements. Monitor for diet order, intake, wt, labs, skin. Follow up in 7 days.
[2022-10-03] MEDS: SILVERGEL (ELTA) 45 ML 1 APPLIC TOPICAL ×2 (12:05→12:13)
--- NOTE | 2022-10-03 12:43 | P.PNNP_ITS ---
Progress Note: A&P Assessment and Plan (1) ULISSES (acute kidney injury): Code(s): N17.9 - Acute kidney failure, unspecified Status: Acute Assessment and Plan: * acute kidney injury. * His baseline creatinine is normal * urine electrolytes pre renal. Ultrasound shows normal solitary kidney. CPK normal. * He does have peripheral eosinophilia. Today it is 9.6% * he is off the hydralazine and consider changing cefepime to a non cephalosporin/Penicillin. * Other possibilities for ULISSES include wound infection and possibly pneumonia * with the presence of these 2 and the decubitus ulcer, steroids would be unwise at this point. * creatinine is stable but not improving * notably he only has 1 kidney. 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 * He has a high fluid burden. * continue IV diuretic until pt is discharged or creatinine rises. we can switch to PO when he is ready to go home. some of the improvement in the creatinine can occur as an outpatient. * he has swelling. * making urine with the bumex. * Creatinine is stable at 2.3 (2) Decubitus ulcer of sacral area: Code(s): L89.159 - Pressure ulcer of sacral region, unspecified stage Status: Acute Assessment and Plan: * as noted on admission * concerns for osteomyelitis but imaging negative * General Surgery and wound care following * s/p debridement * on antibiotic therapy (3) Hypertension: Code(s): I10 - Essential (primary) hypertension Status: Chronic Assessment and Plan: * systolic Ranging 115-134 * off hydralazine * allow bp to rise a little due to a KI (4) Normocytic anemia: Code(s): D64.9 - Anemia, unspecified Status: Acute Assessment and Plan: * s/p PRBC transfusion * suspect due to extensive wounds * ULISSES may be contributing * Creatinine is very slowly improving. on epo (5) Physical debility: Code(s): R53.81 - Other malaise Status: Acute Assessment and Plan: * seems somewhat bed-bound * PT/OT as tolerated Subjective Date/time seen: 10/03/22 12:43 Interval history: pt lying flat in bed. Eating pretty well. No chest pain or shortness of breath Exam Narrative: General: WD/WN elderly male in NAD Heart: normal S1 and S2; no rub or gallop Lungs: fairly clear bilaterally Abdomen: soft, nontender, nondistended, positive bowel sounds Extremities: no cyanosis or clubbing; 1+ bilateral edema Skin: no rash or subcu nodules Objective Data Vital Signs Vital Signs: Vital Signs - 24 hr 10/02/22 14:00 10/02/22 22:00 10/03/22 06:00 Temperature 97.0 F L 97.1 F L 96.4 F L Pulse Rate 70 77 64 Respiratory Rate 18 18 18 Blood Pressure 108/66 134/68 119/76 Pulse Oximetry 95 96 93 10/03/22 09:19 Temperature Pulse Rate 64 Respiratory Rate Blood Pressure Pulse Oximetry Intake/Output Intake/Output: Intake & Output 09/30/22 10/01/22 10/02/22 10/03/22 23:59 23:59 23:59 23:59 Intake Total 1480 1360 2000 940 Output Total 2050 2200 1368 1877 Balance -570 -840 -1725 -935 Meds/Results Medications:
--- NOTE | 2022-10-03 12:43 | PM.PNNEP ---
Progress Note: A&P Assessment and Plan (1) ULISSES (acute kidney injury): Code(s): N17.9 - Acute kidney failure, unspecified Status: Acute Assessment and Plan: acute kidney injury. His baseline creatinine is normal urine electrolytes pre renal. Ultrasound shows normal solitary kidney. CPK normal. He does have peripheral eosinophilia. Today it is 9.6% he is off the hydralazine and consider changing cefepime to a non cephalosporin/Penicillin. Other possibilities for ULISSES include wound infection and possibly pneumonia with the presence of these 2 and the decubitus ulcer, steroids would be unwise at this point. creatinine is stable but not improving notably he only has 1 kidney. 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. He has a high fluid burden. continue IV diuretic until pt is discharged or creatinine rises. we can switch to PO when he is ready to go home. some of the improvement in the creatinine can occur as an outpatient. he has swelling. making urine with the bumex. Creatinine is stable at 2.3 (2) Decubitus ulcer of sacral area: Code(s): L89.159 - Pressure ulcer of sacral region, unspecified stage Status: Acute Assessment and Plan: as noted on admission concerns for osteomyelitis but imaging negative General Surgery and wound care following s/p debridement on antibiotic therapy (3) Hypertension: Code(s): I10 - Essential (primary) hypertension Status: Chronic Assessment and Plan: systolic Ranging 115-134 off hydralazine allow bp to rise a little due to a KI (4) Normocytic anemia: Code(s): D64.9 - Anemia, unspecified Status: Acute Assessment and Plan: s/p PRBC transfusion suspect due to extensive wounds ULISSES may be contributing Creatinine is very slowly improving. on epo (5) Physical debility: Code(s): R53.81 - Other malaise Status: Acute Assessment and Plan: seems somewhat bed-bound PT/OT as tolerated Subjective Date/time seen: 10/03/22 12:43 Interval history: pt lying flat in bed. Eating pretty well. No chest pain or shortness of breath Exam Narrative: General: WD/WN elderly male in NAD Heart: normal S1 and S2; no rub or gallop Lungs: fairly clear bilaterally Abdomen: soft, nontender, nondistended, positive bowel sounds Extremities: no cyanosis or clubbing; 1+ bilateral edema Skin: no rash or subcu nodules Objective Data Vital Signs Vital Signs: Vital Signs - 24 hr 10/02/22 14:00 10/02/22 22:00 10/03/22 06:00 Temperature 97.0 F L 97.1 F L 96.4 F L Pulse Rate 70 77 64 Respiratory Rate 18 18 18 Blood Pressure 108/66 134/68 119/76 Pulse Oximetry 95 96 93 10/03/22 09:19 Temperature Pulse Rate 64 Respiratory Rate Blood Pressure Pulse Oximetry Intake/Output Intake/Output: Intake & Output 09/30/22 10/01/22 10/02/22 10/03/22 23:59 23:59 23:59 23:59 Intake Total 1480 1360 2000 940 Output Total 2050 2206 0946 1875 Balance -570 -840 -1725 -935 Meds/Results Medications: Active Medications Generic Name Dose Route Start Last Admin Trade Name Freq PRN Reason Stop Dose Admin Acetaminophen 650 mg 09/15/22 17:02 09/30/22 17:55 Acetaminophen 325 Mg Tablet PO 650 mg Q6H PRN Administration Mild Pain (1-3) or Fever Hydrocodone Bitart/Acetaminophen 1 tab 10/01/22 18:10 10/02/22 21:45 Hydrocodone/Acetaminophen (*Crx) 5-325 Mg Tablet PO 1 tab Q6H PRN Administration Pain Rated 4-6 Apixaban 5 mg 09/26/22 17:00 10/03/22 09:21 Apixaban 5 Mg Tablet PO 5 mg BID JOSE G Administration Aspirin 81 mg 09/16/22 09:00 10/03/22 09:15 Aspirin 81 Mg Chewable Tablet PO 81 mg DAILY JOSE G Administration Atorvastatin Calcium 20 mg 09/16/22 09:00 10/03/22 09:18 Atorvastatin 20 Mg Tablet PO 20 mg
--- NOTE | 2022-10-03 14:17 | PC.NURSE ---
Pt was taken off unit for renal flow function test. Left at 1405. Will continue meds when patient is back on unit.
--- NOTE | 2022-10-03 14:48 | PC.NURSE ---
Patient has returned to inpatient unit from testing.
[2022-10-03 16:09] VITALS: BP 109/62; PULSE 64; RESP 18; TEMP 36.7; O2SAT 90
[2022-10-03 16:15] LABS: Glucose Pleural Fluid 83 mg/dL
--- NOTE | 2022-10-03 17:29 | PC.NURSE ---
Spoke with care coordination who states that patient does not have retirement placement after hospital discharge. Current retirement is refusing to take patient. Care coordination has made multiple calls and will continue to find placement tomorrow morning. Informed Dr. Robertson at 1730 and cancelled discharge order.
[2022-10-03 17:46] VITALS: PULSE 64
[2022-10-03] MEDS: EPOETIN ALFA-EPBX 10,000 UNITS/ML VIAL 10000 UNITS SUB-Q (17:47)
--- NOTE | 2022-10-03 20:10 | PM.IMPN ---
Progress Note: A&P Assessment and Plan (1) ULISSES (acute kidney injury): Code(s): N17.9 - Acute kidney failure, unspecified Status: Acute Assessment and Plan: appreciate nephrology consultation, unsure of etiology, likely multifactorial currently receiving bumex and zaroxylyn for diuresis d/t anasarca, improving d/c when ok with nephrology (2) Decubitus ulcer of sacral area: Code(s): L89.159 - Pressure ulcer of sacral region, unspecified stage Status: Acute Assessment and Plan: Okay to discharge back to nursing facility per general surgery with wound care, no signs of osteomyelitis in wound, on cefepime and Flagyl Appreciate wound care consult Today was day 14 of vancomycin and cefepime, will discontinue after today's dose (3) Chronic anticoagulation: Code(s): Z79.01 - 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 (5) Obstructive sleep apnea: Code(s): G47.33 - Obstructive sleep apnea (adult) (pediatric) Status: Acute Assessment and Plan: CPAP will be provided for the patient to use while hospitalized. (6) Physical debility: Code(s): R53.81 - Other malaise Status: Acute Assessment and Plan: Plan is for rehab/nursing facility at discharge (7) Hypertension: Code(s): I10 - Essential (primary) hypertension Status: Chronic Assessment and Plan: Blood pressures were reviewed and they are stable. (8) Normocytic anemia: Code(s): D64.9 - Anemia, unspecified Status: Acute Assessment and Plan: Iron deficiency anemia, status post Venofer Plan DVT prophylaxis with Eliquis GI prophylaxis not indicated Code status full code Subjective Date/time seen: 10/03/22 20:10 Interval history: No overnight events noted. No chest pain or shortness of breath. No nausea, vomiting or diarrhea. No fevers or chills. No change from yesterday. No new complaints. Review of Systems Review of Systems: 12 point review of systems was assessed and was negative except as noted in the HPI Exam Narrative: General: No acute distress, alert and oriented per baseline HEENT: Atraumatic, normocephalic, mucous membranes moist CV: Regular rate and rhythm, S1, S2 Lungs: Clear to auscultation bilaterally, no rales or crackles noted, no wheezes, good air entry Abdomen: Soft, nontender, nondistended Extremities: Normal to inspection Skin: No rashes noted, no lesions or wounds seen Psych: Dysthymic Objective Data Vital Signs Vital Signs: Vital Signs - 24 hr 10/02/22 22:00 10/03/22 06:00 10/03/22 09:19 Temperature 97.1 F L 96.4 F L Pulse Rate 77 64 64 Respiratory Rate 18 18 Blood Pressure 134/68 119/76 Pulse Oximetry 96 93 Oxygen Delivery 10/03/22 09:21 10/03/22 16:09 10/03/22 17:46 Temperature 98.1 F Pulse Rate 64 64 Respiratory Rate 18 Blood Pressure 109/62 Pulse Oximetry 90 Oxygen Delivery Room Air Intake/Output Intake/Output: Intake & Output 09/30/22 10/01/22 10/02/22 10/03/22 23:59 23:59 23:59 23:59 Intake Total 1480 1360 2000 1330 Output Total 2050 2200 8065 7934 [facility] -[phone] Meds/Results Medications: Active Medications Generic Name Dose Route Start Last Admin Trade Name Freq PRN Reason Stop Dose Admin Acetaminophen 650 mg 09/15/22 17:02 09/30/22 17:55 Acetaminophen 325 Mg Tablet PO 650 mg Q6H PRN Administration Mild Pain (1-3) or Fever Hydrocodone Bitart/Acetaminophen 1 tab 10/01/22 18:10 10/02/22 21:45 Hydrocodone/Acetaminophen (*Crx) 5-325 Mg Tablet PO 1 tab Q6H PRN Administration Pain Rated 4-6
[2022-10-03 20:20] VITALS: PULSE 64; RESP 18; O2SAT 90
[2022-10-03] MEDS: TAMSULOSIN HCL 0.4 MG CAPSULE PO (21:43)
[2022-10-03 22:00] VITALS: BP 111/74; PULSE 67; RESP 18; TEMP 36.8; O2SAT 94
[2022-10-04] MEDS: metroNIDAZOLE 500 MG/ISO 100ML 500 MG/100 ML BAG 100 MG IVPB ×2 (00:46→05:46)
[2022-10-04 06:00] VITALS: BP 95/60; PULSE 70; RESP 18; TEMP 36.1; O2SAT 93
[2022-10-04 06:44] LABS: Basophils Absolute Auto 0.1 K/mm3 (0.0-0.1); Basophils Percent Auto 1.1 % (0.2-1.2); Eosinophils Absolute Auto 0.6 K/mm3 (0-0.3); Eosinophils Percent Auto 9.3 % (0-4.4); Hematocrit 28.9 % (42.0-52.0); Hemoglobin 8.4 g/dL (14.0-18.0); Immature Granulocyte Absolute 0.06 K/mm3 (0.00-0.031); Immature Granulocyte Percent A 0.9 % (0-0.5); Lymphocytes Absolute Auto 1.16 K/mm3 (0.9-3.2); Lymphocytes Percent Auto 18.4 % (18.3-44.2); Mean Corpuscular HGB Conc 29.1 g/dl (32-36); Mean Corpuscular Hemoglobin 27.6 pg (26-34); Mean Corpuscular Volume 95.1 fl (80-100); Mean Platelet Volume 11.2 fl (7.4-10.4); Monocytes Absolute Auto 0.6 K/mm3 (0.1-0.6); Monocytes Percent Auto 8.9 % (2.6-8.5); Neutrophils Absolute Auto 3.9 K/mm3 (1.3-6.7); Neutrophils Percent Auto 61.4 % (45.5-73.1); Platelet Count Result 210 k/mm3 (150-375); Red Blood Count 3.04 M/mm3 (4.6-6.20); Red Cell Distribution Width 21.2 % (11.5-14.5); White Blood Count 6.3 K/mm3 (4.5-10.0)
[2022-10-04 07:00] LABS: Alanine Aminotransferase 16 U/L (6-50); Albumin Level 2.4 g/dL (3.5-5.1); Alkaline Phosphatase 68 U/L (38-126); Anion Gap 3 mmol/L (8-16); Aspartate Amino Transferase 15 U/L (17-59); Bilirubin,Total 0.4 mg/dL (0.2-1.3); Blood Urea Nitrogen 69 mg/dL (9-20); Calcium 8.4 mg/dL (8.4-10.2); Carbon Dioxide 30 mmol/L (22-30); Chloride 103 mmol/L (98-107); Estimated CRCL calculation 31 ml/min; Estimated Glomerular Filt Rate 30; Glucose 91 mg/dL (65-110); Potassium 2.9 mmol/L (3.4-5.0); Sodium 136 mmol/L (137-145)
[2022-10-04 07:56] LABS: Acanthocytes 1+ (NORMAL); Burr Cells 1+ (NORMAL); Ovalocytes 1+ (NORMAL); Platelet Estimate Adequate (Adequate); Schistocytes None Seen (NORMAL)
--- NOTE | 2022-10-04 08:28 | P.PNNP_ITS ---
Progress Note: A&P Assessment and Plan (1) ULISSES (acute kidney injury): Code(s): N17.9 - Acute kidney failure, unspecified Status: Acute Assessment and Plan: * acute kidney injury. * His baseline creatinine is normal * urine electrolytes pre renal. Ultrasound shows normal solitary kidney. CPK normal. * He does have peripheral eosinophilia. Today it is 9.6% * he is off the hydralazine and consider changing cefepime to a non cephalosporin/Penicillin. I reached out to Dr. Robertson * Other possibilities for ULISSES include wound infection and possibly pneumonia * Renal scan shows the 1 kidney with uptake but poor excretion. This is more consistent with ATN. * creatinine is stable but not improving . This is probably because of the ATN. It could also be because we are diuresing him or because of the eosinophils? * Will continue diuretics for now since he has the swelling. * * he has swelling. * making urine with the bumex. * Creatinine is stable at 2.3 (2) Decubitus ulcer of sacral area: Code(s): L89.159 - Pressure ulcer of sacral region, unspecified stage Status: Acute Assessment and Plan: * as noted on admission * concerns for osteomyelitis but imaging negative * General Surgery and wound care following * s/p debridement * on antibiotics (3) Hypertension: Code(s): I10 - Essential (primary) hypertension Status: Chronic Assessment and Plan: * Blood pressure looks well controlled (4) Normocytic anemia: Code(s): D64.9 - Anemia, unspecified Status: Acute Assessment and Plan: * hemoglobin up to 8.4. * He is getting Epogen (5) Physical debility: Code(s): R53.81 - Other malaise Status: Acute Assessment and Plan: * seems somewhat bed-bound * PT/OT as tolerated Subjective Date/time seen: 10/04/22 08:28 Interval history: pt lying flat in bed. Feeling okay. Eating well Exam Narrative: General: WD/WN elderly male in NAD Heart: normal S1 and S2; no rub or gallop Lungs: clear to auscultation Abdomen: soft, nontender, nondistended, positive bowel sounds Extremities: no cyanosis or clubbing; 1+ bilateral edema Skin: no rash Objective Data Vital Signs Vital Signs: Vital Signs - 24 hr 10/03/22 09:19 10/03/22 09:21 10/03/22 16:09 Temperature 98.1 F Pulse Rate 64 64 Respiratory Rate 18 Blood Pressure 109/62 Pulse Oximetry 90 Oxygen Delivery Room Air 10/03/22 17:46 10/03/22 20:20 10/03/22 22:00 Temperature 98.3 F Pulse Rate 64 64 67 Respiratory Rate 18 18 Blood Pressure 111/74 Pulse Oximetry 90 94 Oxygen Delivery Room Air 10/04/22 06:00 Temperature 96.9 F L Pulse Rate 70 Respiratory Rate 18 Blood Pressure 95/60 L Pulse Oximetry 93 Oxygen Delivery Intake/Output Intake/Output: Intake & Output 10/01/22 10/02/22 10/03/22 10/04/22 23:59 23:59 23:59 23:59 Intake Total 1360 2000 1730 1060 Output Total 2200 4901 8612 [id number] [facility] -[phone] Meds/Results Medications:
--- NOTE | 2022-10-04 08:28 | PM.PNNEP ---
Progress Note: A&P Assessment and Plan (1) ULISSES (acute kidney injury): Code(s): N17.9 - Acute kidney failure, unspecified Status: Acute Assessment and Plan: acute kidney injury. His baseline creatinine is normal urine electrolytes pre renal. Ultrasound shows normal solitary kidney. CPK normal. He does have peripheral eosinophilia. Today it is 9.6% he is off the hydralazine and consider changing cefepime to a non cephalosporin/Penicillin. I reached out to Dr. Robertson Other possibilities for ULISSES include wound infection and possibly pneumonia Renal scan shows the 1 kidney with uptake but poor excretion. This is more consistent with ATN. creatinine is stable but not improving . This is probably because of the ATN. It could also be because we are diuresing him or because of the eosinophils? Will continue diuretics for now since he has the swelling. he has swelling. making urine with the bumex. Creatinine is stable at 2.3 (2) Decubitus ulcer of sacral area: Code(s): L89.159 - Pressure ulcer of sacral region, unspecified stage Status: Acute Assessment and Plan: as noted on admission concerns for osteomyelitis but imaging negative General Surgery and wound care following s/p debridement on antibiotics (3) Hypertension: Code(s): I10 - Essential (primary) hypertension Status: Chronic Assessment and Plan: Blood pressure looks well controlled (4) Normocytic anemia: Code(s): D64.9 - Anemia, unspecified Status: Acute Assessment and Plan: hemoglobin up to 8.4. He is getting Epogen (5) Physical debility: Code(s): R53.81 - Other malaise Status: Acute Assessment and Plan: seems somewhat bed-bound PT/OT as tolerated Subjective Date/time seen: 10/04/22 08:28 Interval history: pt lying flat in bed. Feeling okay. Eating well Exam Narrative: General: WD/WN elderly male in NAD Heart: normal S1 and S2; no rub or gallop Lungs: clear to auscultation Abdomen: soft, nontender, nondistended, positive bowel sounds Extremities: no cyanosis or clubbing; 1+ bilateral edema Skin: no rash Objective Data Vital Signs Vital Signs: Vital Signs - 24 hr 10/03/22 09:19 10/03/22 09:21 10/03/22 16:09 Temperature 98.1 F Pulse Rate 64 64 Respiratory Rate 18 Blood Pressure 109/62 Pulse Oximetry 90 Oxygen Delivery Room Air 10/03/22 17:46 10/03/22 20:20 10/03/22 22:00 Temperature 98.3 F Pulse Rate 64 64 67 Respiratory Rate 18 18 Blood Pressure 111/74 Pulse Oximetry 90 94 Oxygen Delivery Room Air 10/04/22 06:00 Temperature 96.9 F L Pulse Rate 70 Respiratory Rate 18 Blood Pressure 95/60 L Pulse Oximetry 93 Oxygen Delivery Intake/Output Intake/Output: Intake & Output 10/01/22 10/02/22 10/03/22 10/04/22 23:59 23:59 23:59 23:59 Intake Total 1360 2000 1730 1060 Output Total 2200 1197 4002 9011 [facility] -[phone] Meds/Results Medications: Active Medications Generic Name Dose Route Start Last Admin Trade Name Freq PRN Reason Stop Dose Admin Acetaminophen 650 mg 09/15/22 17:02 09/30/22 17:55 Acetaminophen 325 Mg Tablet PO 650 mg Q6H PRN Administration Mild Pain (1-3) or Fever Hydrocodone Bitart/Acetaminophen 1 tab 10/01/22 18:10 10/02/22 21:45 Hydrocodone/Acetaminophen (*Crx) 5-325 Mg Tablet PO 1 tab Q6H PRN Administration Pain Rated 4-6 Apixaban 5 mg 09/26/22 17:00 10/03/22 17:46 Apixaban 5 Mg Tablet PO 5 mg BID JOSE G Administration Aspirin 81 mg 09/16/22 09:00 10/03/22 09:15 Aspirin 81 Mg Chewable Tablet PO 81 mg DAILY JOSE G Administration Atorvastatin Calcium 20 mg 09/16/22 09:00 10/03/22 09:18 Atorvastatin 20 Mg Tablet PO 20 mg DAILY JOSE G Administration Bumetanide 2 mg 09/30/22 17:25 10/03/22 17:47 Bumetanide Inj 2.5 Mg/10
[2022-10-04] MEDS: POTASSIUM CHLORIDE 20 MEQ TABLET 40 MEQ PO ×3 (08:48→21:04)
[2022-10-04 08:49] VITALS: PULSE 80
[2022-10-04] MEDS: SILVERGEL (ELTA) 45 ML 1 APPLIC TOPICAL (08:49)
[2022-10-04] MEDS: ASPIRIN 81 MG CHEWABLE TABLET PO (08:49)
[2022-10-04] MEDS: APIXABAN 5 MG TABLET PO ×2 (08:49→16:23)
[2022-10-04] MEDS: METOPROLOL SUCCINATE EXT REL 25 MG TABCR PO ×2 (08:49→16:23)
[2022-10-04] MEDS: ATORVASTATIN 20 MG TABLET PO (08:49)
[2022-10-04] MEDS: GABAPENTIN 300 MG CAPSULE PO ×3 (08:49→16:23)
[2022-10-04] MEDS: BUMETANIDE INJ 2.5 MG/10 ML VIAL 2 MG IV PUSH ×2 (08:49→16:23)
[2022-10-04] MEDS: SODIUM CHLORIDE 1 GM TABLET PO (08:49)
--- NOTE | 2022-10-04 10:11 | PM.IMPN ---
Progress Note: A&P Assessment and Plan (1) ULISSES (acute kidney injury): Code(s): N17.9 - Acute kidney failure, unspecified Status: Acute Assessment and Plan: appreciate nephrology consultation, unsure of etiology, likely multifactorial currently receiving bumex and zaroxylyn for diuresis d/t anasarca, improving d/c when ok with nephrology (2) Decubitus ulcer of sacral area: Code(s): L89.159 - Pressure ulcer of sacral region, unspecified stage Status: Acute Assessment and Plan: Okay to discharge back to nursing facility per general surgery with wound care, no signs of osteomyelitis in wound, on cefepime and Flagyl Appreciate wound care consult Antibiotics discontinued after completing a 14 day course (3) Chronic anticoagulation: 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 (5) Obstructive sleep apnea: Code(s): G47.33 - Obstructive sleep apnea (adult) (pediatric) Status: Acute Assessment and Plan: CPAP will be provided for the patient to use while hospitalized. (6) Physical debility: Code(s): R53.81 - Other malaise Status: Acute Assessment and Plan: Plan is for rehab/nursing facility at discharge (7) Hypertension: Code(s): I10 - Essential (primary) hypertension Status: Chronic Assessment and Plan: Blood pressures were reviewed and they are stable. (8) Normocytic anemia: Code(s): D64.9 - Anemia, unspecified Status: Acute Assessment and Plan: Iron deficiency anemia, status post Venofer (9) Major depressive disorder: Code(s): F32.9 - Major depressive disorder, single episode, unspecified Status: Acute Assessment and Plan: Initiate Lexapro 10 mg daily Plan DVT prophylaxis with Eliquis GI prophylaxis not indicated Code status full code Subjective Date/time seen: 10/04/22 10:11 Interval history: No overnight events noted. No chest pain or shortness of breath. No nausea, vomiting or diarrhea. No fevers or chills. Review of Systems Review of Systems: 12 point review of systems was assessed and was negative except as noted in the HPI Exam Narrative: General: No acute distress, alert and oriented per baseline HEENT: Atraumatic, normocephalic, mucous membranes moist CV: Regular rate and rhythm, S1, S2 Lungs: Clear to auscultation bilaterally, no rales or crackles noted, no wheezes, good air entry Abdomen: Soft, nontender, nondistended Extremities: Normal to inspection Skin: No rashes noted, no lesions or wounds seen Psych: Dysthymic Objective Data Vital Signs Vital Signs: Vital Signs - 24 hr 10/03/22 16:09 10/03/22 17:46 10/03/22 20:20 Temperature 98.1 F Pulse Rate 64 64 64 Respiratory Rate 18 18 Blood Pressure 109/62 Pulse Oximetry 90 90 Oxygen Delivery Room Air 10/03/22 22:00 10/04/22 06:00 10/04/22 08:49 Temperature 98.3 F 96.9 F L Pulse Rate 67 70 80 Respiratory Rate 18 18 Blood Pressure 111/74 95/60 L Pulse Oximetry 94 93 Oxygen Delivery 10/04/22 08:00 Temperature Pulse Rate Respiratory Rate Blood Pressure Pulse Oximetry Oxygen Delivery Room Air Intake/Output Intake/Output: Intake & Output 10/01/22 10/02/22 10/03/22 10/04/22 23:59 23:59 23:59 23:59 Intake Total 1360 2000 1730 1300 Output Total 2200 7377 7190 7359 [facility] -840 -1725 -1645 -1525 Meds/Results Medications: Active Medications Generic Name Dose Route Start Last Admin Trade Name Vinod PRN Reason Stop Dose Admin Acetaminophen 650 mg 09/15/22 17:02 09/30/22 17:55 Acetaminophen 325 Mg Tablet PO
[2022-10-04] MEDS: ESCITALOPRAM OXALATE 10 MG TABLET PO (12:35)
[2022-10-04 14:00] VITALS: BP 100/49; PULSE 88; RESP 18; TEMP 36.2; O2SAT 90
[2022-10-04 16:23] VITALS: PULSE 84
[2022-10-04 19:10] LABS: Potassium 3.4 mmol/L (3.4-5.0)
[2022-10-04 20:22] LABS: LDH Pleural Fluid 68 U/L; Total Protein Pleural Fluid <3.0 g/dL
[2022-10-04 20:57] LABS: Amylase, Pleural Fluid 12 U/L
[2022-10-04] MEDS: TAMSULOSIN HCL 0.4 MG CAPSULE PO (21:04)
[2022-10-04 22:00] VITALS: BP 112/65; PULSE 68; RESP 20; TEMP 36.6; O2SAT 96
[2022-10-05 05:30] VITALS: BP 109/62; PULSE 78; RESP 18; TEMP 36.9; O2SAT 90
[2022-10-05] MEDS: HYDROcodone/acetaminophen (*CRX) 5-325 MG TABLET 1 TAB PO ×2 (06:30→22:20)
[2022-10-05 07:02] LABS: Basophils Absolute Auto 0.1 K/mm3 (0.0-0.1); Basophils Percent Auto 0.9 % (0.2-1.2); Eosinophils Absolute Auto 0.5 K/mm3 (0-0.3); Eosinophils Percent Auto 7.4 % (0-4.4); Hematocrit 28.5 % (42.0-52.0); Hemoglobin 8.3 g/dL (14.0-18.0); Immature Granulocyte Absolute 0.05 K/mm3 (0.00-0.031); Immature Granulocyte Percent A 0.7 % (0-0.5); Lymphocytes Absolute Auto 1.32 K/mm3 (0.9-3.2); Lymphocytes Percent Auto 19.5 % (18.3-44.2); Mean Corpuscular HGB Conc 29.1 g/dl (32-36); Mean Corpuscular Hemoglobin 27.2 pg (26-34); Mean Corpuscular Volume 93.4 fl (80-100); Mean Platelet Volume 11.2 fl (7.4-10.4); Monocytes Absolute Auto 0.6 K/mm3 (0.1-0.6); Neutrophils Absolute Auto 4.2 K/mm3 (1.3-6.7); Neutrophils Percent Auto 62.5 % (45.5-73.1); Platelet Count Result 213 k/mm3 (150-375); Red Blood Count 3.05 M/mm3 (4.6-6.20); Red Cell Distribution Width 21.5 % (11.5-14.5); White Blood Count 6.8 K/mm3 (4.5-10.0)
[2022-10-05 07:18] LABS: Alanine Aminotransferase 15 U/L (6-50); Albumin Level 2.5 g/dL (3.5-5.1); Alkaline Phosphatase 71 U/L (38-126); Anion Gap 3 mmol/L (8-16); Aspartate Amino Transferase 15 U/L (17-59); Bilirubin,Total 0.4 mg/dL (0.2-1.3); Blood Urea Nitrogen 70 mg/dL (9-20); Calcium 8.5 mg/dL (8.4-10.2); Carbon Dioxide 32 mmol/L (22-30); Chloride 104 mmol/L (98-107); Estimated CRCL calculation 31 ml/min; Estimated Glomerular Filt Rate 30; Glucose 89 mg/dL (65-110); Phosphorus 2.8 mg/dL (2.5-4.5); Potassium 3.4 mmol/L (3.4-5.0); Sodium 139 mmol/L (137-145)
[2022-10-05 07:47] LABS: Anisocytosis 1+ (NORMAL); Platelet Estimate Adequate (Adequate)
[2022-10-05 07:50] LABS: Acanthocytes 1+ (NORMAL); Hypochromasia 1+ (NORMAL); Ovalocytes 1+ (NORMAL); Schistocytes None Seen (NORMAL)
[2022-10-05 07:51] LABS: Tear Drop Cells 1+ (NORMAL)
[2022-10-05] MEDS: POTASSIUM CHLORIDE 20 MEQ TABLET.ER 40 MEQ PO (08:50)
[2022-10-05] MEDS: ASPIRIN 81 MG CHEWABLE TABLET PO (08:50)
[2022-10-05] MEDS: GABAPENTIN 300 MG CAPSULE PO ×3 (08:50→16:51)
[2022-10-05] MEDS: ESCITALOPRAM OXALATE 10 MG TABLET PO (08:50)
[2022-10-05] MEDS: ATORVASTATIN 20 MG TABLET PO (08:50)
[2022-10-05] MEDS: SODIUM CHLORIDE 1 GM TABLET PO (08:50)
[2022-10-05 08:51] VITALS: PULSE 68
[2022-10-05] MEDS: METOPROLOL SUCCINATE EXT REL 25 MG TABCR PO ×2 (08:51→16:51)
[2022-10-05] MEDS: APIXABAN 5 MG TABLET PO ×2 (08:51→16:51)
[2022-10-05] MEDS: SILVERGEL (ELTA) 45 ML 1 APPLIC TOPICAL (08:52)
--- NOTE | 2022-10-05 11:09 | P.PNNP_ITS ---
Progress Note: A&P Assessment and Plan (1) ULISSES (acute kidney injury): Code(s): N17.9 - Acute kidney failure, unspecified Status: Acute Assessment and Plan: * acute kidney injury. * His baseline creatinine is normal * urine electrolytes pre renal. Ultrasound shows normal solitary kidney. CPK normal. * He does have peripheral eosinophilia. Today it is 9.6% * he is off the hydralazine and also off the cefepime * Other possibilities for ULISSES include wound infection and possibly pneumonia. These are more likely. * Renal scan shows the 1 kidney with uptake but poor excretion. This is more consistent with ATN. * creatinine is stable but not improving . His swelling is better. I am going to hold diuretics today and restart at a lower dose tomorrow. * Will keep an eye on the eosinophils. Notably it was present on admission before he was even on antibiotics. Hydralazine is really the only medication he was on as an outpatient that might do this. * he has swelling. * This is better. Hold diuretics for now. * Creatinine is stable at 2.3 (2) Decubitus ulcer of sacral area: Code(s): L89.159 - Pressure ulcer of sacral region, unspecified stage Status: Acute Assessment and Plan: * as noted on admission * concerns for osteomyelitis but imaging negative * General Surgery and wound care following * s/p debridement * No osteo on evaluation. (3) Hypertension: Code(s): I10 - Essential (primary) hypertension Status: Chronic Assessment and Plan: * Blood pressure looks well controlled (4) Normocytic anemia: Code(s): D64.9 - Anemia, unspecified Status: Acute Assessment and Plan: * hemoglobin Ranging in the low 8s * He is getting Epogen (5) Physical debility: Code(s): R53.81 - Other malaise Status: Acute Assessment and Plan: * seems somewhat bed-bound * PT/OT as tolerated (6) Eosinophilia: Code(s): D72.10 - Eosinophilia, unspecified Status: Acute Subjective Date/time seen: 10/05/22 11:09 Interval history: pt lying flat in bed. eating well. He slept okay no chest pain or shortness of breath Exam Narrative: General: WD/WN elderly male in NAD Heart: normal S1 and S2; no rub or gallop Lungs: clear to auscultation Abdomen: soft, nontender, nondistended, positive bowel sounds Extremities: no cyanosis or clubbing; 1+ bilateral edema. The worse on the left. This is chronic. Skin: no rash Objective Data Vital Signs Vital Signs: Vital Signs - 24 hr 10/04/22 14:00 10/04/22 16:23 10/04/22 22:00 Temperature 97.2 F L 97.9 F Pulse Rate 88 84 68 Respiratory Rate 18 20 Blood Pressure 100/49 L 112/65 Pulse Oximetry 90 96 Oxygen Delivery 10/04/22 20:00 10/05/22 05:30 10/05/22 08:51 Temperature 98.4 F Pulse Rate 78 68 Respiratory Rate 18 Blood Pressure 109/62 Pulse Oximetry 90 Oxygen Delivery Room Air Intake/Output Intake/Output: Intake & Output 10/02/22 10/03/22 10/04/22 10/05/22 23:59 23:59 23:59 23:59 Intake Total 1999 1730 1600 220 Output Total 3725 3375 4300 925 Balance -1725
--- NOTE | 2022-10-05 11:09 | PM.PNNEP ---
Progress Note: A&P Assessment and Plan (1) ULISSES (acute kidney injury): Code(s): N17.9 - Acute kidney failure, unspecified Status: Acute Assessment and Plan: acute kidney injury. His baseline creatinine is normal urine electrolytes pre renal. Ultrasound shows normal solitary kidney. CPK normal. He does have peripheral eosinophilia. Today it is 9.6% he is off the hydralazine and also off the cefepime Other possibilities for ULISSES include wound infection and possibly pneumonia. These are more likely. Renal scan shows the 1 kidney with uptake but poor excretion. This is more consistent with ATN. creatinine is stable but not improving . His swelling is better. I am going to hold diuretics today and restart at a lower dose tomorrow. Will keep an eye on the eosinophils. Notably it was present on admission before he was even on antibiotics. Hydralazine is really the only medication he was on as an outpatient that might do this. he has swelling. This is better. Hold diuretics for now. Creatinine is stable at 2.3 (2) Decubitus ulcer of sacral area: Code(s): L89.159 - Pressure ulcer of sacral region, unspecified stage Status: Acute Assessment and Plan: as noted on admission concerns for osteomyelitis but imaging negative General Surgery and wound care following s/p debridement No osteo on evaluation. (3) Hypertension: Code(s): I10 - Essential (primary) hypertension Status: Chronic Assessment and Plan: Blood pressure looks well controlled (4) Normocytic anemia: Code(s): D64.9 - Anemia, unspecified Status: Acute Assessment and Plan: hemoglobin Ranging in the low 8s He is getting Epogen (5) Physical debility: Code(s): R53.81 - Other malaise Status: Acute Assessment and Plan: seems somewhat bed-bound PT/OT as tolerated (6) Eosinophilia: Code(s): D72.10 - Eosinophilia, unspecified Status: Acute Subjective Date/time seen: 10/05/22 11:09 Interval history: pt lying flat in bed. eating well. He slept okay no chest pain or shortness of breath Exam Narrative: General: WD/WN elderly male in NAD Heart: normal S1 and S2; no rub or gallop Lungs: clear to auscultation Abdomen: soft, nontender, nondistended, positive bowel sounds Extremities: no cyanosis or clubbing; 1+ bilateral edema. The worse on the left. This is chronic. Skin: no rash Objective Data Vital Signs Vital Signs: Vital Signs - 24 hr 10/04/22 14:00 10/04/22 16:23 10/04/22 22:00 Temperature 97.2 F L 97.9 F Pulse Rate 88 84 68 Respiratory Rate 18 20 Blood Pressure 100/49 L 112/65 Pulse Oximetry 90 96 Oxygen Delivery 10/04/22 20:00 10/05/22 05:30 10/05/22 08:51 Temperature 98.4 F Pulse Rate 78 68 Respiratory Rate 18 Blood Pressure 109/62 Pulse Oximetry 90 Oxygen Delivery Room Air Intake/Output Intake/Output: Intake & Output 10/02/22 10/03/22 10/04/22 10/05/22 23:59 23:59 23:59 23:59 Intake Total 1999 1730 1600 220 Output Total 3725 3375 4300 925 Balance -1725 -1645 -2700 -705 Meds/Results Medications: Active Medications Generic Name Dose Route Start Last Admin Trade Name Freq PRN Reason Stop Dose Admin Acetaminophen 650 mg 09/15/22 17:02 09/30/22 17:55 Acetaminophen 325 Mg Tablet PO 650 mg Q6H PRN Administration Mild Pain (1-3) or Fever Hydrocodone Bitart/Acetaminophen 1 tab 10/01/22 18:10 10/05/22 06:30 Hydrocodone/Acetaminophen (*Crx) 5-325 Mg Tablet PO 1 tab Q6H PRN Administration Pain Rated 4-6 Apixaban 5 mg 09/26/22 17:00 10/05/22 08:51 Apixaban 5 Mg Tablet PO 5 mg BID JOSE G Administration Aspirin 81 mg 09/16/22 09:00 10/05/22 08:50 Aspirin 81 Mg Chewable Tablet PO 81 mg DAILY JOSE G Administration Atorvastatin Calcium 20 mg 09/16/22 09:00
[2022-10-05 14:00] VITALS: BP 106/71; PULSE 67; RESP 20; TEMP 36.8; O2SAT 92
[2022-10-05 16:51] VITALS: PULSE 67
--- NOTE | 2022-10-05 18:13 | PM.IMPN ---
Progress Note: A&P Assessment and Plan (1) ULISSES (acute kidney injury): Code(s): N17.9 - Acute kidney failure, unspecified Status: Acute Assessment and Plan: Appreciate nephrology consultation, kidney function stable, creatinine 2.2-2.3 consistently (2) Decubitus ulcer of sacral area: Code(s): L89.159 - Pressure ulcer of sacral region, unspecified stage Status: Acute Assessment and Plan: Okay to discharge back to nursing facility per general surgery with wound care, no signs of osteomyelitis in wound, on cefepime and Flagyl Appreciate wound care consult Antibiotics discontinued after completing a 14 day course (3) Chronic anticoagulation: Code(s): 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 (5) Obstructive sleep apnea: Code(s): G47.33 - Obstructive sleep apnea (adult) (pediatric) Status: Acute Assessment and Plan: CPAP will be provided for the patient to use while hospitalized. (6) Physical debility: Code(s): R53.81 - Other malaise Status: Acute Assessment and Plan: Plan is for rehab/nursing facility at discharge (7) Hypertension: Code(s): I10 - Essential (primary) hypertension Status: Chronic Assessment and Plan: Blood pressures were reviewed and they are stable. (8) Normocytic anemia: Code(s): D64.9 - Anemia, unspecified Status: Acute Assessment and Plan: Iron deficiency anemia, status post Venofer (9) Major depressive disorder: Code(s): F32.9 - Major depressive disorder, single episode, unspecified Status: Acute Assessment and Plan: Initiate Lexapro 10 mg daily Plan DVT prophylaxis with Eliquis GI prophylaxis not indicated Code status full code Subjective Date/time seen: 10/05/22 18:13 Interval history: No overnight events noted. No chest pain or shortness of breath. No nausea, vomiting or diarrhea. No fevers or chills. Requesting [place] at night for pain so he can sleep better. Review of Systems Review of Systems: 12 point review of systems was assessed and was negative except as noted in the HPI Exam Narrative: General: No acute distress, alert and oriented per baseline HEENT: Atraumatic, normocephalic, mucous membranes moist CV: Regular rate and rhythm, S1, S2 Lungs: Clear to auscultation bilaterally, no rales or crackles noted, no wheezes, good air entry Abdomen: Soft, nontender, nondistended Extremities: Normal to inspection Skin: No rashes noted, no lesions or wounds seen Psych: Dysthymic Objective Data Vital Signs Vital Signs: Vital Signs - 24 hr 10/04/22 22:00 10/04/22 20:00 10/05/22 05:30 Temperature 97.9 F 98.4 F Pulse Rate 68 78 Respiratory Rate 20 18 Blood Pressure 112/65 109/62 Pulse Oximetry 96 90 Oxygen Delivery Room Air 10/05/22 08:51 10/05/22 14:00 10/05/22 16:51 Temperature 98.2 F Pulse Rate 68 67 67 Respiratory Rate 20 Blood Pressure 106/71 Pulse Oximetry 92 Oxygen Delivery Intake/Output Intake/Output: Intake & Output 10/02/22 10/03/22 10/04/22 10/05/22 23:59 23:59 23:59 23:59 Intake Total 1999 1730 1600 580 Output Total 3056 9248 4308 928 Balance -1725 -1645 -2700 -345 Meds/Results Medications: Active Medications Generic Name Dose Route Start Last Admin Trade Name Freq PRN Reason Stop Dose Admin Acetaminophen 650 mg 09/15/22 17:02 09/30/22 17:55 Acetaminophen 325 Mg Tablet PO 650 mg Q6H PRN Administration Mild Pain (1-3) or Fever Hydrocodone Bitart/Acetaminophen 1 tab 10/01/22 18:10 10/05/22 06:30 Hydrocodone/Acetaminophen (*Crx
[2022-10-05 22:00] VITALS: BP 116/48; PULSE 71; RESP 20; TEMP 35.7; O2SAT 93
[2022-10-05] MEDS: TAMSULOSIN HCL 0.4 MG CAPSULE PO (22:20)
[2022-10-06 06:00] VITALS: BP 109/66; PULSE 68; RESP 18; TEMP 35.6; O2SAT 92
[2022-10-06 07:25] LABS: Basophils Absolute Auto 0.1 K/mm3 (0.0-0.1); Basophils Percent Auto 0.8 % (0.2-1.2); Eosinophils Absolute Auto 0.7 K/mm3 (0-0.3); Eosinophils Percent Auto 11.5 % (0-4.4); Hematocrit 26.6 % (42.0-52.0); Hemoglobin 7.7 g/dL (14.0-18.0); Immature Granulocyte Absolute 0.05 K/mm3 (0.00-0.031); Immature Granulocyte Percent A 0.8 % (0-0.5); Lymphocytes Percent Auto 20.5 % (18.3-44.2); Mean Corpuscular HGB Conc 28.9 g/dl (32-36); Mean Corpuscular Hemoglobin 27.5 pg (26-34); Mean Platelet Volume 11.2 fl (7.4-10.4); Monocytes Absolute Auto 0.6 K/mm3 (0.1-0.6); Monocytes Percent Auto 9.8 % (2.6-8.5); Neutrophils Absolute Auto 3.6 K/mm3 (1.3-6.7); Neutrophils Percent Auto 56.6 % (45.5-73.1); Platelet Count Result 198 k/mm3 (150-375); Red Cell Distribution Width 21.9 % (11.5-14.5); White Blood Count 6.3 K/mm3 (4.5-10.0)
[2022-10-06 07:39] LABS: Alanine Aminotransferase 15 U/L (6-50); Albumin Level 2.4 g/dL (3.5-5.1); Alkaline Phosphatase 50 U/L (38-126); Anion Gap 0 mmol/L (8-16); Aspartate Amino Transferase 25 U/L (17-59); Bilirubin,Total 0.6 mg/dL (0.2-1.3); Blood Urea Nitrogen 79 mg/dL (9-20); Calcium 7.9 mg/dL (8.4-10.2); Carbon Dioxide 34 mmol/L (22-30); Chloride 101 mmol/L (98-107); Estimated CRCL calculation 38 ml/min; Estimated Glomerular Filt Rate 37; Glucose 86 mg/dL (65-110); Potassium 3.9 mmol/L (3.4-5.0); Sodium 135 mmol/L (137-145)
[2022-10-06 08:02] LABS: Albumin Level 2.4 g/dL (3.5-5.1); Anion Gap 1 mmol/L (8-16); Blood Urea Nitrogen 80 mg/dL (9-20); Carbon Dioxide 33 mmol/L (22-30); Chloride 101 mmol/L (98-107); Estimated CRCL calculation 38 ml/min; Estimated Glomerular Filt Rate 37; Glucose 86 mg/dL (65-110); Phosphorus 2.9 mg/dL (2.5-4.5); Potassium 3.9 mmol/L (3.4-5.0); Sodium 135 mmol/L (137-145)
[2022-10-06 08:18] LABS: Anisocytosis 2+ (NORMAL); Hypochromasia 3+ (NORMAL); Ovalocytes 1+ (NORMAL); Platelet Estimate Adequate (Adequate); Poikilocytosis 2+ (NORMAL); Target Cells 1+ (NORMAL)
[2022-10-06 08:19] LABS: Schistocytes Rare (NORMAL)
[2022-10-06 10:23] VITALS: PULSE 68
[2022-10-06] MEDS: METOPROLOL SUCCINATE EXT REL 25 MG TABCR PO ×2 (10:23→17:09)
[2022-10-06] MEDS: APIXABAN 5 MG TABLET PO ×2 (10:24→17:09)
[2022-10-06] MEDS: GABAPENTIN 300 MG CAPSULE PO ×3 (10:24→17:09)
[2022-10-06] MEDS: POTASSIUM CHLORIDE 20 MEQ TABLET.ER 40 MEQ PO (10:24)
[2022-10-06] MEDS: SODIUM CHLORIDE 1 GM TABLET PO (10:24)
[2022-10-06] MEDS: ATORVASTATIN 20 MG TABLET PO (10:24)
[2022-10-06] MEDS: ESCITALOPRAM OXALATE 10 MG TABLET PO (10:24)
[2022-10-06] MEDS: ASPIRIN 81 MG CHEWABLE TABLET PO (10:24)
[2022-10-06] MEDS: SILVERGEL (ELTA) 45 ML 1 APPLIC TOPICAL (10:25)
--- NOTE | 2022-10-06 14:55 | P.PNNP_ITS ---
Progress Note: A&P Assessment and Plan (1) ULISSES (acute kidney injury): Code(s): N17.9 - Acute kidney failure, unspecified Status: Acute Assessment and Plan: * acute kidney injury. * His baseline creatinine is normal * urine electrolytes pre renal. Ultrasound shows normal solitary kidney. CPK normal. * He does have peripheral eosinophilia. Today it is 9.6% * Renal scan shows the 1 kidney with uptake but poor excretion. This is more consistent with ATN. * most likely this is ATN due to pre renal azotemia and infection. Allergic interstitial nephritis is possible. Removed all offending agents. * Diuretics were reduced. * Creatinine is better * reassess for need for diuretics tomorrow. (2) Decubitus ulcer of sacral area: Code(s): L89.159 - Pressure ulcer of sacral region, unspecified stage Status: Acute Assessment and Plan: * as noted on admission * concerns for osteomyelitis but imaging negative * General Surgery and wound care following * s/p debridement * No osteo on evaluation. (3) Hypertension: Code(s): I10 - Essential (primary) hypertension Status: Chronic Assessment and Plan: * Blood pressure Is doing well (4) Normocytic anemia: Code(s): D64.9 - Anemia, unspecified Status: Acute Assessment and Plan: * hemoglobin Ranging in the 7s and 8s * He is getting Epogen (5) Physical debility: Code(s): R53.81 - Other malaise Status: Acute Assessment and Plan: * seems somewhat bed-bound * PT/OT as tolerated (6) Eosinophilia: Code(s): D72.10 - Eosinophilia, unspecified Status: Acute Assessment and Plan: this was not present in early September but has been present since admission. He is off of offending agents. Subjective Date/time seen: 10/06/22 14:55 Interval history: pt lying flat in bed. eating well. no complaints right now Exam Narrative: General: WD/WN elderly male in NAD Heart: normal S1 and S2; no rub or gallop Lungs: clear Abdomen: soft, nontender, nondistended, positive bowel sounds Extremities: no cyanosis or clubbing; 1+ bilateral edema. The worse on the left. This is chronic. Skin: no rash or subcu nodules Objective Data Vital Signs Vital Signs: Vital Signs - 24 hr 10/05/22 16:51 10/05/22 22:00 10/05/22 20:00 Temperature 96.3 F L Pulse Rate 67 71 Respiratory Rate 20 Blood Pressure 116/48 L Pulse Oximetry 93 Oxygen Delivery Room Air 10/06/22 06:00 10/06/22 10:23 10/06/22 08:00 Temperature 96.1 F L Pulse Rate 68 68 Respiratory Rate 18 Blood Pressure 109/66 Pulse Oximetry 92 Oxygen Delivery Room Air Intake/Output Intake/Output: Intake & Output 10/03/22 10/04/22 10/05/22 10/06/22 23:59 23:59 23:59 23:59 Intake Total 1730 1600 1170 660 Output Total 3375 4300 1225 600 Balance -1645 -2700 -55 60 Meds/Results Medications: Active Medications Generic Name Dose Route Start Last Admin Trade Name Freq PRN Reason Stop Dose Admin Acetaminophen 650 mg 12/
--- NOTE | 2022-10-06 14:55 | PM.PNNEP ---
Progress Note: A&P Assessment and Plan (1) ULISSES (acute kidney injury): Code(s): N17.9 - Acute kidney failure, unspecified Status: Acute Assessment and Plan: acute kidney injury. His baseline creatinine is normal urine electrolytes pre renal. Ultrasound shows normal solitary kidney. CPK normal. He does have peripheral eosinophilia. Today it is 9.6% Renal scan shows the 1 kidney with uptake but poor excretion. This is more consistent with ATN. most likely this is ATN due to pre renal azotemia and infection. Allergic interstitial nephritis is possible. Removed all offending agents. Diuretics were reduced. Creatinine is better reassess for need for diuretics tomorrow. (2) Decubitus ulcer of sacral area: Code(s): L89.159 - Pressure ulcer of sacral region, unspecified stage Status: Acute Assessment and Plan: as noted on admission concerns for osteomyelitis but imaging negative General Surgery and wound care following s/p debridement No osteo on evaluation. (3) Hypertension: Code(s): I10 - Essential (primary) hypertension Status: Chronic Assessment and Plan: Blood pressure Is doing well (4) Normocytic anemia: Code(s): D64.9 - Anemia, unspecified Status: Acute Assessment and Plan: hemoglobin Ranging in the 7s and 8s He is getting Epogen (5) Physical debility: Code(s): R53.81 - Other malaise Status: Acute Assessment and Plan: seems somewhat bed-bound PT/OT as tolerated (6) Eosinophilia: Code(s): D72.10 - Eosinophilia, unspecified Status: Acute Assessment and Plan: this was not present in early September but has been present since admission. He is off of offending agents. Subjective Date/time seen: 10/06/22 14:55 Interval history: pt lying flat in bed. eating well. no complaints right now Exam Narrative: General: WD/WN elderly male in NAD Heart: normal S1 and S2; no rub or gallop Lungs: clear Abdomen: soft, nontender, nondistended, positive bowel sounds Extremities: no cyanosis or clubbing; 1+ bilateral edema. The worse on the left. This is chronic. Skin: no rash or subcu nodules Objective Data Vital Signs Vital Signs: Vital Signs - 24 hr 10/05/22 16:51 10/05/22 22:00 10/05/22 20:00 Temperature 96.3 F L Pulse Rate 67 71 Respiratory Rate 20 Blood Pressure 116/48 L Pulse Oximetry 93 Oxygen Delivery Room Air 10/06/22 06:00 10/06/22 10:23 10/06/22 08:00 Temperature 96.1 F L Pulse Rate 68 68 Respiratory Rate 18 Blood Pressure 109/66 Pulse Oximetry 92 Oxygen Delivery Room Air Intake/Output Intake/Output: Intake & Output 10/03/22 10/04/22 10/05/22 10/06/22 23:59 23:59 23:59 23:59 Intake Total 1730 1600 1170 660 Output Total 3375 [address] [facility] -1645 -2700 -55 60 Meds/Results Medications: Active Medications Generic Name Dose Route Start Last Admin Trade Name Freq PRN Reason Stop Dose Admin Acetaminophen 650 mg 09/15/22 17:02 09/30/22 17:55 Acetaminophen 325 Mg Tablet PO 650 mg Q6H PRN Administration Mild Pain (1-3) or Fever Hydrocodone Bitart/Acetaminophen 1 tab 10/05/22 21:00 10/05/22 22:20 Hydrocodone/Acetaminophen (*Crx) 5-325 Mg Tablet PO 1 tab QHS JOSE G Administration Apixaban 5 mg 09/26/22 17:00 10/06/22 10:24 Apixaban 5 Mg Tablet PO 5 mg BID JOSE G Administration Aspirin 81 mg 09/16/22 09:00 10/06/22 10:24 Aspirin 81 Mg Chewable Tablet PO 81 mg DAILY JOSE G Administration Atorvastatin Calcium 20 mg 09/16/22 09:00 10/06/22 10:24 Atorvastatin 20 Mg Tablet PO 20 mg DAILY JOSE G Administration Epoetin Aj-epbx 10,000 units 10/01/22 17:40 10/03/22 17:47 Epoetin Aj-Epbx 10,000 Units/Ml Vial SUB-Q 10,000 units MOWEFR JOSE G Administration Escitalopram Oxalate 10 mg 10/04/22
[2022-10-06 15:11] VITALS: BP 99/66; PULSE 67; RESP 16; TEMP 36.1; O2SAT 93
--- NOTE | 2022-10-06 15:37 | PM.IMPN ---
Progress Note: A&P Assessment and Plan (1) ULISSES (acute kidney injury): Code(s): N17.9 - Acute kidney failure, unspecified Status: Acute Assessment and Plan: appreciate nephrology consultation, unsure of etiology, likely multifactorial Diuretics currently being held, reassess tomorrow (2) Decubitus ulcer of sacral area: Code(s): L89.159 - Pressure ulcer of sacral region, unspecified stage Status: Acute Assessment and Plan: Okay to discharge back to nursing facility per general surgery with wound care, no signs of osteomyelitis in wound, on cefepime and Flagyl Appreciate wound care consult Antibiotics discontinued after completing a 14 day course (3) Chronic anticoagulation: Code(s): Z79.01 - [place] (current) use of anticoagulants Status: Acute Assessment and Plan: Continue Eliquis (4) Coronary artery disease: Code(s): I25.10 - Atherosclerotic heart disease of [place] coronary artery without angina pectoris Status: Acute Assessment and Plan: Continue aspirin, statin, and beta-dedra. (5) Obstructive sleep apnea: Code(s): G47.33 - Obstructive sleep apnea (adult) (pediatric) Status: Acute Assessment and Plan: CPAP will be provided for the patient to use while hospitalized. (6) Physical debility: Code(s): R53.81 - Other malaise Status: Acute Assessment and Plan: Plan is for rehab/nursing facility at discharge (7) Hypertension: Code(s): I10 - Essential (primary) hypertension Status: Chronic Assessment and Plan: Blood pressures were reviewed and they are stable. (8) Normocytic anemia: Code(s): D64.9 - Anemia, unspecified Status: Acute Assessment and Plan: Iron deficiency anemia, status post Venofer Plan DVT prophylaxis with Eliquis GI prophylaxis not indicated Code status full code Subjective Date/time seen: 10/06/22 15:37 Interval history: No overnight events noted. No chest pain or shortness of breath. No nausea, vomiting or diarrhea. No fevers or chills. States the [place] helped significantly with his pain so he could sleep. Review of Systems Review of Systems: 12 point review of systems was assessed and was negative except as noted in the HPI Exam Narrative: General: No acute distress, alert and oriented per baseline HEENT: Atraumatic, normocephalic, mucous membranes moist CV: Regular rate and rhythm, S1, S2 Lungs: Clear to auscultation bilaterally, no rales or crackles noted, no wheezes, good air entry Abdomen: Soft, nontender, nondistended Extremities: Normal to inspection Skin: No rashes noted, no lesions or wounds seen Psych: Euthymic Objective Data Vital Signs Vital Signs: Vital Signs - 24 hr 10/05/22 16:51 10/05/22 22:00 10/05/22 20:00 Temperature 96.3 F L Pulse Rate 67 71 Respiratory Rate 20 Blood Pressure 116/48 L Pulse Oximetry 93 Oxygen Delivery Room Air 10/06/22 06:00 10/06/22 10:23 10/06/22 08:00 Temperature 96.1 F L Pulse Rate 68 68 Respiratory Rate 18 Blood Pressure 109/66 Pulse Oximetry 92 Oxygen Delivery Room Air Intake/Output Intake/Output: Intake & Output 10/03/22 10/04/22 10/05/22 10/06/22 23:59 23:59 23:59 23:59 Intake Total 1730 1600 1170 660 Output Total 3375 4300 1225 600 Balance -1645 -2700 -55 60 Meds/Results Medications: Active Medications Generic Name Dose Route Start Last Admin Trade Name Freq PRN Reason Stop Dose Admin Acetaminophen 650 mg 09/15/22 17:02 09/30/22 17:55 Acetaminophen 325 Mg Tablet PO 650 mg Q6H PRN Administration Mild Pain (1-3) or Fever Hydrocodone Bitart/Acetaminophen 1 tab 10/05/22 21:00 10/05/22 22:20 Hydrocodone/Acetaminophen (*Crx) 5-325 Mg Tablet PO 1 tab QHS JOSE G Administration Apixaban 5 mg 09/26/22 17:00 10/06/22 10:24 Apixaban 5 Mg Tablet PO 5 mg BID JOSE G
[2022-10-06 17:09] VITALS: PULSE 67
[2022-10-06] MEDS: EPOETIN ALFA-EPBX 10,000 UNITS/ML VIAL 10000 UNITS SUB-Q (18:25)
[2022-10-06] MEDS: TAMSULOSIN HCL 0.4 MG CAPSULE PO (21:11)
[2022-10-06 22:00] VITALS: BP 109/68; PULSE 70; RESP 16; TEMP 35.9; O2SAT 93
[2022-10-06 23:38] VITALS: RESP 16
[2022-10-06] MEDS: HYDROcodone/acetaminophen (*CRX) 5-325 MG TABLET 1 TAB PO (23:38)
[2022-10-07 06:00] VITALS: BP 103/63; PULSE 68; RESP 14; TEMP 36.1; O2SAT 92
[2022-10-07 07:34] LABS: Basophils Absolute Auto 0.1 K/mm3 (0.0-0.1); Eosinophils Absolute Auto 0.8 K/mm3 (0-0.3); Eosinophils Percent Auto 13.8 % (0-4.4); Hematocrit 28.5 % (42.0-52.0); Hemoglobin 8.2 g/dL (14.0-18.0); Immature Granulocyte Absolute 0.04 K/mm3 (0.00-0.031); Immature Granulocyte Percent A 0.7 % (0-0.5); Lymphocytes Absolute Auto 1.41 K/mm3 (0.9-3.2); Lymphocytes Percent Auto 24.6 % (18.3-44.2); Mean Corpuscular HGB Conc 28.8 g/dl (32-36); Mean Corpuscular Hemoglobin 27.8 pg (26-34); Mean Corpuscular Volume 96.6 fl (80-100); Mean Platelet Volume 11.9 fl (7.4-10.4); Monocytes Absolute Auto 0.6 K/mm3 (0.1-0.6); Monocytes Percent Auto 10.8 % (2.6-8.5); Neutrophils Absolute Auto 2.8 K/mm3 (1.3-6.7); Neutrophils Percent Auto 49.1 % (45.5-73.1); Nucleated Red Blood Cells Perc 0.3 % (0.0-0.2); Platelet Count Result 189 k/mm3 (150-375); Red Blood Count 2.95 M/mm3 (4.6-6.20); Red Cell Distribution Width 22.3 % (11.5-14.5); White Blood Count 5.7 K/mm3 (4.5-10.0)
[2022-10-07 07:44] LABS: Alanine Aminotransferase 14 U/L (6-50); Albumin Level 2.4 g/dL (3.5-5.1); Alkaline Phosphatase 61 U/L (38-126); Anion Gap 1 mmol/L (8-16); Aspartate Amino Transferase 15 U/L (17-59); Bilirubin,Total 0.4 mg/dL (0.2-1.3); Blood Urea Nitrogen 78 mg/dL (9-20); Calcium 8.3 mg/dL (8.4-10.2); Carbon Dioxide 34 mmol/L (22-30); Chloride 103 mmol/L (98-107); Estimated CRCL calculation 40 ml/min; Estimated Glomerular Filt Rate 40; Glucose 85 mg/dL (65-110); Potassium 3.7 mmol/L (3.4-5.0); Sodium 138 mmol/L (137-145)
[2022-10-07] MEDS: POTASSIUM CHLORIDE 20 MEQ TABLET.ER 40 MEQ PO (08:10)
[2022-10-07 08:11] VITALS: PULSE 60
[2022-10-07] MEDS: ASPIRIN 81 MG CHEWABLE TABLET PO (08:11)
[2022-10-07] MEDS: METOPROLOL SUCCINATE EXT REL 25 MG TABCR PO ×2 (08:11→17:11)
[2022-10-07] MEDS: ESCITALOPRAM OXALATE 10 MG TABLET PO (08:11)
[2022-10-07] MEDS: ATORVASTATIN 20 MG TABLET PO (08:12)
[2022-10-07] MEDS: APIXABAN 5 MG TABLET PO ×2 (08:12→17:12)
[2022-10-07] MEDS: GABAPENTIN 300 MG CAPSULE PO ×3 (08:12→17:11)
[2022-10-07] MEDS: SODIUM CHLORIDE 1 GM TABLET PO (08:13)
[2022-10-07] MEDS: SILVERGEL (ELTA) 45 ML 1 APPLIC TOPICAL (08:13)
[2022-10-07 08:23] LABS: Anisocytosis 1+ (NORMAL); Burr Cells 1+ (NORMAL); Hypochromasia 1+ (NORMAL); Platelet Estimate Adequate (Adequate); Poikilocytosis 1+ (NORMAL); Schistocytes 1+ (NORMAL)
--- NOTE | 2022-10-07 08:41 | PM.IMPN ---
Progress Note: A&P Assessment and Plan (1) ULISSES (acute kidney injury): Code(s): N17.9 - Acute kidney failure, unspecified Status: Acute Assessment and Plan: appreciate nephrology consultation, unsure of etiology, likely multifactorial Diuretics currently being held, follow-up nephrology recommendations today, creatinine continues to improve (2) Decubitus ulcer of sacral area: Code(s): L89.159 - Pressure ulcer of sacral region, unspecified stage Status: Acute Assessment and Plan: Okay to discharge back to nursing facility per general surgery with wound care, no signs of osteomyelitis in wound, on cefepime and Flagyl Appreciate wound care consult Antibiotics discontinued after completing a 14 day course (3) Chronic anticoagulation: Code(s): Z79.01 - group home (current) use of anticoagulants Status: Acute Assessment and Plan: Continue Eliquis (4) Coronary artery disease: Code(s): I25.10 - Atherosclerotic heart disease of [place] coronary artery without angina pectoris Status: Acute Assessment and Plan: Continue aspirin, statin, and beta-dedra. (5) Obstructive sleep apnea: Code(s): G47.33 - Obstructive sleep apnea (adult) (pediatric) Status: Acute Assessment and Plan: CPAP will be provided for the patient to use while hospitalized. (6) Physical debility: Code(s): R53.81 - Other malaise Status: Acute Assessment and Plan: Plan is for rehab/nursing facility at discharge (7) Hypertension: Code(s): I10 - Essential (primary) hypertension Status: Chronic Assessment and Plan: Blood pressures were reviewed and they are stable. (8) Normocytic anemia: Code(s): D64.9 - Anemia, unspecified Status: Acute Assessment and Plan: Iron deficiency anemia, status post Venofer Plan DVT prophylaxis with Eliquis GI prophylaxis not indicated Code status full code Subjective Date/time seen: 10/07/22 08:41 Interval history: No overnight events noted. No chest pain or shortness of breath. No nausea, vomiting or diarrhea. No fevers or chills. States the [place] helped significantly with his pain so he could sleep. Review of Systems Review of Systems: 12 point review of systems was assessed and was negative except as noted in the HPI Exam Narrative: General: No acute distress, alert and oriented per baseline HEENT: Atraumatic, normocephalic, mucous membranes moist CV: Regular rate and rhythm, S1, S2 Lungs: Clear to auscultation bilaterally, no rales or crackles noted, no wheezes, good air entry Abdomen: Soft, nontender, nondistended Extremities: Normal to inspection Skin: No rashes noted, no lesions or wounds seen Psych: Euthymic Objective Data Vital Signs Vital Signs: Vital Signs - 24 hr 10/06/22 10:23 10/06/22 15:11 10/06/22 17:09 Temperature 97.0 F L Pulse Rate 68 67 67 Respiratory Rate 16 Blood Pressure 99/66 L Pulse Oximetry 93 Oxygen Delivery 10/06/22 23:38 10/06/22 22:00 10/07/22 06:00 Temperature 96.7 F L 97 F L Pulse Rate 70 68 Respiratory Rate 16 16 14 Blood Pressure 109/68 103/63 Pulse Oximetry 93 92 Oxygen Delivery Room Air 10/07/22 08:11 Temperature Pulse Rate 60 Respiratory Rate Blood Pressure Pulse Oximetry Oxygen Delivery Intake/Output Intake/Output: Intake & Output 10/04/22 10/05/22 10/06/22 10/07/22 23:59 23:59 23:59 23:59 Intake Total 1600 1170 1030 30 Output Total 4300 1225 1150 800 [facility] -2700 -55 -120 -770 Meds/Results Medications: Active Medications Generic Name Dose Route Start Last Admin Trade Name Freq PRN Reason Stop Dose Admin Acetaminophen 650 mg 09/15/22 17:02 09/30/22 17:55 Acetaminophen 325 Mg Tablet PO 650 mg Q6H PRN Administration Mild Pain (1-3) or Fever Hydrocodone Bitart/Acetaminophen 1 tab 10/05/22 21:00 10/06/22 23
[2022-10-07 14:00] VITALS: BP 100/68; PULSE 68; RESP 16; TEMP 35.9; O2SAT 94
[2022-10-07 17:11] VITALS: PULSE 62
[2022-10-07] MEDS: HYDROcodone/acetaminophen (*CRX) 5-325 MG TABLET 1 TAB PO (20:44)
[2022-10-07] MEDS: TAMSULOSIN HCL 0.4 MG CAPSULE PO (20:44)
--- NOTE | 2022-10-07 21:51 | P.PNNP_ITS ---
Progress Note: A&P Assessment and Plan (1) ULISSES (acute kidney injury): Code(s): N17.9 - Acute kidney failure, unspecified Status: Acute Assessment and Plan: * acute kidney injury. * His baseline creatinine is normal * urine electrolytes pre renal. Ultrasound shows normal solitary kidney. CPK normal. * He does have peripheral eosinophilia. Today it is 9.6% * Renal scan shows the 1 kidney with uptake but poor excretion. This is more consistent with ATN. * most likely this is ATN due to pre renal azotemia and infection. Allergic interstitial nephritis is possible. Removed all offending agents. * Diuretics were reduced. * Creatinine is better again to 1.7 * consider cutting back on diuretics again tomorrow. (2) Decubitus ulcer of sacral area: Code(s): L89.159 - Pressure ulcer of sacral region, unspecified stage Status: Acute Assessment and Plan: * as noted on admission * concerns for osteomyelitis but imaging negative * General Surgery and wound care following * s/p debridement * No osteo on evaluation. (3) Hypertension: Code(s): I10 - Essential (primary) hypertension Status: Chronic Assessment and Plan: * Blood pressure Is doing well (4) Normocytic anemia: Code(s): D64.9 - Anemia, unspecified Status: Acute Assessment and Plan: * hemoglobin Ranging in the 7s and 8s * stable * He is getting Epogen (5) Physical debility: Code(s): R53.81 - Other malaise Status: Acute Assessment and Plan: * seems somewhat bed-bound * PT/OT as tolerated (6) Eosinophilia: Code(s): D72.10 - Eosinophilia, unspecified Status: Acute Assessment and Plan: this was not present in early September but has been present since admission. He is off of offending agents. Subjective Date/time seen: 10/07/22 21:51 Interval history: pt lying flat in bed. eating well. no complaints right now eating pretty well edema better Exam Narrative: General: WD/WN elderly male in NAD Heart: normal S1 and S2; no rub or gallop Lungs: clear bilaterally Abdomen: soft, nontender, nondistended, positive bowel sounds Extremities: no cyanosis or clubbing; 1+ bilateral edema. The worse on the left. This is chronic. Skin: no rash or subcu nodules Objective Data Vital Signs Vital Signs: Vital Signs - 24 hr 10/06/22 23:38 10/06/22 22:00 10/07/22 06:00 Temperature 96.7 F L 97 F L Pulse Rate 70 68 Respiratory Rate 16 16 14 Blood Pressure 109/68 103/63 Pulse Oximetry 93 92 Oxygen Delivery Room Air 10/07/22 08:11 10/07/22 14:00 10/07/22 17:11 Temperature 96.6 F L Pulse Rate 60 68 62 Respiratory Rate 16 Blood Pressure 100/68 Pulse Oximetry 94 Oxygen Delivery Intake/Output Intake/Output: Intake & Output 10/04/22 10/05/22 10/06/22 10/07/22 23:59 23:59 23:59 23:59 Intake Total 1600 1170 1030 1120 Output Total 4300 1225 1150 1250 Balance -2700 -55 -120 -130 Meds/Results Medications: Active Medications Generic Name Dose Route
--- NOTE | 2022-10-07 21:51 | PM.PNNEP ---
Progress Note: A&P Assessment and Plan (1) ULISSES (acute kidney injury): Code(s): N17.9 - Acute kidney failure, unspecified Status: Acute Assessment and Plan: acute kidney injury. His baseline creatinine is normal urine electrolytes pre renal. Ultrasound shows normal solitary kidney. CPK normal. He does have peripheral eosinophilia. Today it is 9.6% Renal scan shows the 1 kidney with uptake but poor excretion. This is more consistent with ATN. most likely this is ATN due to pre renal azotemia and infection. Allergic interstitial nephritis is possible. Removed all offending agents. Diuretics were reduced. Creatinine is better again to 1.7 consider cutting back on diuretics again tomorrow. (2) Decubitus ulcer of sacral area: Code(s): L89.159 - Pressure ulcer of sacral region, unspecified stage Status: Acute Assessment and Plan: as noted on admission concerns for osteomyelitis but imaging negative General Surgery and wound care following s/p debridement No osteo on evaluation. (3) Hypertension: Code(s): I10 - Essential (primary) hypertension Status: Chronic Assessment and Plan: Blood pressure Is doing well (4) Normocytic anemia: Code(s): D64.9 - Anemia, unspecified Status: Acute Assessment and Plan: hemoglobin Ranging in the 7s and 8s stable He is getting Epogen (5) Physical debility: Code(s): R53.81 - Other malaise Status: Acute Assessment and Plan: seems somewhat bed-bound PT/OT as tolerated (6) Eosinophilia: Code(s): D72.10 - Eosinophilia, unspecified Status: Acute Assessment and Plan: this was not present in early September but has been present since admission. He is off of offending agents. Subjective Date/time seen: 10/07/22 21:51 Interval history: pt lying flat in bed. eating well. no complaints right now eating pretty well edema better Exam Narrative: General: WD/WN elderly male in NAD Heart: normal S1 and S2; no rub or gallop Lungs: clear bilaterally Abdomen: soft, nontender, nondistended, positive bowel sounds Extremities: no cyanosis or clubbing; 1+ bilateral edema. The worse on the left. This is chronic. Skin: no rash or subcu nodules Objective Data Vital Signs Vital Signs: Vital Signs - 24 hr 10/06/22 23:38 10/06/22 22:00 10/07/22 06:00 Temperature 96.7 F L 97 F L Pulse Rate 70 68 Respiratory Rate 16 16 14 Blood Pressure 109/68 103/63 Pulse Oximetry 93 92 Oxygen Delivery Room Air 10/07/22 08:11 10/07/22 14:00 10/07/22 17:11 Temperature 96.6 F L Pulse Rate 60 68 62 Respiratory Rate 16 Blood Pressure 100/68 Pulse Oximetry 94 Oxygen Delivery Intake/Output Intake/Output: Intake & Output 10/04/22 10/05/22 10/06/22 10/07/22 23:59 23:59 23:59 23:59 Intake Total 1600 1170 1030 1120 Output Total 4300 1225 1150 1250 Balance -2700 -55 -120 -130 Meds/Results Medications: Active Medications Generic Name Dose Route Start Last Admin Trade Name Freq PRN Reason Stop Dose Admin Acetaminophen 650 mg 09/15/22 17:02 09/30/22 17:55 Acetaminophen 325 Mg Tablet PO 650 mg Q6H PRN Administration Mild Pain (1-3) or Fever Hydrocodone Bitart/Acetaminophen 1 tab 10/05/22 21:00 10/07/22 20:44 Hydrocodone/Acetaminophen (*Crx) 5-325 Mg Tablet PO 1 tab QHS JOSE G Administration Apixaban 5 mg 09/26/22 17:00 10/07/22 17:12 Apixaban 5 Mg Tablet PO 5 mg BID JOSE G Administration Aspirin 81 mg 09/16/22 09:00 10/07/22 08:11 Aspirin 81 Mg Chewable Tablet PO 81 mg DAILY JOSE G Administration Atorvastatin Calcium 20 mg 09/16/22 09:00 10/07/22 08:12 Atorvastatin 20 Mg Tablet PO 20 mg DAILY JOSE G Administration Epoetin Aj-epbx 10,000 units 10/01/22 17:40 10/06/22 18:25 Epoetin Aj-Epbx 10,000 Units/Ml Vial
[2022-10-07 22:00] VITALS: BP 105/60; PULSE 72; RESP 12; TEMP 36.6; O2SAT 95
[2022-10-08 06:00] VITALS: BP 110/65; PULSE 72; RESP 20; TEMP 36.7; O2SAT 92
[2022-10-08 06:44] LABS: Basophils Percent Auto 0.6 % (0.2-1.2); Eosinophils Absolute Auto 0.8 K/mm3 (0-0.3); Eosinophils Percent Auto 12.3 % (0-4.4); Hematocrit 27.5 % (42.0-52.0); Hemoglobin 7.9 g/dL (14.0-18.0); Immature Granulocyte Absolute 0.03 K/mm3 (0.00-0.031); Immature Granulocyte Percent A 0.5 % (0-0.5); Lymphocytes Absolute Auto 1.32 K/mm3 (0.9-3.2); Lymphocytes Percent Auto 20.8 % (18.3-44.2); Mean Corpuscular HGB Conc 28.7 g/dl (32-36); Mean Corpuscular Volume 93.9 fl (80-100); Mean Platelet Volume 11.8 fl (7.4-10.4); Monocytes Absolute Auto 0.7 K/mm3 (0.1-0.6); Monocytes Percent Auto 10.6 % (2.6-8.5); Neutrophils Absolute Auto 3.5 K/mm3 (1.3-6.7); Neutrophils Percent Auto 55.2 % (45.5-73.1); Platelet Count Result 197 k/mm3 (150-375); Red Blood Count 2.93 M/mm3 (4.6-6.20); Red Cell Distribution Width 21.8 % (11.5-14.5); White Blood Count 6.4 K/mm3 (4.5-10.0)
[2022-10-08 06:51] LABS: Alanine Aminotransferase 14 U/L (6-50); Albumin Level 2.5 g/dL (3.5-5.1); Alkaline Phosphatase 65 U/L (38-126); Anion Gap 2 mmol/L (8-16); Aspartate Amino Transferase 19 U/L (17-59); Bilirubin,Total 0.4 mg/dL (0.2-1.3); Blood Urea Nitrogen 81 mg/dL (9-20); Calcium 8.3 mg/dL (8.4-10.2); Carbon Dioxide 34 mmol/L (22-30); Chloride 105 mmol/L (98-107); Estimated CRCL calculation 42 ml/min; Estimated Glomerular Filt Rate 43; Glucose 84 mg/dL (65-110); Phosphorus 2.8 mg/dL (2.5-4.5); Potassium 3.9 mmol/L (3.4-5.0); Sodium 141 mmol/L (137-145)
[2022-10-08 07:27] LABS: Hypochromasia 2+ (NORMAL); Platelet Estimate Adequate (Adequate)
[2022-10-08 07:28] LABS: Ovalocytes 1+ (NORMAL); Tear Drop Cells 1+ (NORMAL)
[2022-10-08 07:29] LABS: Acanthocytes 1+ (NORMAL); Schistocytes 1+ (NORMAL)
[2022-10-08] MEDS: SILVERGEL (ELTA) 45 ML 1 APPLIC TOPICAL (08:16)
[2022-10-08] MEDS: POTASSIUM CHLORIDE 20 MEQ TABLET.ER 40 MEQ PO (08:17)
[2022-10-08] MEDS: GABAPENTIN 300 MG CAPSULE PO ×3 (08:17→16:43)
[2022-10-08] MEDS: SODIUM CHLORIDE 1 GM TABLET PO (08:17)
[2022-10-08] MEDS: APIXABAN 5 MG TABLET PO ×2 (08:17→16:43)
[2022-10-08] MEDS: ESCITALOPRAM OXALATE 10 MG TABLET PO (08:17)
[2022-10-08] MEDS: ASPIRIN 81 MG CHEWABLE TABLET PO (08:17)
[2022-10-08] MEDS: ATORVASTATIN 20 MG TABLET PO (08:17)
[2022-10-08 08:19] VITALS: PULSE 65
[2022-10-08] MEDS: METOPROLOL SUCCINATE EXT REL 25 MG TABCR PO ×2 (08:19→16:43)
[2022-10-08 14:00] VITALS: BP 102/56; PULSE 67; RESP 18; TEMP 36.1; O2SAT 92
--- NOTE | 2022-10-08 14:14 | P.PNNP_ITS ---
Progress Note: A&P Assessment and Plan (1) ULISSES (acute kidney injury): Code(s): N17.9 - Acute kidney failure, unspecified Status: Acute Assessment and Plan: * resolving * baseline creatinine is normal * evaluation to date: * urine electrolytes pre renal * Ultrasound shows normal solitary kidney * CPK normal * peripheral eosinophilia noted * renal scan shows the 1 kidney with uptake but poor excretion * suspect this is ATN due to pre renal azotemia and infection * allergic interstitial nephritis is possible -- removed all offending agents * diuretics were reduced * consider weaning off diuretics closer to discharge (2) Decubitus ulcer of sacral area: Code(s): L89.159 - Pressure ulcer of sacral region, unspecified stage Status: Acute Assessment and Plan: * as noted on admission * concerns for osteomyelitis but imaging negative * General Surgery and wound care following * s/p debridement (3) Hypertension: Code(s): I10 - Essential (primary) hypertension Status: Chronic Assessment and Plan: * reasonable control * follow trend of hemodynamics (4) Normocytic anemia: Code(s): D64.9 - Anemia, unspecified Status: Acute Assessment and Plan: * H/H on the low side but stable * getting Epogen while hospitalized * follow trend (5) Physical debility: Code(s): R53.81 - Other malaise Status: Acute Assessment and Plan: * seems somewhat bed-bound * PT/OT as tolerated Will continue to follow. Subjective Date/time seen: 10/08/22 14:14 Chart reviewed since last seen -- assuming care from Dr. Kilpatrick; seems to be doing reasonably at the time of my visit; renal function slowly improving with swelling/edema getting better as well; no apparent distress voiced. Exam Narrative: General: WD/WN elderly male in NAD Heart: normal S1 and S2; no rub Lungs: clear bilaterally Abdomen: soft, nontender, nondistended, positive bowel sounds Extremities: no cyanosis or clubbing; 1+ bilateral edema (worse on left which is chronic) Skin: warm and dry Objective Data Vital Signs Vital Signs: Vital Signs Temp Pulse Resp BP Pulse Ox O2 Del Method 10/08/22 14:00 97.0 F L 67 18 102/56 L 92 10/08/22 08:19 65 10/08/22 06:00 98.1 F 72 20 110/65 92 10/07/22 22:00 97.9 F 72 12 105/60 95 10/07/22 20:44 Room Air Intake/Output Intake/Output: Intake & Output 10/05/22 10/06/22 10/07/22 10/08/22 23:59 23:59 23:59 23:59 Intake Total 1170 1030 1120 1170 Output Total 1225 1150 1250 600 Balance -55 -120 -130 570 Meds/Results Medications: Active Medications Generic Name Dose Route Start Last Admin Trade Name Freq PRN Reason Stop Dose Admin Acetaminophen 650 mg 09/15/22 17:02 09/30/22 17:55 Acetaminophen 325 Mg Tablet PO 650 mg Q6H PRN Administration Mild Pain (1-3) or Fever Hydrocodone Bitart/Acetaminophen 1 tab 10/05/22 21:00 10/07/22 20:44 Hydrocodone/Acetaminophen (*Crx) 5-325 Mg Tablet PO 1 tab QHS JOSE G Administration Apixaban 5 mg 09/26/22 17:00 10/08/22 16:43 Apix
--- NOTE | 2022-10-08 14:14 | PM.PNNEP ---
Progress Note: A&P Assessment and Plan (1) ULISSES (acute kidney injury): Code(s): N17.9 - Acute kidney failure, unspecified Status: Acute Assessment and Plan: resolving baseline creatinine is normal evaluation to date: urine electrolytes pre renal Ultrasound shows normal solitary kidney CPK normal peripheral eosinophilia noted renal scan shows the 1 kidney with uptake but poor excretion suspect this is ATN due to pre renal azotemia and infection allergic interstitial nephritis is possible -- removed all offending agents diuretics were reduced consider weaning off diuretics closer to discharge (2) Decubitus ulcer of sacral area: Code(s): L89.159 - Pressure ulcer of sacral region, unspecified stage Status: Acute Assessment and Plan: as noted on admission concerns for osteomyelitis but imaging negative General Surgery and wound care following s/p debridement (3) Hypertension: Code(s): I10 - Essential (primary) hypertension Status: Chronic Assessment and Plan: reasonable control follow trend of hemodynamics (4) Normocytic anemia: Code(s): D64.9 - Anemia, unspecified Status: Acute Assessment and Plan: H/H on the low side but stable getting Epogen while hospitalized follow trend (5) Physical debility: Code(s): R53.81 - Other malaise Status: Acute Assessment and Plan: seems somewhat bed-bound PT/OT as tolerated Will continue to follow. Subjective Date/time seen: 10/08/22 14:14 Chart reviewed since last seen -- assuming care from Dr. Kilpatrick; seems to be doing reasonably at the time of my visit; renal function slowly improving with swelling/edema getting better as well; no apparent distress voiced. Exam Narrative: General: WD/WN elderly male in NAD Heart: normal S1 and S2; no rub Lungs: clear bilaterally Abdomen: soft, nontender, nondistended, positive bowel sounds Extremities: no cyanosis or clubbing; 1+ bilateral edema (worse on left which is chronic) Skin: warm and dry Objective Data Vital Signs Vital Signs: Vital Signs Temp Pulse Resp BP Pulse Ox O2 Del Method 10/08/22 14:00 97.0 F L 67 18 102/56 L 92 10/08/22 08:19 65 10/08/22 06:00 98.1 F 72 20 110/65 92 10/07/22 22:00 97.9 F 72 12 105/60 95 10/07/22 20:44 Room Air Intake/Output Intake/Output: Intake & Output 10/05/22 10/06/22 10/07/22 10/08/22 23:59 23:59 23:59 23:59 Intake Total 1170 1030 1120 1170 Output Total 1225 1150 1250 600 Balance -55 -120 -130 570 Meds/Results Medications: Active Medications Generic Name Dose Route Start Last Admin Trade Name Freq PRN Reason Stop Dose Admin Acetaminophen 650 mg 09/15/22 17:02 09/30/22 17:55 Acetaminophen 325 Mg Tablet PO 650 mg Q6H PRN Administration Mild Pain (1-3) or Fever Hydrocodone Bitart/Acetaminophen 1 tab 10/05/22 21:00 10/07/22 20:44 Hydrocodone/Acetaminophen (*Crx) 5-325 Mg Tablet PO 1 tab QHS JOSE G Administration Apixaban 5 mg 09/26/22 17:00 10/08/22 16:43 Apixaban 5 Mg Tablet PO 5 mg BID JOSE G Administration Aspirin 81 mg 09/16/22 09:00 10/08/22 08:17 Aspirin 81 Mg Chewable Tablet PO 81 mg DAILY JOSE G Administration Atorvastatin Calcium 20 mg 09/16/22 09:00 10/08/22 08:17 Atorvastatin 20 Mg Tablet PO 20 mg DAILY JOSE G Administration Epoetin Aj-epbx 10,000 units 10/01/22 17:40 10/08/22 16:44 Epoetin Aj-Epbx 10,000 Units/Ml Vial SUB-Q 10,000 units MOWEFR JOSE G Administration Escitalopram Oxalate 10 mg 10/04/22 10:15 10/08/22 08:17 Escitalopram Oxalate 10 Mg Tablet PO 10 mg DAILY JOSE G Administration Gabapentin 300 mg 09/15/22 18:50 10/08/22 16:43 Gabapentin 300 Mg Capsule PO 300 mg TID JOSE G Administration Metoprolol Succinate 25 mg 09/15/22 18:50 10/08/22 16:43 Metoprolol Succinate Ext Rel 25 Mg
[2022-10-08 16:43] VITALS: PULSE 94
[2022-10-08] MEDS: EPOETIN ALFA-EPBX 10,000 UNITS/ML VIAL 10000 UNITS SUB-Q (16:44)
--- NOTE | 2022-10-08 18:35 | PM.IMPN ---
Progress Note: A&P Assessment and Plan (1) ULISSES (acute kidney injury): Code(s): N17.9 - Acute kidney failure, unspecified Status: Acute Assessment and Plan: appreciate nephrology consultation, unsure of etiology, likely multifactorial Diuretics currently being held, follow-up nephrology recommendations today, creatinine continues to improve With improved anasarca (2) Decubitus ulcer of sacral area: Code(s): L89.159 - Pressure ulcer of sacral region, unspecified stage Status: Acute Assessment and Plan: Okay to discharge back to nursing facility per general surgery with wound care, no signs of osteomyelitis in wound, on cefepime and Flagyl Appreciate wound care consult Antibiotics discontinued after completing a 14 day course (3) Chronic anticoagulation: Code(s): Z79.01 - 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 (5) Obstructive sleep apnea: Code(s): G47.33 - Obstructive sleep apnea (adult) (pediatric) Status: Acute Assessment and Plan: CPAP will be provided for the patient to use while hospitalized. (6) Physical debility: Code(s): R53.81 - Other malaise Status: Acute Assessment and Plan: Plan is for rehab/nursing facility at discharge (7) Hypertension: Code(s): I10 - Essential (primary) hypertension Status: Chronic Assessment and Plan: Blood pressures were reviewed and they are stable. (8) Normocytic anemia: Code(s): D64.9 - Anemia, unspecified Status: Acute Assessment and Plan: Iron deficiency anemia, status post Venofer Plan #Nursing? Home resident ?#Worsening sacral ulcer and drainage ? 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 Wound culture with Proteus mirabilis sensitive to ceftriaxone another bottle with Pepto only for less sec or lytic us which most likely contamination.? Remains on IV Rocephin.? Wound VAC placement planned status post debridement 09/18/2022.? Pelvic MRI ? With no evidence of osteomyelitis but sacral decubitus ulcer but the ulcer extends nearly to the level of the bone at S5 level there is noted diffuse muscle edema about the pelvis and proximal hip which nonspecific finding.? Seems like antibiotic has been switched to Augmentin until 10/02/2022 total 2 weeks Proteus mirabilis bacteremia sensitive to cefepime, switched to augmentin for total 2 weeks course.? currently on cefepime which will be continued. finished antibiotic course #Anemia acute on chronic.? Evidence of iron deficiency. ? Received Venofer.? Hyponatremia mild on salt tablet ?#ULISSES baseline creatinine 0.8-1 creatinine bumped up to 2.? Currently at 2.5 stable. urine output is not charted will add intake and output.? Stop meloxicam.? Bladder scan is negative.? 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 Unclear whether this is a colonization as this was similar when he was admitted as well Will send for urine culture already on Augmentin, which is? no growth vancomycin levels were high. 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 nephrology consulted. FeNa 0.7% prerenal. on gentle ivf which has now been stopped.? Urine output improving.? Creatinine now trending down Diuresis as ordered by oxide furnace tender # lower extremity edema: venous duplex was negative 09/15/2022. 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 ?# Right-sided effusion:? [place]
[2022-10-08] MEDS: HYDROcodone/acetaminophen (*CRX) 5-325 MG TABLET 1 TAB PO (21:02)
[2022-10-08] MEDS: TAMSULOSIN HCL 0.4 MG CAPSULE PO (21:02)
[2022-10-08 21:52] VITALS: BP 110/76; PULSE 72; RESP 12; TEMP 36.6; O2SAT 94
[2022-10-09 05:38] VITALS: BP 104/57; PULSE 66; RESP 12; TEMP 36.5; O2SAT 91
[2022-10-09 06:43] LABS: Basophils Absolute Auto 0.1 K/mm3 (0.0-0.1); Basophils Percent Auto 0.9 % (0.2-1.2); Eosinophils Absolute Auto 0.7 K/mm3 (0-0.3); Eosinophils Percent Auto 12.8 % (0-4.4); Hemoglobin 8.1 g/dL (14.0-18.0); Immature Granulocyte Absolute 0.02 K/mm3 (0.00-0.031); Immature Granulocyte Percent A 0.3 % (0-0.5); Lymphocytes Absolute Auto 1.28 K/mm3 (0.9-3.2); Lymphocytes Percent Auto 22.2 % (18.3-44.2); Mean Corpuscular HGB Conc 27.9 g/dl (32-36); Mean Corpuscular Hemoglobin 26.8 pg (26-34); Mean Platelet Volume 11.8 fl (7.4-10.4); Monocytes Absolute Auto 0.5 K/mm3 (0.1-0.6); Neutrophils Absolute Auto 3.2 K/mm3 (1.3-6.7); Neutrophils Percent Auto 54.8 % (45.5-73.1); Nucleated Red Blood Cells Perc 0.3 % (0.0-0.2); Platelet Count Result 196 k/mm3 (150-375); Red Blood Count 3.02 M/mm3 (4.6-6.20); Red Cell Distribution Width 22.1 % (11.5-14.5); White Blood Count 5.8 K/mm3 (4.5-10.0)
[2022-10-09 06:53] LABS: Alanine Aminotransferase 15 U/L (6-50); Albumin Level 2.5 g/dL (3.5-5.1); Alkaline Phosphatase 65 U/L (38-126); Anion Gap 4 mmol/L (8-16); Aspartate Amino Transferase 20 U/L (17-59); Bilirubin,Total 0.5 mg/dL (0.2-1.3); Blood Urea Nitrogen 80 mg/dL (9-20); Calcium 8.2 mg/dL (8.4-10.2); Carbon Dioxide 33 mmol/L (22-30); Chloride 105 mmol/L (98-107); Estimated CRCL calculation 48 ml/min; Estimated Glomerular Filt Rate 50; Glucose 87 mg/dL (65-110); Magnesium 1.9 mg/dL (1.6-2.3); Potassium 3.9 mmol/L (3.4-5.0); Sodium 142 mmol/L (137-145)
--- NOTE | 2022-10-09 07:26 | PC.NURSE ---
agree with ivett rn charting and documentation
[2022-10-09 07:58] LABS: Ovalocytes 1+ (NORMAL); Platelet Estimate Adequate (Adequate)
[2022-10-09 07:59] LABS: Acanthocytes 1+ (NORMAL); Burr Cells 1+ (NORMAL); Schistocytes None Seen (NORMAL)
[2022-10-09] MEDS: METOPROLOL SUCCINATE EXT REL 25 MG TABCR PO ×2 (08:32→18:41)
[2022-10-09] MEDS: ASPIRIN 81 MG CHEWABLE TABLET PO (08:32)
[2022-10-09] MEDS: APIXABAN 5 MG TABLET PO ×2 (08:32→18:41)
[2022-10-09] MEDS: ATORVASTATIN 20 MG TABLET PO (08:33)
[2022-10-09] MEDS: ESCITALOPRAM OXALATE 10 MG TABLET PO (08:33)
[2022-10-09] MEDS: SODIUM CHLORIDE 1 GM TABLET PO (08:33)
[2022-10-09] MEDS: GABAPENTIN 300 MG CAPSULE PO ×3 (08:33→18:41)
[2022-10-09] MEDS: SILVERGEL (ELTA) 45 ML 1 APPLIC TOPICAL (08:33)
[2022-10-09] MEDS: POTASSIUM CHLORIDE 20 MEQ TABLET.ER 40 MEQ PO (08:33)
--- NOTE | 2022-10-09 13:24 | PM.PNNEP ---
Progress Note: A&P Assessment and Plan (1) ULISSES (acute kidney injury): Code(s): N17.9 - Acute kidney failure, unspecified Status: Acute Assessment and Plan: resolving baseline creatinine is normal evaluation to date: urine electrolytes pre renal Ultrasound shows normal solitary kidney CPK normal peripheral eosinophilia noted renal scan shows the 1 kidney with uptake but poor excretion suspect this is ATN due to pre renal azotemia and infection allergic interstitial nephritis is possible -- removed all offending agents diuretics were reduced consider weaning off diuretics closer to discharge (2) Decubitus ulcer of sacral area: Code(s): L89.159 - Pressure ulcer of sacral region, unspecified stage Status: Acute Assessment and Plan: as noted on admission concerns for osteomyelitis but imaging negative General Surgery and wound care following s/p debridement (3) Hypertension: Code(s): I10 - Essential (primary) hypertension Status: Chronic Assessment and Plan: reasonable control follow trend of hemodynamics (4) Normocytic anemia: Code(s): D64.9 - Anemia, unspecified Status: Acute Assessment and Plan: H/H on the low side but stable getting Epogen while hospitalized follow trend (5) Physical debility: Code(s): R53.81 - Other malaise Status: Acute Assessment and Plan: seems somewhat bed-bound PT/OT as tolerated Would not be opposed to discharge from renal perspective if otherwise medically stable. Will continue to follow. Subjective Date/time seen: 10/09/22 13:24 No new issues or problems to report at this time; renal function continues to improve as noted by AM labs; no apparent distress noted at the time of my visit. Exam Narrative: General: WD/WN elderly male in NAD Heart: normal S1 and S2; no rub Lungs: clear bilaterally Abdomen: soft, nontender, nondistended, positive bowel sounds Extremities: no cyanosis or clubbing; 1+ bilateral edema (worse on left which is chronic) Skin: warm and intact Objective Data Vital Signs Vital Signs: Vital Signs Temp Pulse Resp BP Pulse Ox O2 Del Method 10/09/22 08:00 Room Air 10/09/22 05:38 97.7 F 66 12 104/57 L 91 10/08/22 20:00 Room Air 10/08/22 21:52 97.8 F 72 12 110/76 94 10/08/22 16:43 94 Intake/Output Intake/Output: Intake & Output 10/06/22 10/07/22 10/08/22 10/09/22 23:59 23:59 23:59 23:59 Intake Total 1030 1120 1170 390 Output Total 1150 9638 389 8900 Balance -120 -130 570 -1010 Meds/Results Medications: Active Medications Generic Name Dose Route Start Last Admin Trade Name Vinod PRN Reason Stop Dose Admin Acetaminophen 650 mg 09/15/22 17:02 09/30/22 17:55 Acetaminophen 325 Mg Tablet PO 650 mg Q6H PRN Administration Mild Pain (1-3) or Fever Hydrocodone Bitart/Acetaminophen 1 tab 10/05/22 21:00 10/08/22 21:02 Hydrocodone/Acetaminophen (*Crx) 5-325 Mg Tablet PO 1 tab QHS JOSE G Administration Apixaban 5 mg 09/26/22 17:00 10/09/22 08:32 Apixaban 5 Mg Tablet PO 5 mg BID JOSE G Administration Aspirin 81 mg 09/16/22 09:00 10/09/22 08:32 Aspirin 81 Mg Chewable Tablet PO 81 mg DAILY JOSE G Administration Atorvastatin Calcium 20 mg 09/16/22 09:00 10/09/22 08:33 Atorvastatin 20 Mg Tablet PO 20 mg DAILY JOSE G Administration Epoetin Aj-epbx 10,000 units 10/01/22 17:40 10/08/22 16:44 Epoetin Aj-Epbx 10,000 Units/Ml Vial SUB-Q 10,000 units MOWEFR JOSE G Administration Escitalopram Oxalate 10 mg 10/04/22 10:15 10/09/22 08:33 Escitalopram Oxalate 10 Mg Tablet PO 10 mg DAILY JOSE G Administration Gabapentin 300 mg 09/15/22 18:50 10/09/22 12:16 Gabapentin 300 Mg Capsule PO 300 mg TID JOSE G Administration Metoprolol Succinate 25 mg 09/15/22 18:50 10/09/22 08:32 Metoprolol Succinate E
--- NOTE | 2022-10-09 13:24 | P.PNNP_ITS ---
Progress Note: A&P Assessment and Plan (1) ULISSES (acute kidney injury): Code(s): N17.9 - Acute kidney failure, unspecified Status: Acute Assessment and Plan: * resolving * baseline creatinine is normal * evaluation to date: * urine electrolytes pre renal * Ultrasound shows normal solitary kidney * CPK normal * peripheral eosinophilia noted * renal scan shows the 1 kidney with uptake but poor excretion * suspect this is ATN due to pre renal azotemia and infection * allergic interstitial nephritis is possible -- removed all offending agents * diuretics were reduced * consider weaning off diuretics closer to discharge (2) Decubitus ulcer of sacral area: Code(s): L89.159 - Pressure ulcer of sacral region, unspecified stage Status: Acute Assessment and Plan: * as noted on admission * concerns for osteomyelitis but imaging negative * General Surgery and wound care following * s/p debridement (3) Hypertension: Code(s): I10 - Essential (primary) hypertension Status: Chronic Assessment and Plan: * reasonable control * follow trend of hemodynamics (4) Normocytic anemia: Code(s): D64.9 - Anemia, unspecified Status: Acute Assessment and Plan: * H/H on the low side but stable * getting Epogen while hospitalized * follow trend (5) Physical debility: Code(s): R53.81 - Other malaise Status: Acute Assessment and Plan: * seems somewhat bed-bound * PT/OT as tolerated Would not be opposed to discharge from renal perspective if otherwise medically stable. Will continue to follow. Subjective Date/time seen: 10/09/22 13:24 No new issues or problems to report at this time; renal function continues to improve as noted by AM labs; no apparent distress noted at the time of my visit. Exam Narrative: General: WD/WN elderly male in NAD Heart: normal S1 and S2; no rub Lungs: clear bilaterally Abdomen: soft, nontender, nondistended, positive bowel sounds Extremities: no cyanosis or clubbing; 1+ bilateral edema (worse on left which is chronic) Skin: warm and intact Objective Data Vital Signs Vital Signs: Vital Signs Temp Pulse Resp BP Pulse Ox O2 Del Method 10/09/22 08:00 Room Air 10/09/22 05:38 97.7 F 66 12 104/57 L 91 10/08/22 20:00 Room Air 10/08/22 21:52 97.8 F 72 12 110/76 94 10/08/22 16:43 94 Intake/Output Intake/Output: Intake & Output 10/06/22 10/07/22 10/08/22 10/09/22 23:59 23:59 23:59 23:59 Intake Total 1030 1120 1170 390 Output Total 1150 4899 819 6793 Balance -120 -130 570 -1010 Meds/Results Medications: Active Medications Generic Name Dose Route Start Last Admin Trade Name Freq PRN Reason Stop Dose Admin Acetaminophen 650 mg 09/15/22 17:02 09/30/22 17:55 Acetaminophen 325 Mg Tablet PO 650 mg Q6H PRN Administration Mild Pain (1-3) or Fever Hydrocodone Bitart/Acetaminophen 1 tab 10/05/22 21:00 10/08/22 21:02 Hydrocodone/Acetaminophen (*Crx) 5-325 Mg Tablet PO 1 tab QHS JOSE G Administration Apixaban 5 mg 09/26/22 17:00 10/09/22 08
--- NOTE | 2022-10-09 13:53 | PM.DS ---
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 Home resident ?# presented with Worsening sacral ulcer and drainage ? #Sacral decubitus ulcer with possible osteomyelitis initially started on vancomycin cefepime. Debridement was planned however postponed due to anemia .? Wound culture with Proteus mirabilis sensitive to ceftriaxone another bottle with Peptonihilus assachrolyticus which most likely contamination.? Remains on IV Rocephin.? Wound VAC placement planned status post debridement 09/18/2022.? Pelvic MRI perform which showed no evidence of osteomyelitis but sacral decubitus ulcer but the ulcer extends nearly to the level of the bone at S5 level there is noted diffuse muscle edema about the pelvis and proximal hip which nonspecific finding. He also had Proteus mirabilis bacteremia sensitive to cefepime, switched to augmentin for total 2 weeks course.? currently on cefepime which will be continued. finished antibiotic course during the hospital stay. He will need to continue dressing changes and decubitus ulcer prophylaxis precautions ?# Anemia acute on chronic.? Evidence of iron deficiency. ? Received Venofer.? H&H remained stable throughout the hospital stay # Hyponatremia mild on salt tablet ?#ULISSES baseline creatinine 0.8-1 creatinine bumped up to 2 during the hospital stay. Worsened mid 2s with oliguria. Meloxicam was stopped. He did have peripheral eosinophilia. Vancomycin level was also. Bladder scan is negative.? Renal ultrasound with unremarkable left kidney a bladder right kidney not seen history of nephrectomy in the past Nephrology was consulted. FeNa 0.7% prerenal. Renal scan was done showed 1 kidney with uptake but poor excretion more consistent with ATN. Allergic interstitial nephritis also possible. His creatinine continued to improve and was 1.4 by the time of discharge # lower extremity edema:? venous duplex was negative 09/15/2022.? This improved with diuresis. He was no longer on diuretic at the time of discharge with resolution of lower extremity edema #?episode of unresponsiveness post debridement no further recurrence ?# History of stroke in 2006 with left-sided weakness. ?# Right-sided effusion:? Further evaluated with CT chest.? Status post thoracentesis. Pleural fluid analysis suggestive of transudative effusion. This is likely part of the fluid overload that he had due to renal failure. # gallbladder wall distension / thickening? right upper quadrant ultrasound reviewed.? Suspect related to anasarca. No abdominal pain to suggest acute cholecystitis ?# DVT prophylaxis on Eliquis Code status full code Time Spent with Patient Time attestation: Total time spent providing and/or coordinating discharge services: 50 minutes Exam Narrative: General: No acute distress, alert and oriented per baseline HEENT: Atraumatic, normocephalic, mucous membranes moist CV: Regular rate an
[2022-10-09 14:00] VITALS: BP 143/79; PULSE 67; RESP 16; TEMP 36; O2SAT 96
[2022-10-09 14:37] LABS: EDCOVIDSCREEN Negative (Negative)
== END 2022-10-09 07:30 | DRG 580 ==
LOC: ANHED 13:01 → ANH3MEDSUR 15:21 → ANHED 15:33 → ANH3MEDSUR 15:35
PROVIDERS: Internal Medicine Nephrology; Physician Assistant; Student in an Organized Health Care Education/Training Program; Surgery; Admitting Provider Family Medicine; Emergency Provider Emergency Medicine; Visit Provider Internal Medicine
PROC: 0KBP0ZZ Excision of Left Hip Muscle, Open Approach (ICD-10-PCS; principal; 2022-09-18 12:00)
DX: L89.154 Pressure ulcer of sacral region, stage 4 (principal); E87.1 Hypo-osmolality and hyponatremia; R78.81 Bacteremia; N17.9 Acute kidney failure, unspecified; J90 Pleural effusion, not elsewhere classified; I69.351 Hemiplegia and hemiparesis following cerebral infarction affecting right dominant side; L89.612 Pressure ulcer of right heel, stage 2; I25.10 Atherosclerotic heart disease of native coronary artery without angina pectoris; I10 Essential (primary) hypertension; D72.10 Eosinophilia, unspecified; D50.9 Iron deficiency anemia, unspecified; E87.70 Fluid overload, unspecified; E78.5 Hyperlipidemia, unspecified; N40.0 Benign prostatic hyperplasia without lower urinary tract symptoms; R41.82 Altered mental status, unspecified; R23.4 Changes in skin texture; G47.33 Obstructive sleep apnea (adult) (pediatric); B96.4 Proteus (mirabilis) (morganii) as the cause of diseases classified elsewhere; Z20.822 Contact with and (suspected) exposure to COVID-19; Z87.891 Personal history of nicotine dependence; Z79.01 Long term (current) use of anticoagulants; Z95.5 Presence of coronary angioplasty implant and graft; Z90.5 Acquired absence of kidney
CPT/HCPCS: 32555; 36415; 36430; 70450; 71045; 71250; 72197; 72220; 76705; 76775; 78707; 80048; 80053; 80069; 80202; 81001; 81050; 82042; 82150; 82274; 82436; 82550; 82565; 82570; 82607; 82728; 82746; 82945; 82948; 83540; 83550; 83605; 83615; 83735; 83874; 83880; 83986; 84100; 84132; 84156; 84157; 84300; 84311; 84443; 84478; 84540; 85025; 85027; 85046; 85610; 85730; 85999; 86140; 86850; 86900; 86901; 86923; 87040; 87070; 87075; 87076; 87077; 87086; 87088; 87186; 87205; 87426; 87637; 89051; 93005; 93970; 96366; 96367; 96375; 99285; A9270; A9562; A9577; C1729; C9803; G0378; J0692; J0743; J1650; J1756; J1940; J2704; J3010; J3370; J7030; J7050; J7120; P9016; Q5105

== ENCOUNTER 2022-10-19 11:08 | Emergency (ER) | payer OTHER, SELFPAY ==
[2022-10-19] VITALS (27 sets, daily range): BP systolic 121–145; BP diastolic 76–93; PULSE 69–99; RESP 12–21; TEMP 36.8; O2SAT 96–97
--- NOTE | ~2022-10-19 | CT_ITS ---
EXAMINATION: CT brain wo con DATE: 10/19/2022 15:20 INDICATION: fall, anticoagulation . TECHNIQUE: Computed tomography (CT) of the head was performed without intravenous contrast. The mA wa s adjusted according to patient size. Iterative reconstruction technique was employed. The dose-lengt h product was 605.33 mGy-cm. COMPARISON: 09/18/2022. FINDINGS: No acute intracranial hemorrhage or extra-axial fluid collection. No hydrocephalus, mass, or herniation. No acute ischemic infarct. Unremarkable dural venous sinus attenuation. No acute osseous abnormality. Right mastoid effusion, without erosion. Small left maxillary retention cyst or polyp, the remaining aerated spaces are clear. Mild atrophy and chronic white matter change. Atherosclerotic intracranial calcification. Old right b marck ganglia and posterior frontal encephalomalacia. Old left basal ganglia lacunar infarct. IMPRESSION: No acute intracranial process. Reviewed, dictated and finalized at location K. SHAPER
--- NOTE | ~2022-10-19 | CT_ITS ---
EXAMINATION: CT pelvis wo con DATE: 10/19/2022 15:20 INDICATION: Left groin pain fall, rule out pelvic fracture TECHNIQUE: Computed tomography (CT) of the pelvis was performed without intravenous contrast. Automat ed exposure control and iterative reconstruction technique were employed. The dose-length product was 782.77 mGy-cm. COMPARISON: X-ray pelvis, same date. MR pelvis 09/24/2022 FINDINGS: Degenerative disc disease and severe facet arthropathy in the lower lumbar spine. Left SI j oint fusion. Moderate bilateral hip osteoarthritis. Scattered pelvic and hip enthesopathy. Left femor al head bone island. Atherosclerotic arterial calcifications. Diverticulosis. Starks catheter is infla tommy within the prostate. Urinary bladder distention with wall thickening. Large sacral decubitus ulce r. Adjacent areas of sacral sclerosis and erosion versus surgical change. IMPRESSION: 1. The balloon of the Starks catheter is inflated within the prostatic urethra, correlate with cathete r function and consider repositioning/replacement. 2. No acute osseous finding in the pelvis. 3. Large sacral decubitus ulcer with chronic sacral osteomyelitis versus surgical change. Results reported telephonically to Dr. Gallardo by Dr. Hernandez at 3:41 PM on 10/19/2022. Reviewed, dictated and finalized at location K. INSPECTOR IMPRESSION: 1. The balloon of the Starks catheter is inflated within the prostatic urethra, correlate with catheter function and consider repositioning/replacement. 2. No acute osseous finding in the pelvis. 3. Large sacral decubitus ulcer with chronic sacral osteomyelitis versus surgic al change. Results reported telephonically to Dr. Gallardo by Dr. Hernandez at 3:41 PM on 023.
--- NOTE | ~2022-10-19 | XR_ITS ---
XR pelvis 1-2V 10/19/2022 12:17 Indication: Left hip pain Procedure: AP pelvis Comparison: 09/15/2022 Findings: There is osteoarthritis of the hips. There is lower lumbar spondylosis. Pelvic rings are in tact. No acute fracture or traumatic malalignment. Impression: 1: No acute fracture. Reviewed, dictated and finalized at location A. LIANCE CONSULTANT Impression: 1: No acute fracture.
--- NOTE | 2022-10-19 11:52 | ECG_ITS ---
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
[2022-10-19 12:09] LABS: Basophils Percent Auto 0.6 % (0.2-1.2); Eosinophils Absolute Auto 0.5 K/mm3 (0-0.3); Eosinophils Percent Auto 6.8 % (0-4.4); Hematocrit 32.9 % (42.0-52.0); Hemoglobin 9.6 g/dL (14.0-18.0); Immature Granulocyte Absolute 0.03 K/mm3 (0.00-0.031); Immature Granulocyte Percent A 0.4 % (0-0.5); Lymphocytes Absolute Auto 0.99 K/mm3 (0.9-3.2); Lymphocytes Percent Auto 14.2 % (18.3-44.2); Mean Corpuscular HGB Conc 29.2 g/dl (32-36); Mean Corpuscular Volume 95.9 fl (80-100); Mean Platelet Volume 12.5 fl (7.4-10.4); Monocytes Absolute Auto 0.8 K/mm3 (0.1-0.6); Monocytes Percent Auto 11.4 % (2.6-8.5); Neutrophils Absolute Auto 4.6 K/mm3 (1.3-6.7); Neutrophils Percent Auto 66.6 % (45.5-73.1); Platelet Count Result 194 k/mm3 (150-375); Red Blood Count 3.43 M/mm3 (4.6-6.20); Red Cell Distribution Width 19.8 % (11.5-14.5)
[2022-10-19 12:28] LABS: Alanine Aminotransferase 15 U/L (6-50); Albumin Level 2.8 g/dL (3.5-5.1); Alkaline Phosphatase 78 U/L (38-126); Anion Gap 3 mmol/L (8-16); Aspartate Amino Transferase 18 U/L (17-59); Bilirubin,Total 0.7 mg/dL (0.2-1.3); Blood Urea Nitrogen 20 mg/dL (9-20); Calcium 8.2 mg/dL (8.4-10.2); Carbon Dioxide 34 mmol/L (22-30); Chloride 100 mmol/L (98-107); Estimated CRCL calculation 48 ml/min; Estimated Glomerular Filt Rate 54; Glucose 99 mg/dL (65-110); Sodium 137 mmol/L (137-145)
[2022-10-19 12:29] LABS: Platelet Estimate Adequate (Adequate)
[2022-10-19 12:30] LABS: Anisocytosis 1+ (NORMAL); Burr Cells 1+ (NORMAL); Ovalocytes 1+ (NORMAL)
[2022-10-19 12:33] LABS: Schistocytes None Seen (NORMAL)
--- NOTE | 2022-10-19 12:52 | ED.FALL ---
HPI - Fall General Chief Complaint: Fall Stated Complaint: glf + thinners Time Seen by Provider: 10/19/22 11:28 Source: patient, EMS, RN notes reviewed and old records reviewed Mode of arrival: EMS Limitations: no limitations History of Present Illness HPI Narrative: This is a 72 year old male with history of CVA, hypertension, and hyperlipidemia who presents for evaluation of ground level fall. Patient is alert and oriented x 4 and able to tell what happened. He states that he was sitting up to eat and he slid out of the bed. He states he fell onto his buttock and he did not hit his head. He also denies LOC. He denies headache, chest pain, abdominal pain, extremity pain or any pain. He has no complaints. He denies any weakness. He states he was hospitalized last month for treatment of a decubitus ulcer that that is improving. He denies fever or chills. He does take eliquis. Related Data Home Medications Medication Instructions Recorded Confirmed aspirin 81 mg chewable tablet 81 mg PO DAILY 12/20/19 09/15/22 (Juvenal Chewable Low Dose Aspirin) atorvastatin 20 mg tablet 20 mg PO DAILY 12/20/19 09/15/22 metoprolol succinate 100 mg 25 mg PO BID 12/20/19 09/15/22 tablet,extended release 24 hr apixaban 5 mg tablet (Eliquis) 5 mg PO BID 09/15/22 09/15/22 gabapentin 300 mg capsule 300 mg PO TID 09/15/22 09/15/22 tamsulosin 0.4 mg capsule 0.4 mg PO HS 09/15/22 09/15/22 Allergies Allergy/AdvReac Type Severity Reaction Status Date / Time No Known Allergies Allergy Verified 10/19/22 11:14 Review of Systems Constitutional: Constitutional: Denies weakness Cardiovascular: Cardiovascular: Denies syncope, Denies rapid heart rate, Denies irregular heart rhythm, Denies leg edema and Denies dyspnea Respiratory: Respiratory: Denies chest congestion, Denies hemoptysis, Denies excessive phlegm production and Denies dyspnea Gastrointestinal: Gastrointestinal: Denies abdominal pain, Denies hematochezia, Denies diarrhea and Denies vomiting Genitourinary: Genitourinary: Denies hematuria, Denies dysuria, Denies penile discharge and Denies testicular pain Musculoskeletal: Musculoskeletal: Denies joint swelling, Denies loss of height and Denies muscle weakness Neurologic: Denies syncope, Reports focal weakness (left side weakness, from prior CVA) and Denies weakness PMFSH Past Medical History Medical History Chronic anticoagulation Coronary artery disease Eosinophilia Essential hypertension History of tobacco abuse Hyperlipemia Hypertension Obstructive sleep apnea Stroke (2006) Residual left-sided weakness. Surgical History Surgical History History of arthroplasty of right knee History of cardiac catheterization History of colonoscopy History of coronary artery stent placement History of nephrectomy, right Reportedly for large kidney stones. Family History Family History (Updated 09/15/22 @ 18:15 by Pilar Nava PA-C) Other Heart disease Hypertension Social History Social History Social History: Surrogate medical decision maker: Nelda Najera, daughter. Code status: Full code. Smoking packs per day: 1 Smoking cigarettes per day: 20.0 Years smoked: 40 Smoking pack-years: 40.00 Smoking status: Former smoker Tobacco type: cigarettes Second hand tobacco smoke exposure: Yes Smoking end date: 10/12/06 Additional smoking assessment comments: quit in 2009 Alcohol intake: never Substance use: never Lack of Transportation: No Lack of Food: Never True Current Housing: I Have Housing Concerned About Future Housing: Decline to Answer Difficulty Paying Gas/Electric Bills: Decline to Answer Difficulty Paying for Meds: Decline to Answer Currently Unemployed: Decline to Answer Education: Decline to Answer Difficult
== END 2022-10-19 17:00 ==
PROVIDERS: Emergency Provider General Practice
DX: R10.32 Left lower quadrant pain (principal); L89.159 Pressure ulcer of sacral region, unspecified stage; I25.10 Atherosclerotic heart disease of native coronary artery without angina pectoris; I10 Essential (primary) hypertension; E78.5 Hyperlipidemia, unspecified; I69.354 Hemiplegia and hemiparesis following cerebral infarction affecting left non-dominant side; G47.33 Obstructive sleep apnea (adult) (pediatric); Z96.651 Presence of right artificial knee joint; Z90.5 Acquired absence of kidney; Z95.5 Presence of coronary angioplasty implant and graft; Z87.442 Personal history of urinary calculi; Z87.891 Personal history of nicotine dependence; Z79.82 Long term (current) use of aspirin; Z79.01 Long term (current) use of anticoagulants; W06.XXXA Fall from bed, initial encounter
CPT/HCPCS: 36415; 51702; 70450; 72170; 72192; 80053; 85025; 93005; 96374; 99284; J0131

== ENCOUNTER 2023-01-30 00:03 | Emergency (ER) | payer OTHER, SELFPAY ==
[2023-01-30 00:03] VITALS: BP 117/74; RESP 81; TEMP 37; O2SAT 97
[2023-01-30 00:46] VITALS: BP 103/66; PULSE 81; RESP 18; O2SAT 95
--- NOTE | 2023-01-30 00:59 | ED.MALEGU ---
HPI - Male Genitourinary General Chief complaint: Urogenital-Male Stated complaint: painful urination Time Seen by Provider: 01/30/23 00:12 History of Present Illness HPI Narrative: 72-year-old male presenting with dysuria. Patient states that he has had a Starks catheter in due to a sacral ulcer. States he has a wound VAC in place and his sacral ulcer is almost resolved. States that his catheter was changed earlier today but he has been having penile pain off and on for the last several days. States that this happened recently and he had to be placed on antibiotics for a UTI. He denies any other symptoms. He denies fevers or chills, abdominal pain, nausea or vomiting, diarrhea, rashes. Related Data Home Medications Medication Instructions Recorded Confirmed aspirin 81 mg chewable tablet 81 mg PO DAILY 12/20/19 09/15/22 (Juvenal Chewable Low Dose Aspirin) atorvastatin 20 mg tablet 20 mg PO DAILY 12/20/19 09/15/22 metoprolol succinate 100 mg 25 mg PO BID 12/20/19 09/15/22 tablet,extended release 24 hr apixaban 5 mg tablet (Eliquis) 5 mg PO BID 09/15/22 09/15/22 gabapentin 300 mg capsule 300 mg PO TID 09/15/22 09/15/22 tamsulosin 0.4 mg capsule 0.4 mg PO HS 09/15/22 09/15/22 Allergies Allergy/AdvReac Type Severity Reaction Status Date / Time No Known Allergies Allergy Verified 01/30/23 00:09 Review of Systems Review of Systems: All systems reviewed & are unremarkable except as noted in HPI and below PMFSH Past Medical History Medical History Chronic anticoagulation Coronary artery disease Eosinophilia Essential hypertension History of tobacco abuse Hyperlipemia Hypertension Obstructive sleep apnea Stroke (2006) Residual left-sided weakness. Surgical History Surgical History History of arthroplasty of right knee History of cardiac catheterization History of colonoscopy History of coronary artery stent placement History of nephrectomy, right Reportedly for large kidney stones. Family History Family History Other Heart disease Hypertension Social History Social History Social History: Surrogate medical decision maker: Nelda Najera, daughter. Code status: Full code. Smoking packs per day: 1 Smoking cigarettes per day: 20.0 Years smoked: 40 Smoking pack-years: 40.00 Smoking status: Former smoker Tobacco type: cigarettes Second hand tobacco smoke exposure: Yes Smoking end date: 10/12/06 Additional smoking assessment comments: quit in 2009 Alcohol intake: never Substance use: never Lack of Transportation: No Lack of Food: Never True Current Housing: I Have Housing Concerned About Future Housing: Decline to Answer Difficulty Paying Gas/Electric Bills: Decline to Answer Difficulty Paying for Meds: Decline to Answer Currently Unemployed: Decline to Answer Education: Decline to Answer Difficulty w/ Childcare or Family Care: Decline to Answer Additional living arrangements comments: Currently in [facility]. 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 Spiritual care concerns: No Exam Narrative: GENERAL: Well-appearing, well-nourished, and in no acute distress. HEAD: Normocephalic, atraumatic. EYES: PERRLA and EOMI. ENT: Nares clear, no rhinorrhea or epistaxis. Mucous membranes moist. NECK: Supple. CHEST: Clear to auscultation. No respiratory distress. HEART: Regular rate and rhythm. Normal peripheral pulses. ABDOMEN: Soft, nontender, nondistended, no guarding or rebound; urinary catheter is in place EXTREMITIES: Normal range of motion. No edema. SKIN: Warm, dry, no rash. NEURO: No focal deficits. Alert and oriented x3. PSYCH: Normal mood and affect. Course Vital Signs Vital signs
[2023-01-30 01:09] LABS: Appearance Urine Turbid (Clear); Bacteria Urine 4+ /hpf; Bilirubin Urine Negative (Negative); Blood Urine 3+ (Negative); Color Urine Yellow (Yellow); Glucose Urine UA Negative (Negative); Hyaline Casts Urine Present /lpf; Ketones Urine Negative (Negative); Leukocyte Esterase Ur 3+ LEU/UL (Negative); Nitrate Urine Negative (Negative); Protein Urine 1+ mg/dL (Negative); RBC Urine 51-100 /hpf (0-2); Specific Grav Ur 1.014 (1.001-1.035); Squamous Epithelial Cell Urine None seen /hpf (Few); Urobilinogen Urine 0.2 mg/dL (<2.0); WBC Urine >100 /hpf; pH Urine 6.5 (5.0-9.0)
[2023-01-30 02:41] LABS: Add Urine Microscopic? YES
[2023-01-30] MEDS: CEPHALEXIN 500 MG CAPSULE (02:42)
[2023-01-30 03:01] VITALS: BP 149/84; PULSE 77; RESP 18; O2SAT 99
== END 2023-01-30 03:03 ==
PROVIDERS: Emergency Provider Emergency Medicine
DX: N39.0 Urinary tract infection, site not specified (principal); I25.10 Atherosclerotic heart disease of native coronary artery without angina pectoris; E78.5 Hyperlipidemia, unspecified; I10 Essential (primary) hypertension; Z86.73 Personal history of transient ischemic attack (TIA), and cerebral infarction without residual deficits; Z87.891 Personal history of nicotine dependence
CPT/HCPCS: 81001; 87077; 87086; 87186; 99283; A9270

== ENCOUNTER 2023-05-04 15:49 | Emergency (ER) | payer OTHER, SELFPAY ==
[2023-05-04] VITALS (16 sets, daily range): BP systolic 128–161; BP diastolic 72–85; PULSE 68–75; RESP 15–21; TEMP 36.6; O2SAT 91–100
[2023-05-04 16:40] LABS: Basophils Absolute Auto 0.1 K/mm3 (0.0-0.1); Basophils Percent Auto 0.6 % (0.2-1.2); Eosinophils Absolute Auto 0.7 K/mm3 (0-0.3); Hematocrit 31.8 % (42.0-52.0); Hemoglobin 9.8 g/dL (14.0-18.0); Immature Granulocyte Absolute 0.03 K/mm3 (0.00-0.031); Immature Granulocyte Percent A 0.3 % (0-0.5); Lymphocytes Absolute Auto 1.27 K/mm3 (0.9-3.2); Lymphocytes Percent Auto 14.4 % (18.3-44.2); Mean Corpuscular HGB Conc 30.8 g/dl (32-36); Mean Corpuscular Hemoglobin 28.8 pg (26-34); Mean Corpuscular Volume 93.5 fl (80-100); Mean Platelet Volume 10.5 fl (7.4-10.4); Monocytes Absolute Auto 0.9 K/mm3 (0.1-0.6); Monocytes Percent Auto 10.2 % (2.6-8.5); Neutrophils Absolute Auto 5.9 K/mm3 (1.3-6.7); Neutrophils Percent Auto 66.5 % (45.5-73.1); Platelet Count Result 254 k/mm3 (150-375); Red Cell Distribution Width 17.3 % (11.5-14.5); White Blood Count 8.9 K/mm3 (4.5-10.0)
[2023-05-04 16:53] LABS: Alanine Aminotransferase 14 U/L (6-50); Albumin Level 3.8 g/dL (3.5-5.1); Alkaline Phosphatase 64 U/L (38-126); Anion Gap 8 mmol/L (8-16); Aspartate Amino Transferase 20 U/L (17-59); Bilirubin,Total 0.6 mg/dL (0.2-1.3); Blood Urea Nitrogen 50 mg/dL (9-20); Calcium 8.7 mg/dL (8.4-10.2); Carbon Dioxide 25 mmol/L (22-30); Chloride 104 mmol/L (98-107); Estimated CRCL calculation 38 ml/min; Estimated Glomerular Filt Rate 40; Glucose 92 mg/dL (65-110); Potassium 4.8 mmol/L (3.4-5.0); Sodium 137 mmol/L (137-145)
[2023-05-04 17:05] LABS: Appearance Urine Turbid (Clear); Bacteria Urine 4+ /hpf; Bilirubin Urine Negative (Negative); Blood Urine 3+ (Negative); Color Urine Yellow (Yellow); Glucose Urine UA Negative (Negative); Ketones Urine Negative (Negative); Leukocyte Esterase Ur 3+ LEU/UL (Negative); Nitrate Urine Negative (Negative); Non Pathogenic Casts >20; Protein Urine 2+ mg/dL (Negative); RBC Urine >100 /hpf (0-2); Specific Grav Ur 1.014 (1.001-1.035); Squamous Epithelial Cell Urine Occasional /hpf (Few); Triple Phosphate Crystal Urine Present /hpf; Urobilinogen Urine 0.2 mg/dL (<2.0); WBC Urine 21-50 /hpf; pH Urine >=9.0 (5.0-9.0)
[2023-05-04 17:12] LABS: Add Urine Microscopic? YES
--- NOTE | 2023-05-04 17:20 | PC.NURSE ---
750ml of yellow,cloudy urine drained from the Starks cath bag.
--- NOTE | 2023-05-04 17:50 | PC.NURSE ---
Starks cath not draining, flushed with 100 ml NS with no success. Per EDP verbal order new Starks cath 18f with 10 ml cc balloon placed in. New Starks cath is draining yellow cloudy urine, pt tolerated procedure without difficulty.
--- NOTE | 2023-05-04 17:57 | ED.GENADULT ---
HPI - General Adult General Chief complaint: Urogenital-Male Stated complaint: blood in urine Time Seen by Provider: 05/04/23 16:04 History of Present Illness HPI narrative: 73-year-old male present emergency department for evaluation of urinary pain even with a Starks catheter in place. [facility] was concerned the patient had a urinary tract infection but patient preferred to have follow-up with the hospital for evaluation rather than being started on antibiotics at the correction. Patient states he had his Starks catheter changed on Thursday and has since had increased pain. Related Data Home Medications Medication Instructions Recorded Confirmed aspirin 81 mg chewable tablet 81 mg PO DAILY 12/20/19 09/15/22 (Juvenal Chewable Low Dose Aspirin) atorvastatin 20 mg tablet 20 mg PO DAILY 12/20/19 09/15/22 metoprolol succinate 100 mg 25 mg PO BID 12/20/19 09/15/22 tablet,extended release 24 hr apixaban 5 mg tablet (Eliquis) 5 mg PO BID 09/15/22 09/15/22 gabapentin 300 mg capsule 300 mg PO TID 09/15/22 09/15/22 tamsulosin 0.4 mg capsule 0.4 mg PO HS 09/15/22 09/15/22 Allergies Allergy/AdvReac Type Severity Reaction Status Date / Time No Known Allergies Allergy Verified 05/04/23 16:00 Review of Systems Review of Systems: All systems reviewed & are unremarkable except as noted in HPI and below PMFSH Past Medical History Medical History Chronic anticoagulation Coronary artery disease Eosinophilia Essential hypertension History of tobacco abuse Hyperlipemia Hypertension Obstructive sleep apnea Stroke (2006) Residual left-sided weakness. Surgical History Surgical History History of arthroplasty of right knee History of cardiac catheterization History of colonoscopy History of coronary artery stent placement History of nephrectomy, right Reportedly for large kidney stones. Family History Family History Other Heart disease Hypertension Social History Social History Social History: Surrogate medical decision maker: Nelda Najera, daughter. Code status: Full code. Smoking packs per day: 1 Smoking cigarettes per day: 20.0 Years smoked: 40 Smoking pack-years: 40.00 Smoking status: Former smoker Tobacco type: cigarettes Second hand tobacco smoke exposure: Yes Smoking end date: 10/12/06 Additional smoking assessment comments: quit in 2009 Alcohol intake: never Substance use: never Lack of Transportation: No Lack of Food: Never True Current Housing: I Have Housing Concerned About Future Housing: Decline to Answer Difficulty Paying Gas/Electric Bills: Decline to Answer Difficulty Paying for Meds: Decline to Answer Currently Unemployed: Decline to Answer Education: Decline to Answer Difficulty w/ Childcare or Family Care: Decline to Answer Additional living arrangements comments: Currently in [facility]. 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 Spiritual care concerns: No Exam Narrative: APPEARANCE: Well appearing, no pain, no distress, well-nourished. HEAD: normocephalic, atraumatic. EYES: PERRLA/EOMI, conjunctivae clear. NOSE: Normal no drainage NECK: Supple. No adenopathy, no masses. RESPIRATORY: Airway patent, respirations nonlabored. Clear to auscultation bilaterally, no rales, rhonchi, wheezing. CARDIOVASCULAR: Regular rate and rhythm without murmurs rubs or gallops. ABDOMINAL: Soft, nontender, nondistended, normal bowel sounds MUSCULOSKELETAL: Moves all extremities. Strength/ROM intact, No edema, No calf tenderness. NEURO: Alert. Cranial nerves II through XII intact. Grossly intact SKIN: Warm, dry. Normal Color Course Course Emergency Course: 73-year-old male presented the E
[2023-05-04] MEDS: CEPHALEXIN 500 MG CAPSULE PO (18:15)
== END 2023-05-04 19:14 ==
PROVIDERS: Emergency Provider Emergency Medicine
DX: T83.098A Other mechanical complication of other urinary catheter, initial encounter (principal); N39.0 Urinary tract infection, site not specified; I25.10 Atherosclerotic heart disease of native coronary artery without angina pectoris; I69.351 Hemiplegia and hemiparesis following cerebral infarction affecting right dominant side; I10 Essential (primary) hypertension; E78.5 Hyperlipidemia, unspecified; G47.33 Obstructive sleep apnea (adult) (pediatric); Z96.651 Presence of right artificial knee joint; Z95.5 Presence of coronary angioplasty implant and graft; Z87.891 Personal history of nicotine dependence; Z90.5 Acquired absence of kidney; Z79.01 Long term (current) use of anticoagulants; Z79.82 Long term (current) use of aspirin; Y84.6 Urinary catheterization as the cause of abnormal reaction of the patient, or of later complication, without mention of misadventure at the time of the procedure
CPT/HCPCS: 36415; 51702; 80053; 81001; 85025; 87086; 87088; 99283; A9270

== ENCOUNTER 2023-06-23 13:45 | Emergency (ER) | payer MEDICARE, MEDICAID, SELFPAY ==
--- NOTE | ~2023-06-23 | US_ITS ---
US arterial ankle brachial ind INDICATION: Decreased right lower extremity pulses TECHNIQUE: Segmental pressures and plethysmographic and Doppler waveforms of the brachial and lower e xtremity arteries were obtained. COMPARISON: None. FINDINGS: Right and left brachial artery pressures of 148 mm Hg and 134 mm Hg, respectively, are concordant (no rmal difference <= 30 mmHg). The right ankle-brachial index (ESAU) is 0.97 (normal >= 0.9-1.0). The right great toe-brachial index (TBI) is 0.57. The left ESAU is 0.8. The left TBI is 0.68. IMPRESSION: 1. Normal right ESAU. 2: Diminished left ankle brachial index measured 0.8, consistent with mild peripheral arterial disea se. Reviewed, dictated and finalized at location B. IMPRESSION: 1. Normal right ESAU. 2: Diminished left ankle brachial index measured 0.8, consistent with mild per ipheral arterial disease.
--- NOTE | ~2023-06-23 | US_ITS ---
EXAMINATION: US venous doppler LE RT DATE: 06/23/2023 19:14 INDICATION: LE swelling, pain . TECHNIQUE: Grayscale images without and with compression and Doppler images of the right lower extrem ity veins were obtained. COMPARISON: None FINDINGS: The right common femoral vein, profunda (deep) femoral vein, femoral vein, popliteal vein, peroneal v ein, posterior tibial veins, gastrocnemius vein, and greater saphenous vein are patent. IMPRESSION: Patent right lower extremity veins. No evidence of deep venous thrombosis. Reviewed, dictated and finalized at location K.
[2023-06-23 13:56] VITALS: BP 133/61; PULSE 59; RESP 18; TEMP 36.3; O2SAT 96
[2023-06-23 14:29] LABS: Basophils Percent Auto 0.3 % (0.2-1.2); Eosinophils Absolute Auto 0.1 K/mm3 (0-0.3); Eosinophils Percent Auto 1.4 % (0-4.4); Hematocrit 34.1 % (42.0-52.0); Hemoglobin 10.5 g/dL (14.0-18.0); Immature Granulocyte Absolute 0.08 K/mm3 (0.00-0.031); Immature Granulocyte Percent A 0.9 % (0-0.5); Lymphocytes Absolute Auto 1.05 K/mm3 (0.9-3.2); Lymphocytes Percent Auto 11.4 % (18.3-44.2); Mean Corpuscular HGB Conc 30.8 g/dl (32-36); Mean Corpuscular Volume 94.2 fl (80-100); Mean Platelet Volume 10.7 fl (7.4-10.4); Monocytes Absolute Auto 0.4 K/mm3 (0.1-0.6); Monocytes Percent Auto 4.2 % (2.6-8.5); Neutrophils Absolute Auto 7.6 K/mm3 (1.3-6.7); Neutrophils Percent Auto 81.8 % (45.5-73.1); Platelet Count Result 280 k/mm3 (150-375); Red Blood Count 3.62 M/mm3 (4.6-6.20); Red Cell Distribution Width 15.9 % (11.5-14.5); White Blood Count 9.2 K/mm3 (4.5-10.0)
[2023-06-23 14:41] LABS: Partial Thromboplastin Time 32.5 SECONDS (22.3-36.8)
[2023-06-23 14:46] LABS: Alanine Aminotransferase 16 U/L (6-50); Alkaline Phosphatase 62 U/L (38-126); Anion Gap 7 mmol/L (8-16); Aspartate Amino Transferase 22 U/L (17-59); Bilirubin,Total 0.5 mg/dL (0.2-1.3); Blood Urea Nitrogen 50 mg/dL (9-20); Calcium 9.3 mg/dL (8.4-10.2); Carbon Dioxide 30 mmol/L (22-30); Chloride 103 mmol/L (98-107); Estimated CRCL calculation 36 ml/min; Estimated Glomerular Filt Rate 37; Glucose 122 mg/dL (65-110); Potassium 4.2 mmol/L (3.4-5.0); Sodium 140 mmol/L (137-145)
[2023-06-23 14:57] LABS: D Dimer 1.91 ug/mL (<0.48)
[2023-06-23 15:30] VITALS: BP 143/92; PULSE 58; RESP 18; TEMP 36.6; O2SAT 96
[2023-06-23 16:00] VITALS: BP 136/76; PULSE 61; RESP 18; O2SAT 98
[2023-06-23 16:26] LABS: INR 1.3; Prothrombin Time 16.3 Seconds (11.1-14.7)
[2023-06-23 16:30] VITALS: BP 141/86; PULSE 53; RESP 16; TEMP 36.4; O2SAT 96
--- NOTE | 2023-06-23 17:43 | ED.RECABL ---
HPI - Recheck/Abnormal Lab/Rx General Chief Complaint: Recheck/Abnormal Lab/Rx Stated Complaint: r/o DVT Time Seen by Provider: 06/23/23 15:51 History of Present Illness HPI narrative: Patient is a 73-year-old male presenting with right leg pain. Patient's daughter is at bedside and assists with the history. States that the patient resides at a nursing facility. States that he has been developing blisters on his right lower extremity that have been popping and healing. States that the [facility] was supposed to obtain an ultrasound of the leg last week but they did not. Patient's daughter states that she called them to complain so they performed the ultrasound today but they told her they would not have results for at least 5 days so they brought him in for evaluation today. They are also concerned that he has an infected sacral ulcer. No numbness or weakness, fevers or chills, nausea or vomiting, or other systemic symptoms. No blisters anywhere else, no other rashes, no mucosal membrane involvement. Related Data Home Medications Medication Instructions Recorded Confirmed aspirin 81 mg chewable tablet 81 mg PO DAILY 12/20/19 09/15/22 (Juvenal Chewable Low Dose Aspirin) atorvastatin 20 mg tablet 20 mg PO DAILY 12/20/19 09/15/22 metoprolol succinate 100 mg 25 mg PO BID 12/20/19 09/15/22 tablet,extended release 24 hr apixaban 5 mg tablet (Eliquis) 5 mg PO BID 09/15/22 09/15/22 gabapentin 300 mg capsule 300 mg PO TID 09/15/22 09/15/22 tamsulosin 0.4 mg capsule 0.4 mg PO HS 09/15/22 09/15/22 Allergies Allergy/AdvReac Type Severity Reaction Status Date / Time No Known Allergies Allergy Verified 05/04/23 16:00 Review of Systems Review of Systems: All systems reviewed & are unremarkable except as noted in HPI and below PMFSH Past Medical History Medical History Chronic anticoagulation Coronary artery disease Eosinophilia Essential hypertension History of tobacco abuse Hyperlipemia Hypertension Obstructive sleep apnea Stroke (2006) Residual left-sided weakness. Surgical History Surgical History History of arthroplasty of right knee History of cardiac catheterization History of colonoscopy History of coronary artery stent placement History of nephrectomy, right Reportedly for large kidney stones. Family History Family History Other Heart disease Hypertension Social History Social History Social History: Surrogate medical decision maker: Nelda Najera, daughter. Code status: Full code. Smoking packs per day: 1 Smoking cigarettes per day: 20.0 Years smoked: 40 Smoking pack-years: 40.00 Smoking status: Former smoker Tobacco type: cigarettes Second hand tobacco smoke exposure: Yes Smoking end date: 10/12/06 Additional smoking assessment comments: quit in 2009 Alcohol intake: never Substance use: never Lack of Transportation: No Lack of Food: Never True Current Housing: I Have Housing Concerned About Future Housing: Decline to Answer Difficulty Paying Gas/Electric Bills: Decline to Answer Difficulty Paying for Meds: Decline to Answer Currently Unemployed: Decline to Answer Education: Decline to Answer Difficulty w/ Childcare or Family Care: Decline to Answer Additional living arrangements comments: Currently in [facility]. 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 Spiritual care concerns: No Exam Narrative: GENERAL: In no acute distress, pleasant and cooperative HEAD: Normocephalic, atraumatic. EYES: PERRLA and EOMI. ENT: Nares clear, no rhinorrhea or epistaxis. Mucous membranes moist. NECK: Supple. CHEST: Clear to auscultation. No respiratory distress. HEART: Regular rate and rhyth
[2023-06-23] MEDS: ACETAMINOPHEN 500 MG TABLET 1000 MG PO (17:59)
[2023-06-23] MEDS: SODIUM CHLORIDE 0.9% IV 1,000 ML 999 ML IV CONT (17:59)
--- NOTE | 2023-06-23 18:59 | PC.NURSE ---
Pt remains off unit for doppler studies
--- NOTE | 2023-06-23 19:28 | PC.NURSE ---
This RN assumed care of patient. This RN took patient report from JOSS Ackerman.
== END 2023-06-23 22:22 ==
PROVIDERS: Emergency Medicine; Emergency Provider Emergency Medicine
DX: L89.159 Pressure ulcer of sacral region, unspecified stage (principal); R23.8 Other skin changes; R09.89 Other specified symptoms and signs involving the circulatory and respiratory systems; I25.10 Atherosclerotic heart disease of native coronary artery without angina pectoris; I10 Essential (primary) hypertension; I69.351 Hemiplegia and hemiparesis following cerebral infarction affecting right dominant side; E78.5 Hyperlipidemia, unspecified; G47.33 Obstructive sleep apnea (adult) (pediatric); Z95.5 Presence of coronary angioplasty implant and graft; Z90.5 Acquired absence of kidney; Z87.442 Personal history of urinary calculi; Z87.891 Personal history of nicotine dependence; Z79.82 Long term (current) use of aspirin; Z79.01 Long term (current) use of anticoagulants
CPT/HCPCS: 36415; 80053; 85025; 85380; 85610; 85730; 93922; 93971; 96360; 96361; 99284; A9270; J7030

== ENCOUNTER 2023-09-09 07:22 | Emergency (ER) | payer MEDICARE, MEDICAID, SELFPAY ==
--- NOTE | ~2023-09-09 | US_ITS ---
EXAMINATION: US scrotum doppler DATE: 09/09/2023 08:53 INDICATION: Left testicular pain. TECHNIQUE: Grayscale and Doppler ultrasound images of the testes were obtained. COMPARISON: None. FINDINGS: The right testis measures 3.8 x 2.8 x 2.7 cm. The left testis measures 3.7 x 2.6 x 3.0 cm. There is normal vascular flow to both testes. The right epididymis is normal with normal vascular marietta w. The left epididymis is normal with normal vascular flow. There is a moderate-sized right hydrocele . IMPRESSION: 1. Moderate-sized right hydrocele. Reviewed, dictated and finalized at location A. 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
[2023-09-09 07:31] VITALS: BP 162/78; PULSE 64; RESP 16; TEMP 36.9; O2SAT 96
--- NOTE | 2023-09-09 07:40 | ED.GENADULT ---
HPI - General Adult General Chief complaint: Urogenital-Male Stated complaint: testicular pain Time Seen by Provider: 09/09/23 07:23 History of Present Illness HPI narrative: 73-year-old male presents emergency department for evaluation left testicular pain started bothering him a few days ago. Patient also had his Starks catheter changed yesterday and has noticed decreased urinary output from the Starks catheter. Patient is currently on doxycycline for his skin. Related Data Home Medications Medication Instructions Recorded Confirmed aspirin 81 mg chewable tablet 81 mg PO DAILY 12/20/19 09/15/22 (Juvenal Chewable Low Dose Aspirin) atorvastatin 20 mg tablet 20 mg PO DAILY 12/20/19 09/15/22 metoprolol succinate 100 mg 25 mg PO BID 12/20/19 09/15/22 tablet,extended release 24 hr apixaban 5 mg tablet (Eliquis) 5 mg PO BID 09/15/22 09/15/22 gabapentin 300 mg capsule 300 mg PO TID 09/15/22 09/15/22 tamsulosin 0.4 mg capsule 0.4 mg PO HS 09/15/22 09/15/22 Allergies Allergy/AdvReac Type Severity Reaction Status Date / Time No Known Allergies Allergy Verified 05/04/23 16:00 Review of Systems Review of Systems: All systems reviewed & are unremarkable except as noted in HPI and below PMFSH Past Medical History Medical History Chronic anticoagulation Coronary artery disease Eosinophilia Essential hypertension History of tobacco abuse Hyperlipemia Hypertension Obstructive sleep apnea Stroke (2006) Residual left-sided weakness. Surgical History Surgical History History of arthroplasty of right knee History of cardiac catheterization History of colonoscopy History of coronary artery stent placement History of nephrectomy, right Reportedly for large kidney stones. Family History Family History Other Heart disease Hypertension Social History Social History Social History: Surrogate medical decision maker: Nelda Najera, daughter. Code status: Full code. Smoking packs per day: 1 Smoking cigarettes per day: 20.0 Years smoked: 40 Smoking pack-years: 40.00 Smoking status: Former smoker Tobacco type: cigarettes Second hand tobacco smoke exposure: Yes Smoking end date: 10/12/06 Additional smoking assessment comments: quit in 2009 Alcohol intake: never Substance use: never Lack of Transportation: No Lack of Food: Never True Current Housing: I Have Housing Concerned About Future Housing: Decline to Answer Difficulty Paying Gas/Electric Bills: Decline to Answer Difficulty Paying for Meds: Decline to Answer Currently Unemployed: Decline to Answer Education: Decline to Answer Difficulty w/ Childcare or Family Care: Decline to Answer Additional living arrangements comments: Currently in [facility]. 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 Spiritual care concerns: No Exam Narrative: APPEARANCE: Well appearing, no pain, no distress, well-nourished. HEAD: normocephalic, atraumatic. EYES: PERRLA/EOMI, conjunctivae clear. NOSE: Normal no drainage NECK: Supple. No adenopathy, no masses. RESPIRATORY: Airway patent, respirations nonlabored. Clear to auscultation bilaterally, no rales, rhonchi, wheezing. CARDIOVASCULAR: Regular rate and rhythm without murmurs rubs or gallops. ABDOMINAL: suprapubic tenderness to palpation, no scrotal edema but left testicle is larger than the right. MUSCULOSKELETAL: Moves all extremities. Strength/ROM intact, No edema, No calf tenderness. NEURO: Alert. Cranial nerves II through XII intact. Good gait. Good coordination SKIN: Warm, dry. Normal Color Course Course Emergency Course: 73-year-old male presenting to the ED for evaluation of a Starks catheter issue lef
[2023-09-09 08:00] LABS: Basophils Absolute Auto 0.1 K/mm3 (0.0-0.1); Basophils Percent Auto 0.7 % (0.2-1.2); Eosinophils Absolute Auto 0.4 K/mm3 (0-0.3); Eosinophils Percent Auto 4.9 % (0-4.4); Hematocrit 34.1 % (42.0-52.0); Hemoglobin 10.7 g/dL (14.0-18.0); Immature Granulocyte Absolute 0.04 K/mm3 (0.00-0.031); Immature Granulocyte Percent A 0.6 % (0-0.5); Lymphocytes Absolute Auto 1.05 K/mm3 (0.9-3.2); Lymphocytes Percent Auto 14.7 % (18.3-44.2); Mean Corpuscular HGB Conc 31.4 g/dl (32-36); Mean Corpuscular Hemoglobin 29.6 pg (26-34); Mean Corpuscular Volume 94.2 fl (80-100); Monocytes Absolute Auto 0.8 K/mm3 (0.1-0.6); Monocytes Percent Auto 11.2 % (2.6-8.5); Neutrophils Absolute Auto 4.8 K/mm3 (1.3-6.7); Neutrophils Percent Auto 67.9 % (45.5-73.1); Platelet Count Result 198 k/mm3 (150-375); Red Blood Count 3.62 M/mm3 (4.6-6.20); Red Cell Distribution Width 16.6 % (11.5-14.5); White Blood Count 7.1 K/mm3 (4.5-10.0)
[2023-09-09 08:14] LABS: Alanine Aminotransferase 18 U/L (6-50); Albumin Level 3.5 g/dL (3.5-5.1); Alkaline Phosphatase 53 U/L (38-126); Anion Gap 7 mmol/L (8-16); Aspartate Amino Transferase 24 U/L (17-59); Bilirubin,Total 1.1 mg/dL (0.2-1.3); Blood Urea Nitrogen 47 mg/dL (9-20); Carbon Dioxide 27 mmol/L (22-30); Chloride 104 mmol/L (98-107); Estimated CRCL calculation 42 ml/min; Estimated Glomerular Filt Rate 43; Glucose 92 mg/dL (65-110); Sodium 138 mmol/L (137-145)
[2023-09-09 08:16] LABS: Appearance Urine Cloudy (Clear); Bacteria Urine 1+ /hpf; Bilirubin Urine Negative (Negative); Blood Urine 3+ (Negative); Color Urine Yellow (Yellow); Glucose Urine UA Negative (Negative); Ketones Urine Negative (Negative); Leukocyte Esterase Ur 3+ LEU/UL (Negative); Need Manual Microscopic Reviewed; Nitrate Urine Negative (Negative); Non Pathogenic Casts 0-2; Protein Urine 1+ mg/dL (Negative); RBC Urine >100 /hpf (0-2); Specific Grav Ur 1.016 (1.001-1.035); Squamous Epithelial Cell Urine None seen /hpf (Few); Urobilinogen Urine 0.2 mg/dL (<2.0); WBC Urine >100 /hpf; pH Urine 6.5 (5.0-9.0)
[2023-09-09 08:19] LABS: Add Urine Microscopic? YES
[2023-09-09 11:15] VITALS: BP 155/72; PULSE 69; RESP 16; O2SAT 98
== END 2023-09-09 11:15 ==
PROVIDERS: Emergency Provider Emergency Medicine
DX: N39.0 Urinary tract infection, site not specified (principal); N43.3 Hydrocele, unspecified; Z43.6 Encounter for attention to other artificial openings of urinary tract; I25.10 Atherosclerotic heart disease of native coronary artery without angina pectoris; E78.5 Hyperlipidemia, unspecified; I10 Essential (primary) hypertension; Z79.01 Long term (current) use of anticoagulants; Z86.73 Personal history of transient ischemic attack (TIA), and cerebral infarction without residual deficits; Z87.891 Personal history of nicotine dependence
CPT/HCPCS: 36415; 51702; 76870; 80053; 81001; 85025; 87077; 87086; 87186; 93976; 96365; 99284; J0696